=== PATIENT | female | born 1970 | race Hispanic/Latino ===

== ENCOUNTER 2016-07-25 16:35 | Inpatient (IN) | payer MEDICAID, OTHER ==
[~2016-07-25] VITALS: Ht 154.9 cm; Wt 41.8 kg
[~2016-07-25 16:35] MED LIST: ABIL5TAB5 PO; ALBU17IN INH; ALBU17IN2 INH; CETI10TA OR; CITA40TA4 PO; DEPA500T2 OR; DOXY100T OR; EFFE150C OR; EUCECRE3 TOP; HYDR4TAB PO; MAG400TA PO; MAGN1TAB25 PO; MAGN200T3 PO; MAXA10TA15 PO; MIRT15SOTA PO; MIRT1TAB3 PO; NAPR500T81 OR; NICO21DI5 TD; PROTPAK PO; REME15TA2 PO; TRAZ50TA4 PO; TYLE325T5 PO; VITA100L PO; VITA200028 PO; ZOLO50TA OR
[2016-07-25] MEDS ORDERED: CHARCOAL ACTIVATED LIQUID 25 GM/120 ML BTL As Ordered ONE (16:59)
[2016-07-25 17:22] LABS: MEAN CORPUSCULAR HGB CONC 34.2 g/dl (32.0-36.5); MEAN CORPUSCULAR VOLUME 93.4 fl (80.0-96.0); RED CELL DISTRIBUTION WIDTH 13.7 % (11.5-14.5); WHITE BLOOD COUNT 4.7 K/mm3 (4.0-10.0)
[2016-07-25 17:25] LABS: CONTROL LINE HCG INT CTR LINE PRESENT
[2016-07-25 17:37] LABS: ALBUMIN/GLOBULIN RATIO 1.29 (1.00-1.93); ALKALINE PHOSPHATASE 95 U/L (45-117); ALT/SGPT 12 U/L (12-78); ANION GAP 10 MEQ/L (8-16); AST/SGOT 11 U/L (15-37); BILIRUBIN,DIRECT 0.2 MG/DL (0.0-0.2); BILIRUBIN,TOTAL 0.6 MG/DL (0.2-1.0); BLOOD UREA NITROGEN 9 MG/DL (7-18); CALCIUM LEVEL 8.8 MG/DL (8.5-10.1); CARBON DIOXIDE LEVEL 27 MEQ/L (21-32); CHLORIDE LEVEL 102 MEQ/L (98-107); CREATININE FOR GFR 0.62 MG/DL (0.55-1.02); GLOMERULAR FILTRATION RATE > 60.0 (>58); GLUCOSE, FASTING 111 MG/DL (70-105); POTASSIUM SERUM 3.7 MEQ/L (3.5-5.1); SODIUM LEVEL 139 MEQ/L (136-145); TOTAL PROTEIN 7.1 GM/DL (6.4-8.2)
[2016-07-25 17:57] LABS: AMPHETAMINES LEVEL URINE NEGATIVE (NEGATIVE); BENZODIAZEPINES URINE NEGATIVE (NEGATIVE); COCAINE METABOLITE URINE NEGATIVE (NEGATIVE); CONTROL LINE INT CTR LINE PRESENT; METHADONE URINE NEGATIVE (NEGATIVE); OPIATES URINE NEGATIVE (NEGATIVE); TRICYCLIC ANTIDEPRESS URINE NEGATIVE (NEGATIVE)
[2016-07-25] MEDS ORDERED: MIRT1TAB3 PO (18:53)
[2016-07-25] MEDS ORDERED: [UNRECOGNIZED DRUG - CODE] PO (18:53)
[2016-07-25] MEDS ORDERED: PROT1TAB2 PO (18:53)
[2016-07-25] MEDS ORDERED: MAXA10TA15 PO (18:54)
[2016-07-25] MEDS ORDERED: ONDANSETRON 4MG/2ML VIAL (J2405) IV PRN (19:30)
--- NOTE | 2016-07-25 20:05 | ECGEPIP ---
Stationary ECG Study [facility] - ED Test Date: 2016-07-25 Pat Name: JUSTUS HALL Department: Room: - Gender: F Filenet Developer: smith : 1970 Requested By: TRE Jean Order Number: [id number] Reading MD: Valerie Avila Measurements Intervals [place] Rate: 140 P: 81 ME: 132 QRS: 25 QRSD: 72 T: 68 QT: 279 QTc: 427 Interpretive Statements SINUS TACHYCARDIA, POSSIBLE ATRIAL FLUTTER MINIMAL ST DEPRESSION ABNORMAL RHYTHM ECG KRYSTA NSTTW ABNORMALITY Electronically Signed On 07-25-2016 20:05:08 EST by Valerie Avila
[2016-07-25] MEDS: HEPARIN SOD (PORCINE) 5000 UNITS/ML VIAL SC SCH (22:00)
--- NOTE | 2016-07-25 22:01 | EDDOCDS ---
Physician Documentation [facility] Name: Gracy Trejo Age: 45 yrs Sex: Female : 1970 Arrival Date: 07/25/2016 Time: 16:35 Bed 4 Private MD: Michael Arreola MD Disposition: 07/25/16 18:53 Hospitalization ordered by Ana Gagnon for Inpatient Admission. Preliminary diagnosis are Poisoning by other antipsychotics and neuroleptics, intentional self-harm, Hypotension. - Bed requested for PCU. - Status is Inpatient Admission. sls1 - Condition is Stable. - Problem is new. - Symptoms are unchanged. Historical: - Allergies: Codeine Sulfate; eggs; PENICILLINS; - Home Meds: 1. Maxalt-STICK INSERTER 10 mg oral TbDL 1 tab as needed for as needed 2. Protonix 40 mg Oral TbEC 1 tab once daily (Last dose: 07/25/2016 08:00) 3. risperidone 0.5 mg oral tab once daily - PMHx: Depression; Migraine Headaches; - PSHx: ; anal fissure; - Social history: Smoking status: Patient uses tobacco products, heavy tobacco smoker. No barriers to communication noted, The patient speaks fluent [place]i, Speaks appropriately for age, Preferred Language: O[place]i. - Family history: Not pertinent. - : The pt / caregiver states he / she is not on anticoagulants. Home medication list is obtained from the patient. - Exposure Risk Screening:: None identified. COSMETOLOGIST: 07/25 18:27 LMP N/A - pt states menopausal hs1 Vital Signs: 16:46 BP 94 / 56; Pulse 146; Resp 18; Pulse Ox 98% ; Weight 40.37 kg / 89 lbs; Height 5 ft. 1 hs1 in. (154.94 cm); Pain 0/10; 16:46 BP 94 / 56 (auto/); af2 16:47 Pulse 152 MON; Resp 18 S; Pulse Ox 98% on R/A; af2 16:53 Pulse 148 MON; Pulse Ox 98% ; af2 16:57 Temp 96.9(O); jlf 17:01 BP 94 / 54 (auto/); hs1 17:01 Pulse 144 MON; Pulse Ox 100% ; hs1 17:16 BP 106 / 55 (auto/); hs1 17:16 Pulse 148 MON; Pulse Ox 98% ; hs1 17:31 BP 117 / 66 (auto/); hs1 17:31 Pulse 160 MON; Pulse Ox 99% ; hs1 17:46 BP 95 / 58 (auto/); hs1 17:46 Pulse 136 MON; Pulse Ox 99% ; hs1 20:03 BP 126 / 56 LA; Pulse 140; Resp 18 S; Pulse Ox 96% on R/A; af2 21:54 BP 95 / 56; Pulse 102; Resp 18; Temp 99.3(TE); Pulse Ox 94% on R/A; nn1 16:46 Body Mass Index 16.82 (40.37 kg, 154.94 cm) hs1 MDM: 16:38 Consult PFS/PSA/Supervisor Carbon Electrodes ordered. br1 16:38 Consult PFS/PSA/Supervisor Carbon Electrodes: Patient's case requires discussion with on-call br1 Psychiatrist ordered. 16:38 PSA/PFS to call Nursing Nutrition Partner, to enter patient data on [place] Safe Act if patient br1 involuntarily admitted or transferred for SI or HI ordered. 16:38 Call Poison Control ordered. br1 16:38 Confirm accurate psychiatric medication list and times of last dosage ordered. br1 16:38 Detain Pt Until Medically/PFS Cleared ordered. br1 16:38 IV Saline Lock ordered. br1 16:38 Project Management Specialist/Pulse Ox/q 30 min VS ordered. br1 16:39 ECG WITH READING ER PHYS+CARDIAG ordered. EDMS 16:40 Acetaminophen Level Ordered. EDMS 16:40 Basic Metabolic Profile Ordered. EDMS 16:40 Complete Blood Count Ordered. EDMS 16:40 Drug Eval Toxicology ED Only Ordered. EDMS 16:40 Ethyl Alcohol (ethanol) Ordered. EDMS 16:40 Liver Profile Ordered. EDMS 16:40 Salicylate Level Ordered. EDMS 16:40 Thyroid Stimulating Hormone Ordered. EDMS 16:53 NS 0.9% 500 ml IV at bolus once ordered. br1 16:53 NS 0.9% 1000 ml IV at 150 mL/hr continuous ordered. br1 16:53 Oral Temp ordered. br1 16:54 HCG,Serum Qualitative Ordered. EDMS 16:55 Activated Charcoal (1g/kg) Suspension 40 grams PO once ordered. br1 17:07 TROPONIN Ordered. EDMS 17:12 Activated Charcoal (1g/kg) Suspension 40 grams PO once ordered. hs1 17:43 Financial registration complete. gjb 17:47 [facility] [place] [place] Payment Agreement was scanned into [employer] and attached to record. gjb 17:49 NS 0.9% 500 ml IV at bolus once ordered. br1 17:50 Acetaminophen Level Reviewed. br1 17:50 Basic Metabolic Profile Reviewed. br1 17:50 Liver Profile Reviewed. br1 17:50 Salicylate Level Reviewed. br1 17:50 HCG,Serum Qualitative Reviewed. br1 17:50 Complete Blood Count Reviewed. br1 17:50 Ethyl Alcohol (ethanol) Reviewed. br1 17:50 TROPONIN Reviewed. br1 17:52 Hcg, Serum Quantitative Ordered. EDMS 18:38 Acetaminophen Level Reviewed. br1 18:38 Basic Metabolic Profile Reviewed. br1 18:38 Liver Profile Reviewed. br1 18:38 Salicylate Level Reviewed. br1 18:38 Drug Eval Toxicology ED Only Reviewed. br1 18:38 Ethyl Alcohol (ethanol) Reviewed. br1 18:38 Thyroid Stimulating Hormone Reviewed. br1 18:38 TROPONIN Reviewed. br1 18:38 Hcg, Serum Quantitative Reviewed. br1 18:43 BED REQUEST+ADM ordered. EDMS 19:49 NPO DIET ordered. EDMS 19:50 COMPLETE BLOOD COUNT Ordered. EDMS 19:50 BASIC METABOLIC PROFILE Ordered. EDMS 19:51 Admission / Observation Status ordered. EDMS Administered Medications: 17:13 Drug: NS 0.9% 500 ml [sodium chloride 0.9 % intravenous solution] Route: IV; Rate: hs1 bolus; Site: left antecubital; 17:13 Drug: Activated Charcoal (1g/kg) 40 grams [activated charcoal 25 gram/120 mL oral hs1 suspension (3840 drps)] Route: PO; 17:55 Drug: NS 0.9% 500 ml [sodium chloride 0.9 % intravenous solution] Route: IV; Rate: hs1 bolus; Site: left antecubital; 18:26 Drug: NS 0.9% 1000 ml [sodium chloride 0.9 % intravenous solution] Route: IV; Rate: 150 hs1 mL/hr; Site: left antecubital; Signatures: Dispatcher [employer] EDMS Jake Hong MD MD br1 No Lomeli RN RN hs1 Virgen Weiss RN RN sls1 Harini Saldana RN RN af2 Shawna Romero b The chart was reviewed and I authenticate all verbal orders and agree with the evaluation and treatment provided.Corrections: (The following items were deleted from the chart) 17:07 17:02 TROPONIN+LAB ordered. EDMS EDMS Attachments: 17:47 [facility] Payment Agreement sixto MTDD
--- NOTE | 2016-07-25 22:01 | EDDOCDS ---
Nurse's Notes [facility] Name: Gracy Trejo Age: 45 yrs Sex: Female : 1970 Arrival Date: 07/25/2016 Time: 16:35 Bed 4 Private MD: Michael Arreola MD Diagnosis: Poisoning by other antipsychotics and neuroleptics, intentional self-harm;Hypotension Presentation: 07/25 16:38 Presenting complaint: EMS states: took approx 20+ risperidone. Pt states has not been hs1 taking regularly and has history of anxiety and depression and decided today to take them. When asked if she wanted to end her life pt responds with "I guess". Pt appears unkempt. Pt openly admits to not wanting to live. Adult Sepsis Screening: The patient does not have new or worsening altered mentation. Patient's respiratory rate is less than 22. Systolic blood pressure is greater than 100. Patient has a qSOFA score of 0- Negative Sepsis Screen. Suicide/Homicide risk assessment- The patient admits to and/or has been reported to be having suicidal ideations. The patient reports that he/she has not been admitted to an inpatient mental health facility in the last 30 days. The patient reports that he/she has a recent or current history of substance abuse. The patient reports that he/she has no prior history of suicide attempt and/or organized plan. The patient reports that he/she has experienced a significant life altering event in the last 30 days. The patient reports that he/she has adequate social support. The patient reports he/she has no significant chronic medical condition(s). Status: Patient is not a business services clerk or dependent. Transition of care: patient was not received from another setting of care. 16:38 Acuity: NANCY Level 3 hs1 16:38 Method Of Arrival: Ambulance hs1 Triage Assessment: 16:45 General: Appears in no apparent distress, Behavior is appropriate for age. General: hs1 Appears unkempt. Pain: Denies pain. HIV screening NA for this visit Offered previously. Neurological: Level of Consciousness is awake, alert, obeys commands. Cardiovascular: Capillary refill < 3 seconds. Respiratory: Airway is patent Respiratory effort is even, unlabored, Respiratory pattern is regular, symmetrical, Breath sounds are diminished bilaterally. 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 Maxalt-GRADER GREEN MEAT 10 mg oral TbDL 1 tab as needed for as needed 2. Protonix 40 mg Oral TbEC 1 tab once daily (Last dose: 07/25/2016 08:00) 3. risperidone 0.5 mg oral tab once daily - PMHx: Depression; Migraine Headaches; - PSHx: ; anal fissure; - Social history: Smoking status: Patient uses tobacco products, heavy tobacco smoker. No barriers to communication noted, The patient speaks fluent [place] Citizen, Speaks appropriately for age, Preferred Language: [place] Citizen. - Family history: Not pertinent. - : The pt / caregiver states he / she is not on anticoagulants. Home medication list is obtained from the patient. - Exposure Risk Screening:: None identified. Screenin:53 Screening information is obtained from the patient. Fall risk: No risks identified. hs1 Assistance ADL's: requires no assistance with activities of daily living. Abuse/DV Screen: The patient / caregiver reports he/she is: not in a situation that causes fear, pain or injury. Nutritional screening: No deficits noted. Advance Directives: There is no active DNR order. home support is adequate. Assessment: 17:28 General: Appears in no apparent distress, unkempt, Behavior is cooperative. Pain: hs1 Denies pain. Neurological: Level of Consciousness is awake, alert, obeys commands. Cardiovascular: Rhythm is sinus tachycardia No ectopy. Reports palpitations. Respiratory: Airway is patent Respiratory effort is even, unlabored, Respiratory pattern is regular, symmetrical. Derm: Skin is pink, warm & dry. normal. 18:27 General: Appears in no apparent distress, comfortable, unkempt, Behavior is appropriate hs1 for age, cooperative. Pain: Denies pain. Neurological: Level of Consciousness is awake, alert, obeys commands, Pt asking about going home and patient is aware that she cannot go home at present due to overdosing on medications and telling staff that she had taken them to kill herself. . Cardiovascular: Rhythm is sinus tachycardia No ectopy. Derm: Skin is pink, warm & dry. normal. 19:04 General: Appears in no apparent distress, comfortable, Behavior is anxious, appropriate af2 for age, cooperative, assumed care of pt at this time, rr even and unlabored. pt requests to have cell phone upstairs, updated regarding psych rules. pt states that she's hungry.. Neurological: Level of Consciousness is awake, alert, obeys commands. Cardiovascular: Rhythm is sinus tachycardia No ectopy. Respiratory: Airway is patent Respiratory effort is even, unlabored. Derm: Skin is normal. 19:38 General: Appears unkempt, Behavior is uncooperative, pt removes her own cardiac leads, af2 piv, SpO2 probe, and blood pressure cuff. states to this freelance copywriter "I'm leaving, I don't have to stay here." pt attempts to leave room and leave ER. pt escorted back to room by this freelance copywriter, Dr. Boswell, and Yanick, [employer] SERVICE SPRAY SUPERVISOR. . 19:48 General: Hospitalist notified of pt's outburst and attempt to leave ER. No new orders af2 received. Sitter at bedside.. 20:11 General: per Dr. Hong, poison control was called by day shift nursing staff.. af2 20:25 General: Appears in no apparent distress, comfortable, Behavior is appropriate for age, af2 cooperative, pt sitting upright on stretcher. sitter at bedside. . Neurological: Level of Consciousness is awake, alert, obeys commands. Cardiovascular: Rhythm is sinus tachycardia No ectopy. Respiratory: Airway is patent Respiratory effort is even, unlabored. Derm: Skin is normal. 21:06 General: Appears in no apparent distress, comfortable, Behavior is appropriate for age, af2 cooperative, pt seated on stretcher. rr even and unlabored. . Neurological: Level of Consciousness is awake, alert, obeys commands. Cardiovascular: Rhythm is sinus tachycardia No ectopy. Respiratory: Airway is patent Respiratory effort is even, unlabored. Derm: Skin is normal. 21:55 General: Appears in no apparent distress, comfortable, Behavior is appropriate for age, af2 cooperative. Neurological: Level of Consciousness is awake, alert, obeys commands. Cardiovascular: Rhythm is sinus tachycardia No ectopy. Respiratory: Airway is patent Respiratory effort is even, unlabored. Derm: Skin is pink, warm & dry. normal. Vital Signs: 16:46 BP 94 / 56; Pulse 146; Resp 18; Pulse Ox 98% ; Weight 40.37 kg; Height 5 ft. 1 in. hs1 (154.94 cm); Pain 0/10; 16:46 BP 94 / 56 (auto/); af2 16:47 Pulse 152 MON; Resp 18 S; Pulse Ox 98% on R/A; af2 16:53 Pulse 148 MON; Pulse Ox 98% ; af2 16:57 Temp 96.9(O); jlf 17:01 BP 94 / 54 (auto/); hs1 17:01 Pulse 144 MON; Pulse Ox 100% ; hs1 17:16 BP 106 / 55 (auto/); hs1 17:16 Pulse 148 MON; Pulse Ox 98% ; hs1 17:31 BP 117 / 66 (auto/); hs1 17:31 Pulse 160 MON; Pulse Ox 99% ; hs1 17:46 BP 95 / 58 (auto/); hs1 17:46 Pulse 136 MON; Pulse Ox 99% ; hs1 20:03 BP 126 / 56 LA; Pulse 140; Resp 18 S; Pulse Ox 96% on R/A; af2 21:54 BP 95 / 56; Pulse 102; Resp 18; Temp 99.3(TE); Pulse Ox 94% on R/A; nn1 16:46 Body Mass Index 16.82 (40.37 kg, 154.94 cm) hs1 Vitals: 16:46 Log In Time N/A - ambulance arrival. hs1 ED Course: 16:36 Patient visited by Angelina Pavon, Churn Driller. lbd 16:36 Michael Arreola is Private Physician. lbd 16:36 Patient moved to Waiting lbd 16:36 Patient moved to 4 lbd 16:37 Jake Hong MD is Attending Physician. br1 16:38 Patient visited by No Lomeli RN. hs1 16:42 Triage Initiated hs1 16:55 Patient visited by Jake Hong MD. br1 16:57 Patient visited by Skip Mejia PCA. jlf 16:57 EKG done. (by ED staff). Reviewed by Jake Hong MD. jlf 16:58 Acetaminophen Level Sent. hs1 16:58 Basic Metabolic Profile Sent. hs1 16:58 Complete Blood Count Sent. hs1 16:58 Ethyl Alcohol (ethanol) Sent. hs1 16:58 Liver Profile Sent. hs1 16:58 Salicylate Level Sent. hs1 16:58 Thyroid Stimulating Hormone Sent. hs1 16:58 HCG,Serum Qualitative Sent. hs1 17:13 TROPONIN Sent. hs1 17:43 Patient visited by Skip Mejia PCA. jlf 17:47 [facility] Payment Agreement was scanned into [employer] and attached to record. gjb 17:50 Patient name changed from Gracy\\S\\\\S\\Neil\\S\\ to Gracy\\S\\ \\S\\Neil. EDMS 17:50 Maintain field IV. Site clean & dry. Gauge & site: 18 gauge in left AC. hs1 17:53 Patient visited by No Lomeli RN. hs1 18:03 Hcg, Serum Quantitative Sent. hs1 18:26 The patient / caregiver is instructed regarding the plan of care and ED course. hs1 18:26 No procedures done that require assistance. hs1 18:29 Patient visited by No Lomeli RN. hs1 18:53 GenakushAna is Hospitalizing Provider. br1 19:04 Harini Saldana RN is Primary Nurse. af2 19:07 Patient visited by Harini Saldana RN. af2 19:22 Patient visited by Harini Saldana RN. af2 19:40 Patient visited by Harini Saldana RN. af2 19:53 Patient visited by Harini Saldana RN. af2 20:06 EKG-ADULT Returned. EDMS 20:07 Patient visited by Harini Saldana RN. af2 20:14 Patient visited by Harini Saldana RN. af2 20:17 IV was D/C'd by patient. af2 20:18 Patient visited by Harini Saldana RN. af2 20:18 Inserted saline lock: 20 gauge in left antecubital area The patient tolerated the af2 procedure well. 20:26 Patient visited by Harini Saldana RN. af2 21:07 Patient visited by Harini Saldana RN. af2 21:56 Patient visited by Harini Saldana RN. af2 Administered Medications: 17:13 Drug: NS 0.9% 500 ml [sodium chloride 0.9 % intravenous solution] Route: IV; Rate: hs1 bolus; Site: left antecubital; 17:13 Drug: Activated Charcoal (1g/kg) 40 grams [activated charcoal 25 gram/120 mL oral hs1 suspension (3840 drps)] Route: PO; 17:55 Drug: NS 0.9% 500 ml [sodium chloride 0.9 % intravenous solution] Route: IV; Rate: hs1 bolus; Site: left antecubital; 18:26 Drug: NS 0.9% 1000 ml [sodium chloride 0.9 % intravenous solution] Route: IV; Rate: 150 hs1 mL/hr; Site: left antecubital; Order Results: Lab Order: Acetaminophen Level; SPEC'M 07/25/16 16:58 Test: ACETAMINOPHEN LEVEL; Value: < 2.0; Range: 10.0-30.0; Abnormal: Below low normal; Units: UG/ML; Status: F Lab Order: Basic Metabolic Profile; SPEC'M 07/25/16 16:58 Test: GLUCOSE, FASTING; Value: 111; Range: 70-105; Abnormal: Above high normal; Units: MG/DL; Status: F Test: BLOOD UREA NITROGEN; Value: 9; Range: 7-18; Units: MG/DL; Status: F Test: CREATININE FOR GFR; Value: 0.62; Range: 0.55-1.02; Units: MG/DL; Status: F Test: GLOMERULAR FILTRATION RATE; Value: > 60.0; Range: >58; Status: F Test: SODIUM LEVEL; Value: 139; Range: 136-145; Units: MEQ/L; Status: F Test: POTASSIUM SERUM; Value: 3.7; Range: 3.5-5.1; Units: MEQ/L; Status: F Test: CHLORIDE LEVEL; Value: 102; Range: 98-107; Units: MEQ/L; Status: F Test: CARBON DIOXIDE LEVEL; Value: 27; Range: 21-32; Units: MEQ/L; Status: F Test: ANION GAP; Value: 10; Range: 8-16; Units: MEQ/L; Status: F Test: CALCIUM LEVEL; Value: 8.8; Range: 8.5-10.1; Units: MG/DL; Status: F Test Note: ; Units are mL/min/1.73 m2 Chronic Kidney Disease Staging per NKF: Stage I & II GFR >=60 Normal to Mildly Decreased Stage III GFR 30-59 Moderately Decreased Stage IV GFR 15-29 Severely Decreased Stage V GFR <15 Very Little GFR Left ESRD GFR <15 on MANAGER [facility]IN[facility]Y Lab Order: Complete Blood Count; SPEC'M 07/25/16 16:58 Test: WHITE BLOOD COUNT; Value: 4.7; Range: 4.0-10.0; Units: K/mm3; Status: F Test: RED BLOOD COUNT; Value: 4.38; Range: 4.00-5.40; Units: M/mm3; Status: F Test: HEMOGLOBIN; Value: 14.0; Range: 12.0-16.0; Units: g/dl; Status: F Test: HEMATOCRIT; Value: 41.0; Range: 36.0-47.0; Units: %; Status: F Test: MEAN CORPUSCULAR VOLUME; Value: 93.4; Range: 80.0-96.0; Units: fl; Status: F Test: MEAN CORPUSCULAR HEMOGLOBIN; Value: 32.0; Range: 27.0-33.0; Units: pg; Status: F Test: MEAN CORPUSCULAR HGB CONC; Value: 34.2; Range: 32.0-36.5; Units: g/dl; Status: F Test: RED CELL DISTRIBUTION WIDTH; Value: 13.7; Range: 11.5-14.5; Units: %; Status: F Test: PLATELET COUNT, AUTOMATED; Value: 287; Range: 150-450; Units: k/mm3; Status: F Lab Order: Drug Eval Toxicology ED Only; SPEC'M 07/25/16 17:30 Test: AMPHETAMINES LEVEL URINE; Value: NEGATIVE; Range: NEGATIVE; Status: F Test: BARBITURATES URINE; Value: NEGATIVE; Range: NEGATIVE; Status: F Test: BENZODIAZEPINES URINE; Value: NEGATIVE; Range: NEGATIVE; Status: F Test: CANNABINOIDS URINE; Value: NEGATIVE; Range: NEGATIVE; Status: F Test: COCAINE METABOLITE URINE; Value: NEGATIVE; Range: NEGATIVE; Status: F Test: METHADONE URINE; Value: NEGATIVE; Range: NEGATIVE; Status: F Test: OPIATES URINE; Value: NEGATIVE; Range: NEGATIVE; Status: F Test: TRICYCLIC ANTIDEPRESS URINE; Value: NEGATIVE; Range: NEGATIVE; Status: F Test Note: ; ALL PRESUMPTIVE POSITIVE FINDINGS ARE UNCONFIRMED NORMAL VALUES THRESHOLD IN NG/ML AMPHETAMINES 1000 METHAMPHETAMINES 1000 BARBITURATES 300 BENZODIAZEPINES 300 CANNABINOIDS (THC) 50 COCAINE METABOLITE 300 METHADONE 300 OPIATES 300 PHENCYCLIDINE 25 TRICYCLIC ANTIDEPRESSANTS 1000 RESULTS ARE FOR MEDICAL PURPOSES ONLY. ALL URINE SPECIMENS WILL BE SAVED FOR 3 DAYS. IF CONFIRMATION OF A PRESUMPTIVE POSTIVE SCREEN RESULT IS DESIRED, CALL CHEMISTRY ([phone]) AND REQUEST URINE TO BE SENT TO REFERENCE LAB. FOR A LIST OF CLOSELY RELATED COMPOUNDS PLEASE CALL THE LAB. Lab Order: Ethyl Alcohol (ethanol); SPEC07/25/16 16:58 Test: ETHYL ALCOHOL (ETHANOL); Value: < 0.003; Range: 0.000-0.010; Units: %; Status: F Lab Order: Liver Profile; 07/25/16 16:58 Test: AST/SGOT; Value: 11; Range: 15-37; Abnormal: Below low normal; Units: U/L; Status: F Test: ALT/SGPT; Value: 12; Range: 12-78; Units: U/L; Status: F Test: ALKALINE PHOSPHATASE; Value: 95; Range: 45-117; Units: U/L; Status: F Test: BILIRUBIN,TOTAL; Value: 0.6; Range: 0.2-1.0; Units: MG/DL; Status: F Test: BILIRUBIN,DIRECT; Value: 0.2; Range: 0.0-0.2; Units: MG/DL; Status: F Test: TOTAL PROTEIN; Value: 7.1; Range: 6.4-8.2; Units: GM/DL; Status: F Test: ALBUMIN; Value: 4.0; Range: 3.2-5.2; Units: GM/DL; Status: F Test: ALBUMIN/GLOBULIN RATIO; Value: 1.29; Range: 1.00-1.93; Status: F Lab Order: Salicylate Level; 07/25/16 16:58 Test: SALICYLATE LEVEL; Value: 4.5; Range: 5.0-30.0; Abnormal: Below low normal; Units: MG/DL; Status: F Lab Order: Thyroid Stimulating Hormone; 07/25/16 16:58 Test: THYROID STIMULATING HORMONE; Value: 1.170; Range: 0.358-3.740; Units: uIU/ML; Status: F Lab Order: HCG,Serum Qualitative; 07/25/16 16:58 Test: HCG, SERUM QUALITATIVE; Value: POSITIVE; Range: NEGATIVE; Abnormal: Abnormal; Status: F Lab Order: TROPONIN; SPEC'M 07/25/16 16:58 Test: TROPONIN I; Value: < 0.02; Range: < 0.10; Units: NG/ML; Status: F Test Note: ; Troponin I Reference Interval for [facility] LOCI: 99th Percentile= 0.00-0.045 ng/ml Risk Stratification: <= 0.10 ng/ml Decreased Risk for Adverse Clinical Events. 0.10-1.50 ng/ml Increased Risk for Adverse Clinical Events. Evaluation of additional criterion and/or repeat testing in 2-6 hours is suggested to rule out myocardial damage. >= 1.50 ng/ml Indicative of Myocardial Injury. Lab Order: Hcg, Serum Quantitative; SPEC'M 07/25/16 16:57 Test: HCG, SERUM QUANTITATIVE; Value: 8; Units: MIU/ML; Status: F Test Note: ; GESTATIONAL AGE APPROXIMATE HCG RANGE (MIU/ML) 0.2-1 WEEK 5-50 1-2 WEEKS 50-500 2-3 WEEKS 100-5,000 3-4 WEEKS 500-10,000 4-5 WEEKS 1,000-50,000 5-6 WEEKS 10,000-100,000 6-8 WEEKS 15,000-200,000 2-3 MONTHS 10,000-100,000 NON FEMALES LESS THAN 3.0 Patient samples may contain human heterophilic antibodies that could react with immunoassays to give falsely elevated or depressed results. This assay has been designed to minimize interference from heterophilic antibodies. Elevated hCG levels have also been associated with trophoblastic disease and nontrophoblastic neoplasms. The possibility of having these diseases should be considered before a diagnosis of is made. This test is not intended for use as a surrogate marker for aiding in the diagnosis or monitoring the treatment of cancer patients. [facility] methodology. Outcome: 18:53 Decision to Hospitalize by Provider. br1 20:03 Discharge Assessment: Patient awake, alert and oriented x 3. No cognitive and/or af2 functional deficits noted. Patient verbalized understanding of disposition instructions. patient administered narcotics - no. The following High Risk Discharge criteria are identified: Yes, see pfs note. Condition: stable. No special radiology studies were completed. Property :Personal belongings accompany Pt. 21:55 Admission hand-off: Report Faxed Fax receipt verified by JOSE Rogers . nn1 22:00 Patient left the ED. sls1 Signatures: Dispatcher [employer] EDMS Angelina Pavon, Churn Driller Unit lbd Jake Hong MD MD br1 No Lomeli RN RN hs1 Virgen Weiss RN RN sls1 Skip Mejia, BREANA [employer] SERVICE SPRAY SUPERVISOR hugo Harini SaldanaRN RN af2 Yoel RichterRN RN nn1 Shawna Romero Corrections: (The following items were deleted from the chart) 17:12 17:12 Activated Charcoal (1g/kg) Suspension 40 grams PO hs1 hs1 MTDD
[2016-07-25 22:14] VITALS: BP 125/58
[2016-07-25] MEDS: NS 1,000 ML IV SCH (22:23)
[2016-07-25 23:59] VITALS: BP 88/51
[2016-07-26 01:00] VITALS: BP 92/56
[2016-07-26 04:00] VITALS: BP 91/50
[2016-07-26] MEDS: NS 1,000 ML IV SCH ×3 (04:52→15:22)
[2016-07-26] MEDS: HEPARIN SOD (PORCINE) 5000 UNITS/ML VIAL SC SCH ×3 (05:38→22:00)
[2016-07-26 05:39] LABS: MEAN CORPUSCULAR HGB CONC 33.8 g/dl (32.0-36.5); MEAN CORPUSCULAR VOLUME 94.6 fl (80.0-96.0); RED CELL DISTRIBUTION WIDTH 13.7 % (11.5-14.5); WHITE BLOOD COUNT 3.5 K/mm3 (4.0-10.0)
[2016-07-26 06:00] LABS: ANION GAP 8 MEQ/L (8-16); BLOOD UREA NITROGEN 4 MG/DL (7-18); CALCIUM LEVEL 7.8 MG/DL (8.5-10.1); CARBON DIOXIDE LEVEL 27 MEQ/L (21-32); CHLORIDE LEVEL 110 MEQ/L (98-107); CREATININE FOR GFR 0.62 MG/DL (0.55-1.02); GLOMERULAR FILTRATION RATE > 60.0 (>58); GLUCOSE, FASTING 86 MG/DL (70-105); POTASSIUM SERUM 3.5 MEQ/L (3.5-5.1); SODIUM LEVEL 145 MEQ/L (136-145)
[2016-07-26 07:30] VITALS: BP 90/51
--- NOTE | 2016-07-26 10:27 | HPE ---
DATE OF ADMISSION: 07/25/2016 PRIMARY CARE PROVIDER: Dr. Michael Arreola HISTORY OF PRESENT ILLNESS: The patient is a 45-year-old female with a past medical history significant for depression and migraine headache, brought into [facility] by ambulance on 07/25/2016 after suicidal attempt. Patient has a history of depression; however, she has not been compliant with her medications. Today she stated, "I don't want to live anymore;" therefore, she took approximately more than 20 risperidone for her suicidal attempt. Shortly after the medication ingestion, she called the shelter case manager, and shelter case manager called an ambulance to bring the patient to the hospital. Initially patient complained about significant heart palpitations without any chest pain. The patient denies any nausea, vomiting. Denies any shortness of breath. Patient stated she has been having suicidal thoughts for a long time. In the emergency room, patient received activated charcoal 40 grams by mouth, and patient received 1 liter fluid bolus, and fluids running at 150 mL per hour. The hospitalist team was called for admission. ALLERGIES: CODEINE, PENICILLIN. HOME MEDICATIONS: - Maxalt 10 mg as needed for headaches - risperidone 0.5 mg by mouth daily (patient has not been very compliant) PAST MEDICAL HISTORY: 1. Depression. 2. Migraine headaches. PAST SURGICAL HISTORY: 1. section. 2. Anal fissure repair. SOCIAL HISTORY: Patient continues to smoke half a pack daily for 29 years. Patient has a drinking history. Patient states she is in the process of going to Alcoholics Anonymous (AA). Last drink was a few weeks ago. Denies any recreational drug use. REVIEW OF SYSTEMS: GENERAL: No fever. No chills. HEENT: No vision change. No auditory changes. CARDIOVASCULAR: Positive for palpitations. No chest pain. RESPIRATORY: No shortness of breath. No cough. No sputum production. GASTROINTESTINAL: No nausea. No vomiting. No abdominal pain. No diarrhea. MUSCULOSKELETAL: No muscle pain or joint pain. NEUROLOGIC: No numbness or tingling. PSYCHIATRIC: History of depression. OBJECTIVE: VITAL SIGNS: Blood pressure is 95/58, pulse is 136, respirations 18, temperature 96.9, pulse oximetry is 98.9%. Body weight is 40.37 kg, body height is 154.9 cm. GENERAL: Fatigued, drowsy, alert and oriented times three. HEENT: Normocephalic, atraumatic. Extraocular motor grossly intact. CARDIOVASCULAR: Distant heart sounds. Positive S1, S2. Regular rate. LUNGS: Clear to auscultation bilaterally. No wheezes or rhonchi. ABDOMEN: Soft, nontender, nondistended. Bowel sounds present. No rebound. No guarding. MUSCULOSKELETAL: No lower extremity edema. No sign of cyanosis. NEUROLOGIC: Sensation to fine touch grossly intact. Muscle strength 5/5. LABORATORY DATA: WBC 4.7, hemoglobin 14, hematocrit is 41, platelet count is 287. Sodium is 139, potassium 3.7, chloride 102, carbon dioxide 27, BUN 9, creatinine 0.62, GFR greater than 60, fasting glucose 111, calcium 8.8. Total bilirubin is 0.6, direct bilirubin 0.2, AST is 11, ALT is 12, alkaline phosphatase is 95. Troponin I is less than 0.02. Total protein 7.1, albumin 4. TSH 1.17. HCG quantitaive is A. Urine toxicology is negative. Alcohol level is negative. ASSESSMENT AND PLAN: 1. Suicidal attempt. Patient will be admitted to progressive care unit (PCU) on inpatient status. Patient will have a sitter. Patient overdosed on Risperdal. Will contact poison control for recommendations. Patient had activated charcoal in the emergency department (ED). Will continue aggressive IV fluids. Patient will be nothing by mouth. We will consider consulting psychiatry tomorrow. 2. History of depression. Patient has not been compliant with the Risperdal. 3. History of migraine. 4. Deep vein thrombosis (DVT) prophylaxis. On heparin.
--- NOTE | 2016-07-26 11:46 | REP ---
PELVIC ULTRASOUND: Real-time sonographic evaluation of the pelvis performed utilizing transabdominal and endovaginal technique. Reportedly, beta HCG value is 8. The uterus measures 6. 8 x 3.0 x 5.2 cm. Endometrial thickness is 2 mm. No endometrial fluid collection or gestational sac is seen. The ovaries are normal in size and echotexture, right ovary measuring 1.9 x 1.9 x 3.5 cm and the left ovary 3.8 x 1.9 x 1.9 cm. There is no adnexal mass or free fluid. There is blood flow seen in each ovary with duplex Doppler evaluation, with no torsion, RI of the right ovary is 0.79 and left ovary 0.83. IMPRESSION: Normal appearing uterus and ovaries. No adnexal mass or torsion. Recommend continued correlation with quantitative beta HCG values. Signed by Reyes Montalvo MD 07/26/2016 03:20 P
[2016-07-26 12:00] VITALS: BP 103/54
--- NOTE | 2016-07-26 16:11 | CR ---
DATE OF CONSULTATION: 07/26/2016 This is a 45-year-old white female who reports that she lives by herself. Previous records show that she is and has lived with her . The patient is a poor historian. She has a history of major depression, recurrent with multiple suicide attempts over the years. The patient does report recent depression with suicidal thoughts. There are no precipitating stressors. Her appetite is poor. She has lost weight. She has trouble sleeping at night. Her concentration is poor. She complains of lack of energy. She denies any psychotic symptoms. No history of manic episodes. According to the hospital records, she is on Risperdal 0.5 mg at bedtime but she has poor medication compliance. Indication for the Risperdal is unclear. In any event, she did take an overdose of at least 20 of the 0.5 mg tablets apparently. In the past, she was on Remeron SolTab 30 mg at bedtime. Prior to that, she was on Effexor and Depakote. The patient was hospitalized here back in December 2015 after a similar overdose. The patient is in treatment with Dr. Gamble at the [facility]. Of note is that the patient does have a positive hCG which apparently is false positive. MENTAL STATUS EXAMINATION: The patient is seen in the progressive care unit with a sitter. The sitter reports that she has been resting and sleeping most of the day. She apparently is still sedated and tired from her overdose of Risperdal. Affect does appear sad. She does admit to moderate to severe depression with suicidal ideation. The patient volunteers little. She denies any psychotic symptoms. She is not hearing voices. No signs of paranoia or thought disorder. No signs of gwendolyn. Insight and judgment appear quite poor. DIAGNOSIS: Major depression, recurrent, severe with apparent anorexia. PLAN: The patient will be transferred to inpatient mental health as soon as a bed is available. Staff to consult with Dr. Gamble regarding her treatment plan.
[2016-07-26 17:35] VITALS: BP 122/65
[2016-07-26 18:49] LABS: CONTROL LINE UCG INT CTR LINE PRESENT
[2016-07-26 22:00] VITALS: BP 94/56
--- NOTE | 2016-07-26 23:24 | IPNPDOC ---
Assessment/Plan Date Seen The patient was seen on 07/26/16. Problems Problems: (1) Depression Status: Acute Problem Specific Plan: Consult Specialist Problem Text: Acute on chronic. We consulted psych, who will see the patient. She will be discharged to inpatient mental health. Patient states that she has been following with Dr. Gamble, though she has not been taking her medications. She didn't tell Dr. Gamble that she wasn't taking her medication. It does sound as though there was supposed to be a medication in addition to Risperidone that she was to be taking, but she states that it wasn' t at the pharmacy. (2) Suicidal overdose Status: Acute Problem Text: Per the recommendations of poison control, patient is being monitored. She denies a polypharmacy overdose. She will be ready for discharge to [facility] tomorrow for further mental health management. (3) Abnormal human chorionic gonadotropin (hCG) Status: Chronic Problem Text: This low level hCG has been present for at least 6 months, and appears to be a false positive. It appears that she was referred to biodiesel process control technician for further evaluation, but I don't see any notes suggesting that she went. At this level, it is low enough that the source could be pituitary. (Trying a course of OCPs and checking for suppression would confirm this.) Urine hCG and pelvic organ US ordered to confirm that this is not a . OK for outpatient workup after excluded. Plan / VTE VTE Prophylaxis Ordered?: Yes Disposition [facility] Subjective Review of Systems CC/HPI The patient is a 45-year-old female admitted with a reason for visit of Depression/Suicidal Overdose. Events since last encounter Patient admits to feeling tired today. She admits to depressed mood, but states she now regrets her suicide attempt. She states that she only took risperidone, and wants to be very clear that she only took pills that were prescribed to her. When I enter the room she is talking with her shoe caser. Constitutional: Denies: Fever Skin: Denies: Rash Pulmonary: Denies: Cough, Dyspnea Cardiovascular: Denies: Chest Pain, Palpitations Gastrointestinal: Denies: Constipation, Diarrhea, Nausea, Vomiting Psych: Reports: Depression, Thoughts of Self Harm Objective Physical Examination General Exam: Positive: Alert, Cooperative Chest Exam: Positive: Clear to auscultation, Normal air movement Heart Exam: Positive: Rate Normal Telemetry: Positive: Tachycardia (normal sinus rhythm to sinus tach on monitor) Abdomen Exam: Positive: Normal bowel sounds Psych Exam: Positive: Other (guarded), Negative: Mood NL Vital Signs/I&O Vital Signs Date Time Temp Pulse Resp B/P Pulse Ox O2 Delivery O2 Flow Rate FiO2 07/26/16 20:37 Room Air 07/26/16 17:35 98.5 109 18 122/65 98 I&O- Last 24 Hours up to 6 AM 07/26/16 05:59 Intake Total 975 ml Output Total 0 ml Balance 975 ml Laboratory Data Labs 24H Laboratory Tests 2 07/26/16 05:22: Anion Gap 8, Blood Urea Nitrogen 4#L, Creatinine 0.62, Sodium Level 145, Potassium Level 3.5, Chloride Level 110H, Carbon Dioxide Level 27, Calcium Level 7.8L, Glomerular Filtration Rate > 60.0 07/26/16 17:14: Urine Test NEGATIVE CBC/BMP Laboratory Tests 07/26/16 05:22 Calcium Level 7.8 L, Red Blood Count 3.70 L, Mean Corpuscular Volume 94.6, Mean Corpuscular Hemoglobin 32.0, Mean Corpuscular Hemoglobin Concent 33.8, Red Cell Distribution Width 13.7 AMARIS ENG DO Jul 26, 2016 23:24
[2016-07-27] MEDS: NS 1,000 ML IV SCH ×3 (01:18→11:22)
[2016-07-27] MEDS: HEPARIN SOD (PORCINE) 5000 UNITS/ML VIAL SC SCH ×2 (05:34→13:46)
[2016-07-27 06:00] VITALS: BP 96/57
[2016-07-27 06:37] LABS: MEAN CORPUSCULAR HEMOGLOBIN 32.1 pg (27.0-33.0); MEAN CORPUSCULAR VOLUME 94.5 fl (80.0-96.0); RED CELL DISTRIBUTION WIDTH 13.7 % (11.5-14.5); WHITE BLOOD COUNT 4.7 K/mm3 (4.0-10.0)
[2016-07-27 06:56] LABS: ANION GAP 9 MEQ/L (8-16); BLOOD UREA NITROGEN 3 MG/DL (7-18); CALCIUM LEVEL 7.7 MG/DL (8.5-10.1); CARBON DIOXIDE LEVEL 24 MEQ/L (21-32); CHLORIDE LEVEL 113 MEQ/L (98-107); CREATININE FOR GFR 0.44 MG/DL (0.55-1.02); GLOMERULAR FILTRATION RATE > 60.0 (>58); GLUCOSE, FASTING 86 MG/DL (70-105); POTASSIUM SERUM 3.5 MEQ/L (3.5-5.1); SODIUM LEVEL 146 MEQ/L (136-145)
--- NOTE | 2016-07-27 08:48 | DS.PDOC ---
Discharge Summary General Date of Admission Jul 25, 2016 at 19:22 Date of Discharge 07/27/16 Primary Care Physician: Thomas Arreola MD Attending Physician: AMARIS ENG DO Specialist/Consultants Involve: TAISHA EL MD Discharge Summary PROCEDURES PERFORMED DURING STAY: None. COMPLICATIONS/CHIEF COMPLAINT: Depression/Suicidal Overdose ADMISSION DIAGNOSES: 1. Suicide attempt via overdose 2. depression. DISCHARGE DIAGNOSES: 1. suicide attempt via overdose of seroquel 2. depression. 3. chronic mild elevation of beta-HCG without HISTORY OF PRESENT ILLNESS:The patient is a 45-year-old female with a past medical history significant for depression and migraine headache, brought into [facility] by ambulance on 07/25/2016 after suicidal attempt. Patient has a history of depression; however, she has not been compliant with her medications. Today she stated, "I don't want to live anymore;" therefore, she took approximately more than 20 risperidone for her suicidal attempt. Shortly after the medication ingestion, she called the wrapper caser, and wrapper caser called an ambulance to bring the patient to the hospital. Initially patient complained about significant heart palpitations without any chest pain. The patient denies any nausea, vomiting. Denies any shortness of breath. Patient stated she has been having suicidal thoughts for a long time. HOSPITAL COURSE: Patient was admitted for suicide attempt via overdose of seroquel. She was given 40g activated charcoal in ED. she was placed in PCU for monitoring with telemetry for the next 24 hours. As there were no events, she was moved to [facility] the following day. Psychiatry consulted on the patient and did recommend inpatient stay after she is medically cleared. Today the patient was seen and states she has no acute complaints. Denies chest pain, SOB , nausea, vomiting, diarrhea, constipation. Patient was deemed medically stable and ready for discharge to [facility]. DISCHARGE MEDICATIONS: Please see below. ALLERGIES: Please see below. PHYSICAL EXAMINATION ON DISCHARGE: VITAL SIGNS: Please see below. GENERAL: alert, oriented HEENT: atraumatic, normocephalic NECK: supple CARDIOVASCULAR EXAMINATION: RRR, no murmur rubs or gallops RESPIRATORY EXAMINATION: CTA bilat ABDOMINAL EXAMINATION: soft, nontender, positive bowel sounds EXTREMITIES: no edema SKIN: intact NEUROLOGICAL EXAMINATION: CN 2-12 grossly intact PSYCHIATRIC EXAMINATION: appropriate mood and affect LABORATORY DATA: Please see below. IMAGING: Pelvic US: Normal appearing uterus and ovaries. No adnexal mass or torsion. Recommend continued correlation with quantitative beta HCG values. VTE Prophylaxis ordered?: yes DISCHARGE CONDITION: stable DISPOSITION: dc to [facility] ACTIVITY: as tolerated DIET: regular ITEMS TO FOLLOWUP ON OUTPATIENT: 1. Mild chronically elevated HCG. US negative. Recommend outpatient workup through OB-PROGRAM AIDE. 2. Depression with suicide attempt via seroquel overdose. DISCHARGE PLAN AND INSTRUCTIONS: 1. Discharge to [facility] for inpatient stay following suicide attempt via overdose of seroquel. 2. F/U with OB-PROGRAM AIDE as previously referred for chronically elevated b-HCG. TIME SPENT ON DISCHARGE: Greater than 20 minutes. Vital Signs/I&Os Vital Signs Date Time Temp Pulse Resp B/P Pulse Ox O2 Delivery O2 Flow Rate FiO2 07/27/16 06:00 98.0 85 18 96/57 98 Room Air I&O- Last 24 Hours up to 6 AM 07/27/16 06:00 Intake Total 3532.5 ml Output Total 2400 ml Balance 1132.5 ml Laboratory Data Labs 24H Laboratory Tests 2 07/26/16 17:14: Urine Test NEGATIVE 07/27/16 05:50: Anion Gap 9, Blood Urea Nitrogen 3L, Creatinine 0.44L, Sodium Level 146H, Potassium Level 3.5, Chloride Level 113H, Carbon Dioxide Level 24, Calcium Level 7.7L, Glomerular Filtration Rate > 60.0 CBC/BMP Laboratory Tests 07/27/16 05:50 Calcium Level 7.7 L, Red Blood Count 3.45 L, Mean Corpuscular Volume 94.5, Mean Corpuscular Hemoglobin 32.1, Mean Corpuscular Hemoglobin Concent 34.0, Red Cell Distribution Width 13.7 Medications Scheduled Mirtazapine (Mirtazapine Odt) 15 Mg Tab 15 MG PO QHS Pantoprazole Sodium Sesquihydr (Protonix) 40 Mg Tab 40 MG PO DAILY Risperidone (Risperidone Odt) 0.5 Mg Tab 0.5 MG PO DAILY Scheduled PRN Rizatriptan Benzoate (Maxalt-Area Loss Prevention Manager) 10 Mg Tab 10 MG PO PRN PRN PRN MIGRAINE Allergies Coded Allergies: Codeine (Verified Allergy, Unknown, 10/20/12) Eggs or Egg-derived Products (Verified Allergy, Unknown, Hives, 10/29/14) Penicillins (Verified Allergy, Unknown, 10/20/12) Penicillins Cross Reactors (Verified Allergy, Unknown, 10/20/12) GME ATTESTATION GME ATTESTATION My preceptor for this patient encounter was physically present in the building during the encounter and was fully available. As needed, all aspects of the patient interview, examination, medical decision making process, and medical care plan development were reviewed and approved by the preceptor. Preceptor is aware and concurs with the plan as stated in the body of this note and will attest to such by his/her cosignature. THOMAS ESCALANTE, Jul 27, 2016 08:48
[2016-07-27 14:00] VITALS: BP 105/58
--- NOTE | 2016-07-27 16:56 | CR ---
DATE OF CONSULTATION: 07/27/2016 This is a 45-year-old white female with a history of major depression with recent overdose. Dr. Gamble is her psychiatrist. The patient took an overdose of 20 Risperdal in a suicide attempt. She has been feeling depressed for approximately 1 month now. She denies any precipitating stressors. However, she now reports that she just broke up with her just prior to the overdose. However, she is not wanting to explain the circumstances regarding this. The patient admits that her appetite has been poor recently. She claims her ideal weight is between 97 and 98. Nursing staff report that she is currently at 91 pounds. The patient is agreeable to restarting the Remeron, which she has been prescribed in the past, which hopefully will stimulate her appetite as well as help her mood. MENTAL STATUS EXAMINATION: Patient resting quietly. Affect is subdued. The patient appears moderately to severely depressed with recent suicidal ideation. She appears impulsive. She is not a good historian. Insight and judgment are poor. She denies any psychotic symptoms. No signs of gwendolyn. The patient is a potential danger to herself. DIAGNOSIS: Major depression, recurrent, severe. PLAN: Restart Remeron 30 mg nightly. PCS legal paperwork filled out. Admission transfer to inpatient mental health.
[2016-07-27] MEDS ORDERED: ACETAMINOPHEN TAB 650MG DOSE (2X325MG) PO PRN (18:30)
[2016-07-27] MEDS ORDERED: MOM 30ML SUSPENSION UDC PO PRN (18:30)
[2016-07-27] MEDS ORDERED: MAALOX 30 ML SUSP *UDC PO PRN (18:30)
[2016-07-27] MEDS ORDERED: traZODone 50 MG TAB PO PRN (18:30)
[2016-07-27] MEDS ORDERED: MIRTAZAPINE 15 MG TAB PO SCH (21:00)
--- NOTE | 2016-07-27 23:01 | EDDOCDS ---
Physician Documentation [facility] Name: Gracy Trejo Age: 45 yrs Sex: Female : 1970 Arrival Date: 07/25/2016 Time: 16:35 Bed 4 Private MD: Michael Arreola MD Disposition: 07/25/16 18:53 Hospitalization ordered by Ana Gagnon for Inpatient Admission. Preliminary diagnosis are Poisoning by other antipsychotics and neuroleptics, intentional self-harm, Hypotension. - Bed requested for PCU. - Status is Inpatient Admission. sls1 - Condition is Stable. - Problem is new. - Symptoms are unchanged. Historical: - Allergies: Codeine Sulfate; eggs; PENICILLINS; - Home Meds: 1. Maxalt-CAFETERIA CLERK 10 mg oral TbDL 1 tab as needed for as needed 2. Protonix 40 mg Oral TbEC 1 tab once daily (Last dose: 07/25/2016 08:00) 3. risperidone 0.5 mg oral tab once daily - PMHx: Depression; Migraine Headaches; - PSHx: ; anal fissure; - Social history: Smoking status: Patient uses tobacco products, heavy tobacco smoker. No barriers to communication noted, The patient speaks fluent Syrian, Speaks appropriately for age, Preferred Language: Syrian. - Family history: Not pertinent. - : The pt / caregiver states he / she is not on anticoagulants. Home medication list is obtained from the patient. - Exposure Risk Screening:: None identified. 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 1 hs1 in. (154.94 cm); Pain 0/10; 16:46 BP 94 / 56 (auto/); af2 16:47 Pulse 152 MON; Resp 18 S; Pulse Ox 98% on R/A; af2 16:53 Pulse 148 MON; Pulse Ox 98% ; af2 16:57 Temp 96.9(O); jlf 17:01 BP 94 / 54 (auto/); hs1 17:01 Pulse 144 MON; Pulse Ox 100% ; hs1 17:16 BP 106 / 55 (auto/); hs1 17:16 Pulse 148 MON; Pulse Ox 98% ; hs1 17:31 BP 117 / 66 (auto/); hs1 17:31 Pulse 160 MON; Pulse Ox 99% ; hs1 17:46 BP 95 / 58 (auto/); hs1 17:46 Pulse 136 MON; Pulse Ox 99% ; hs1 20:03 BP 126 / 56 LA; Pulse 140; Resp 18 S; Pulse Ox 96% on R/A; af2 21:54 BP 95 / 56; Pulse 102; Resp 18; Temp 99.3(TE); Pulse Ox 94% on R/A; nn1 16:46 Body Mass Index 16.82 (40.37 kg, 154.94 cm) hs1 MDM: 16:38 Consult PFS/PSA/Product Safety Head ordered. br1 16:38 Consult PFS/PSA/Product Safety Head: Patient's case requires discussion with on-call br1 Psychiatrist ordered. 16:38 PSA/PFS to call Nursing Counseling Center Director, to enter patient data on [place] Safe Act if patient br1 involuntarily admitted or transferred for SI or HI ordered. 16:38 Call Poison Control ordered. br1 16:38 Confirm accurate psychiatric medication list and times of last dosage ordered. br1 16:38 Detain Pt Until Medically/PFS Cleared ordered. br1 16:38 IV Saline Lock ordered. br1 16:38 Ship Painter Helper/Pulse Ox/q 30 min VS ordered. br1 16:39 ECG WITH READING ER PHYS+CARDIAG ordered. EDMS 16:40 Acetaminophen Level Ordered. EDMS 16:40 Basic Metabolic Profile Ordered. EDMS 16:40 Complete Blood Count Ordered. EDMS 16:40 Drug Eval Toxicology ED Only Ordered. EDMS 16:40 Ethyl Alcohol (ethanol) Ordered. EDMS 16:40 Liver Profile Ordered. EDMS 16:40 Salicylate Level Ordered. EDMS 16:40 Thyroid Stimulating Hormone Ordered. EDMS 16:53 NS 0.9% 500 ml IV at bolus once ordered. br1 16:53 NS 0.9% 1000 ml IV at 150 mL/hr continuous ordered. br1 16:53 Oral Temp ordered. br1 16:54 HCG,Serum Qualitative Ordered. EDMS 16:55 Activated Charcoal (1g/kg) Suspension 40 grams PO once ordered. br1 17:07 TROPONIN Ordered. EDMS 17:12 Activated Charcoal (1g/kg) Suspension 40 grams PO once ordered. hs1 17:43 Financial registration complete. gjb 17:47 [facility] Payment Agreement was scanned into [employer] and attached to record. gjb 17:49 NS 0.9% 500 ml IV at bolus once ordered. br1 17:50 Acetaminophen Level Reviewed. br1 17:50 Basic Metabolic Profile Reviewed. br1 17:50 Liver Profile Reviewed. br1 17:50 Salicylate Level Reviewed. br1 17:50 HCG,Serum Qualitative Reviewed. br1 17:50 Complete Blood Count Reviewed. br1 17:50 Ethyl Alcohol (ethanol) Reviewed. br1 17:50 TROPONIN Reviewed. br1 17:52 Hcg, Serum Quantitative Ordered. EDMS 18:38 Acetaminophen Level Reviewed. br1 18:38 Basic Metabolic Profile Reviewed. br1 18:38 Liver Profile Reviewed. br1 18:38 Salicylate Level Reviewed. br1 18:38 Drug Eval Toxicology ED Only Reviewed. br1 18:38 Ethyl Alcohol (ethanol) Reviewed. br1 18:38 Thyroid Stimulating Hormone Reviewed. br1 18:38 TROPONIN Reviewed. br1 18:38 Hcg, Serum Quantitative Reviewed. br1 18:43 BED REQUEST+ADM ordered. EDMS 19:49 NPO DIET ordered. EDMS 19:50 COMPLETE BLOOD COUNT Ordered. EDMS 19:50 BASIC METABOLIC PROFILE Ordered. EDMS 19:51 Admission / Observation Status ordered. EDMS 07/27 08:25 T-Sheet-- Draft Copy was scanned into [employer] and attached to record. gb Administered Medications: 07/25 17:13 Drug: NS 0.9% 500 ml [sodium chloride 0.9 % intravenous solution] Route: IV; Rate: hs1 bolus; Site: left antecubital; 17:13 Drug: Activated Charcoal (1g/kg) 40 grams [activated charcoal 25 gram/120 mL oral hs1 suspension (3840 drps)] Route: PO; 17:55 Drug: NS 0.9% 500 ml [sodium chloride 0.9 % intravenous solution] Route: IV; Rate: hs1 bolus; Site: left antecubital; 18:26 Drug: NS 0.9% 1000 ml [sodium chloride 0.9 % intravenous solution] Route: IV; Rate: 150 hs1 mL/hr; Site: left antecubital; Signatures: Dispatcher [employer] EDMS Linda Velasquez, Reg Reg Jake Rodriguez MD MD br1 No Lomeli RN RN hs1 Virgen Weiss RN RN sls1 Harini Saldana RN RN af2 Shawna Romero The chart was reviewed and I authenticate all verbal orders and agree with the evaluation and treatment provided.Corrections: (The following items were deleted from the chart) 17:07 17:02 TROPONIN+LAB ordered. EDMS EDMS Attachments: 17:47 [facility] Payment Agreement gjmarlene 07/27 08:25 T-Sheet-- Draft Copy gb Chart Complete MTDD
--- NOTE | 2016-07-27 23:02 | EDDOCDS ---
Nurse's Notes [facility] Name: Gracy Trejo Age: 45 yrs Sex: Female : 1970 Arrival Date: 07/25/2016 Time: 16:35 Bed 4 Private MD: Michael Arreola MD Diagnosis: Poisoning by other antipsychotics and neuroleptics, intentional self-harm;Hypotension Presentation: 07/25 16:38 Presenting complaint: EMS states: took approx 20+ risperidone. Pt states has not been hs1 taking regularly and has history of anxiety and depression and decided today to take them. When asked if she wanted to end her life pt responds with "I guess". Pt appears unkempt. Pt openly admits to not wanting to live. Adult Sepsis Screening: The patient does not have new or worsening altered mentation. Patient's respiratory rate is less than 22. Systolic blood pressure is greater than 100. Patient has a qSOFA score of 0- Negative Sepsis Screen. Suicide/Homicide risk assessment- The patient admits to and/or has been reported to be having suicidal ideations. The patient reports that he/she has not been admitted to an inpatient mental health facility in the last 30 days. The patient reports that he/she has a recent or current history of substance abuse. The patient reports that he/she has no prior history of suicide attempt and/or organized plan. The patient reports that he/she has experienced a significant life altering event in the last 30 days. The patient reports that he/she has adequate social support. The patient reports he/she has no significant chronic medical condition(s). Status: Patient is not a sales agent protective service or dependent. Transition of care: patient was not received from another setting of care. 16:38 Acuity: NANCY Level 3 hs1 16:38 Method Of Arrival: Ambulance hs1 Triage Assessment: 16:45 General: Appears in no apparent distress, Behavior is appropriate for age. General: hs1 Appears unkempt. Pain: Denies pain. HIV screening NA for this visit Offered previously. Neurological: Level of Consciousness is awake, alert, obeys commands. Cardiovascular: Capillary refill < 3 seconds. Respiratory: Airway is patent Respiratory effort is even, unlabored, Respiratory pattern is regular, symmetrical, Breath sounds are diminished bilaterally. 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 HOSPITAL TECHNICIAN: 18:27 LMP N/A - pt states menopausal hs1 Historical: - Allergies: Codeine Sulfate; eggs; PENICILLINS; - Home Meds: 1. Maxalt-[employer] ROBOTICIST 10 mg oral TbDL 1 tab as needed for as needed 2. Protonix 40 mg Oral TbEC 1 tab once daily (Last dose: 07/25/2016 08:00) 3. risperidone 0.5 mg oral tab once daily - PMHx: Depression; Migraine Headaches; - PSHx: ; anal fissure; - Social history: Smoking status: Patient uses tobacco products, heavy tobacco smoker. No barriers to communication noted, The patient speaks fluent Angolan, Speaks appropriately for age, Preferred Language: Angolan. - Family history: Not pertinent. - : The pt / caregiver states he / she is not on anticoagulants. Home medication list is obtained from the patient. - Exposure Risk Screening:: None identified. Screenin:53 Screening information is obtained from the patient. Fall risk: No risks identified. hs1 Assistance ADL's: requires no assistance with activities of daily living. Abuse/DV Screen: The patient / caregiver reports he/she is: not in a situation that causes fear, pain or injury. Nutritional screening: No deficits noted. Advance Directives: There is no active DNR order. home support is adequate. Assessment: 17:28 General: Appears in no apparent distress, unkempt, Behavior is cooperative. Pain: hs1 Denies pain. Neurological: Level of Consciousness is awake, alert, obeys commands. Cardiovascular: Rhythm is sinus tachycardia No ectopy. Reports palpitations. Respiratory: Airway is patent Respiratory effort is even, unlabored, Respiratory pattern is regular, symmetrical. Derm: Skin is pink, warm & dry. normal. 18:27 General: Appears in no apparent distress, comfortable, unkempt, Behavior is appropriate hs1 for age, cooperative. Pain: Denies pain. Neurological: Level of Consciousness is awake, alert, obeys commands, Pt asking about going home and patient is aware that she cannot go home at present due to overdosing on medications and telling staff that she had taken them to kill herself. . Cardiovascular: Rhythm is sinus tachycardia No ectopy. Derm: Skin is pink, warm & dry. normal. 19:04 General: Appears in no apparent distress, comfortable, Behavior is anxious, appropriate af2 for age, cooperative, assumed care of pt at this time, rr even and unlabored. pt requests to have cell phone upstairs, updated regarding psych rules. pt states that she's hungry.. Neurological: Level of Consciousness is awake, alert, obeys commands. Cardiovascular: Rhythm is sinus tachycardia No ectopy. Respiratory: Airway is patent Respiratory effort is even, unlabored. Derm: Skin is normal. 19:38 General: Appears unkempt, Behavior is uncooperative, pt removes her own cardiac leads, af2 piv, SpO2 probe, and blood pressure cuff. states to this copywriter "I'm leaving, I don't have to stay here." pt attempts to leave room and leave ER. pt escorted back to room by this copywriter, Dr. Boswell, and Yanick, BUILDING CUSTODIAN. . 19:48 General: Hospitalist notified of pt's outburst and attempt to leave ER. No new orders af2 received. Sitter at bedside.. 20:11 General: per Dr. Hong, poison control was called by day shift nursing staff.. af2 20:25 General: Appears in no apparent distress, comfortable, Behavior is appropriate for age, af2 cooperative, pt sitting upright on stretcher. sitter at bedside. . Neurological: Level of Consciousness is awake, alert, obeys commands. Cardiovascular: Rhythm is sinus tachycardia No ectopy. Respiratory: Airway is patent Respiratory effort is even, unlabored. Derm: Skin is normal. 21:06 General: Appears in no apparent distress, comfortable, Behavior is appropriate for age, af2 cooperative, pt seated on stretcher. rr even and unlabored. . Neurological: Level of Consciousness is awake, alert, obeys commands. Cardiovascular: Rhythm is sinus tachycardia No ectopy. Respiratory: Airway is patent Respiratory effort is even, unlabored. Derm: Skin is normal. 21:55 General: Appears in no apparent distress, comfortable, Behavior is appropriate for age, af2 cooperative. Neurological: Level of Consciousness is awake, alert, obeys commands. Cardiovascular: Rhythm is sinus tachycardia No ectopy. Respiratory: Airway is patent Respiratory effort is even, unlabored. Derm: Skin is pink, warm & dry. normal. Vital Signs: 16:46 BP 94 / 56; Pulse 146; Resp 18; Pulse Ox 98% ; Weight 40.37 kg; Height 5 ft. 1 in. hs1 (154.94 cm); Pain 0/10; 16:46 BP 94 / 56 (auto/); af2 16:47 Pulse 152 MON; Resp 18 S; Pulse Ox 98% on R/A; af2 16:53 Pulse 148 MON; Pulse Ox 98% ; af2 16:57 Temp 96.9(O); jlf 17:01 BP 94 / 54 (auto/); hs1 17:01 Pulse 144 MON; Pulse Ox 100% ; hs1 17:16 BP 106 / 55 (auto/); hs1 17:16 Pulse 148 MON; Pulse Ox 98% ; hs1 17:31 BP 117 / 66 (auto/); hs1 17:31 Pulse 160 MON; Pulse Ox 99% ; hs1 17:46 BP 95 / 58 (auto/); hs1 17:46 Pulse 136 MON; Pulse Ox 99% ; hs1 20:03 BP 126 / 56 LA; Pulse 140; Resp 18 S; Pulse Ox 96% on R/A; af2 21:54 BP 95 / 56; Pulse 102; Resp 18; Temp 99.3(TE); Pulse Ox 94% on R/A; nn1 16:46 Body Mass Index 16.82 (40.37 kg, 154.94 cm) hs1 Vitals: 16:46 Log In Time N/A - ambulance arrival. hs1 ED Course: 16:36 Patient visited by Angelina Pavon, Poiser Balance. lbd 16:36 Michael Arreola is Private Physician. lbd 16:36 Patient moved to Waiting lbd 16:36 Patient moved to 4 lbd 16:37 Jake Hong MD is Attending Physician. br1 16:38 Patient visited by No Lomeli RN. hs1 16:42 Triage Initiated hs1 16:55 Patient visited by Jake Hong MD. br1 16:57 Patient visited by Skip Mejia PCA. jlf 16:57 EKG done. (by ED staff). Reviewed by Jake Hong MD. jlf 16:58 Acetaminophen Level Sent. hs1 16:58 Basic Metabolic Profile Sent. hs1 16:58 Complete Blood Count Sent. hs1 16:58 Ethyl Alcohol (ethanol) Sent. hs1 16:58 Liver Profile Sent. hs1 16:58 Salicylate Level Sent. hs1 16:58 Thyroid Stimulating Hormone Sent. hs1 16:58 HCG,Serum Qualitative Sent. hs1 17:13 TROPONIN Sent. hs1 17:43 Patient visited by Skip Mejia PCA. jlf 17:47 [facility] Payment Agreement was scanned into [employer] and attached to record. gjb 17:50 Patient name changed from Gracy\\S\\\\S\\Neil\\S\\ to Gracy\\S\\ \\S\\Neil. EDMS 17:50 Maintain field IV. Site clean & dry. Gauge & site: 18 gauge in left AC. hs1 17:53 Patient visited by No Lomeli RN. hs1 18:03 Hcg, Serum Quantitative Sent. hs1 18:26 The patient / caregiver is instructed regarding the plan of care and ED course. hs1 18:26 No procedures done that require assistance. hs1 18:29 Patient visited by No Lomeli RN. hs1 18:53 Ana Gagnon is Hospitalizing Provider. br1 19:04 Harini Saldana RN is Primary Nurse. af2 19:07 Patient visited by Harini Saldana RN. af2 19:22 Patient visited by Harini Saldana RN. af2 19:40 Patient visited by Harini Saldana RN. af2 19:53 Patient visited by Harini Saldana RN. af2 20:06 EKG-ADULT Returned. EDMS 20:07 Patient visited by Harini Saldana RN. af2 20:14 Patient visited by Harini Saldana RN. af2 20:17 IV was D/C'd by patient. af2 20:18 Patient visited by Harini Saldana RN. af2 20:18 Inserted saline lock: 20 gauge in left antecubital area The patient tolerated the af2 procedure well. 20:26 Patient visited by Harini Saldana RN. af2 21:07 Patient visited by Harini Saldana RN. af2 21:56 Patient visited by Harini Saldana RN. af2 07/27 08:25 T-Sheet-- Draft Copy was scanned into [employer] and attached to record. gb Administered Medications: 07/25 17:13 Drug: NS 0.9% 500 ml [sodium chloride 0.9 % intravenous solution] Route: IV; Rate: hs1 bolus; Site: left antecubital; 17:13 Drug: Activated Charcoal (1g/kg) 40 grams [activated charcoal 25 gram/120 mL oral hs1 suspension (3840 drps)] Route: PO; 17:55 Drug: NS 0.9% 500 ml [sodium chloride 0.9 % intravenous solution] Route: IV; Rate: hs1 bolus; Site: left antecubital; 18:26 Drug: NS 0.9% 1000 ml [sodium chloride 0.9 % intravenous solution] Route: IV; Rate: 150 hs1 mL/hr; Site: left antecubital; Order Results: Lab Order: Acetaminophen Level; SPEC'M 07/25/16 16:58 Test: ACETAMINOPHEN LEVEL; Value: < 2.0; Range: 10.0-30.0; Abnormal: Below low normal; Units: UG/ML; Status: F Lab Order: Basic Metabolic Profile; SPEC'M 07/25/16 16:58 Test: GLUCOSE, FASTING; Value: 111; Range: 70-105; Abnormal: Above high normal; Units: MG/DL; Status: F Test: BLOOD UREA NITROGEN; Value: 9; Range: 7-18; Units: MG/DL; Status: F Test: CREATININE FOR GFR; Value: 0.62; Range: 0.55-1.02; Units: MG/DL; Status: F Test: GLOMERULAR FILTRATION RATE; Value: > 60.0; Range: >58; Status: F Test: SODIUM LEVEL; Value: 139; Range: 136-145; Units: MEQ/L; Status: F Test: POTASSIUM SERUM; Value: 3.7; Range: 3.5-5.1; Units: MEQ/L; Status: F Test: CHLORIDE LEVEL; Value: 102; Range: 98-107; Units: MEQ/L; Status: F Test: CARBON DIOXIDE LEVEL; Value: 27; Range: 21-32; Units: MEQ/L; Status: F Test: ANION GAP; Value: 10; Range: 8-16; Units: MEQ/L; Status: F Test: CALCIUM LEVEL; Value: 8.8; Range: 8.5-10.1; Units: MG/DL; Status: F Test Note: ; Units are mL/min/1.73 m2 Chronic Kidney Disease Staging per NKF: Stage I & II GFR >=60 Normal to Mildly Decreased Stage III GFR 30-59 Moderately Decreased Stage IV GFR 15-29 Severely Decreased Stage V GFR <15 Very Little GFR Left ESRD GFR <15 on DIGITAL TRAFFIC COORDINATOR Lab Order: Complete Blood Count; SPEC'M 07/25/16 16:58 Test: WHITE BLOOD COUNT; Value: 4.7; Range: 4.0-10.0; Units: K/mm3; Status: F Test: RED BLOOD COUNT; Value: 4.38; Range: 4.00-5.40; Units: M/mm3; Status: F Test: HEMOGLOBIN; Value: 14.0; Range: 12.0-16.0; Units: g/dl; Status: F Test: HEMATOCRIT; Value: 41.0; Range: 36.0-47.0; Units: %; Status: F Test: MEAN CORPUSCULAR VOLUME; Value: 93.4; Range: 80.0-96.0; Units: fl; Status: F Test: MEAN CORPUSCULAR HEMOGLOBIN; Value: 32.0; Range: 27.0-33.0; Units: pg; Status: F Test: MEAN CORPUSCULAR HGB CONC; Value: 34.2; Range: 32.0-36.5; Units: g/dl; Status: F Test: RED CELL DISTRIBUTION WIDTH; Value: 13.7; Range: 11.5-14.5; Units: %; Status: F Test: PLATELET COUNT, AUTOMATED; Value: 287; Range: 150-450; Units: k/mm3; Status: F Lab Order: Drug Eval Toxicology ED Only; SPEC'M 07/25/16 17:30 Test: AMPHETAMINES LEVEL URINE; Value: NEGATIVE; Range: NEGATIVE; Status: F Test: BARBITURATES URINE; Value: NEGATIVE; Range: NEGATIVE; Status: F Test: BENZODIAZEPINES URINE; Value: NEGATIVE; Range: NEGATIVE; Status: F Test: CANNABINOIDS URINE; Value: NEGATIVE; Range: NEGATIVE; Status: F Test: COCAINE METABOLITE URINE; Value: NEGATIVE; Range: NEGATIVE; Status: F Test: METHADONE URINE; Value: NEGATIVE; Range: NEGATIVE; Status: F Test: OPIATES URINE; Value: NEGATIVE; Range: NEGATIVE; Status: F Test: TRICYCLIC ANTIDEPRESS URINE; Value: NEGATIVE; Range: NEGATIVE; Status: F Test Note: ; ALL PRESUMPTIVE POSITIVE FINDINGS ARE UNCONFIRMED NORMAL VALUES THRESHOLD IN NG/ML AMPHETAMINES 1000 METHAMPHETAMINES 1000 BARBITURATES 300 BENZODIAZEPINES 300 CANNABINOIDS (THC) 50 COCAINE METABOLITE 300 METHADONE 300 OPIATES 300 PHENCYCLIDINE 25 TRICYCLIC ANTIDEPRESSANTS 1000 RESULTS ARE FOR MEDICAL PURPOSES ONLY. ALL URINE SPECIMENS WILL BE SAVED FOR 3 DAYS. IF CONFIRMATION OF A PRESUMPTIVE POSTIVE SCREEN RESULT IS DESIRED, CALL CHEMISTRY ([phone]) AND REQUEST URINE TO BE SENT TO REFERENCE LAB. FOR A LIST OF CLOSELY RELATED COMPOUNDS PLEASE CALL THE LAB. Lab Order: Ethyl Alcohol (ethanol); SPEC' 07/25/16 16:58 Test: ETHYL ALCOHOL (ETHANOL); Value: < 0.003; Range: 0.000-0.010; Units: %; Status: F Lab Order: Liver Profile; [facility] 07/25/16 16:58 Test: AST/SGOT; Value: 11; Range: 15-37; Abnormal: Below low normal; Units: U/L; Status: F Test: ALT/SGPT; Value: 12; Range: 12-78; Units: U/L; Status: F Test: ALKALINE PHOSPHATASE; Value: 95; Range: 45-117; Units: U/L; Status: F Test: BILIRUBIN,TOTAL; Value: 0.6; Range: 0.2-1.0; Units: MG/DL; Status: F Test: BILIRUBIN,DIRECT; Value: 0.2; Range: 0.0-0.2; Units: MG/DL; Status: F Test: TOTAL PROTEIN; Value: 7.1; Range: 6.4-8.2; Units: GM/DL; Status: F Test: ALBUMIN; Value: 4.0; Range: 3.2-5.2; Units: GM/DL; Status: F Test: ALBUMIN/GLOBULIN RATIO; Value: 1.29; Range: 1.00-1.93; Status: F Lab Order: Salicylate Level; SPEC' 07/25/16 16:58 Test: SALICYLATE LEVEL; Value: 4.5; Range: 5.0-30.0; Abnormal: Below low normal; Units: MG/DL; Status: F Lab Order: Thyroid Stimulating Hormone; SPEC' 07/25/16 16:58 Test: THYROID STIMULATING HORMONE; Value: 1.170; Range: 0.358-3.740; Units: uIU/ML; Status: F Lab Order: HCG,Serum Qualitative; SPEC'M 07/25/16 16:58 Test: HCG, SERUM QUALITATIVE; Value: POSITIVE; Range: NEGATIVE; Abnormal: Abnormal; Status: F Lab Order: TROPONIN; SPEC'M 07/25/16 16:58 Test: TROPONIN I; Value: < 0.02; Range: < 0.10; Units: NG/ML; Status: F Test Note: ; Troponin I Reference Interval for [employer] LOCI: 99th Percentile= 0.00-0.045 ng/ml Risk Stratification: <= 0.10 ng/ml Decreased Risk for Adverse Clinical Events. 0.10-1.50 ng/ml Increased Risk for Adverse Clinical Events. Evaluation of additional criterion and/or repeat testing in 2-6 hours is suggested to rule out myocardial damage. >= 1.50 ng/ml Indicative of Myocardial Injury. Lab Order: Hcg, Serum Quantitative; SPEC'M 07/25/16 16:57 Test: HCG, SERUM QUANTITATIVE; Value: 8; Units: MIU/ML; Status: F Test Note: ; GESTATIONAL AGE APPROXIMATE HCG RANGE (MIU/ML) 0.2-1 WEEK 5-50 1-2 WEEKS 50-500 2-3 WEEKS 100-5,000 3-4 WEEKS 500-10,000 4-5 WEEKS 1,000-50,000 5-6 WEEKS 10,000-100,000 6-8 WEEKS 15,000-200,000 2-3 MONTHS 10,000-100,000 NON FEMALES LESS THAN 3.0 Patient samples may contain human heterophilic antibodies that could react with immunoassays to give falsely elevated or depressed results. This assay has been designed to minimize interference from heterophilic antibodies. Elevated hCG levels have also been associated with trophoblastic disease and nontrophoblastic neoplasms. The possibility of having these diseases should be considered before a diagnosis of is made. This test is not intended for use as a surrogate marker for aiding in the diagnosis or monitoring the treatment of cancer patients. [employer] methodology. Outcome: 18:53 Decision to Hospitalize by Provider. br1 20:03 Discharge Assessment: Patient awake, alert and oriented x 3. No cognitive and/or af2 functional deficits noted. Patient verbalized understanding of disposition instructions. patient administered narcotics - no. The following High Risk Discharge criteria are identified: Yes, see pfs note. Condition: stable. No special radiology studies were completed. Property :Personal belongings accompany Pt. 21:55 Admission hand-off: Report Faxed Fax receipt verified by JSOE Rogers . nn1 22:00 Patient left the ED. sls1 Signatures: Dispatcher [employer] EDMS Angelina Pavon, Poiser Balance Unit lbd Linda Velasquez, Reg Reg gb Jake Hong MD MD br1 No Lomeli RN RN hs1 Virgen Weiss RN RN sls1 Skip Mejia, BREANA BUILDING CUSTODIAN Harini Moon RN RN af2 Yoel RichterRN RN nn1 Shawna Romero Corrections: (The following items were deleted from the chart) 17:12 17:12 Activated Charcoal (1g/kg) Suspension 40 grams PO hs1 hs1 Chart Complete MTDD
--- NOTE | 2016-07-27 23:02 | EDDOCDS ---
Physician Documentation [facility] Name: Gracy Trejo Age: 45 yrs Sex: Female : 1970 Arrival Date: 07/25/2016 Time: 16:35 Bed 4 Private MD: Michael Arreola MD Disposition: 07/25/16 18:53 Hospitalization ordered by Ana Gagnon for Inpatient Admission. Preliminary diagnosis are Poisoning by other antipsychotics and neuroleptics, intentional self-harm, Hypotension. - Bed requested for PCU. - Status is Inpatient Admission. sls1 - Condition is Stable. - Problem is new. - Symptoms are unchanged. Historical: - Allergies: Codeine Sulfate; eggs; PENICILLINS; - Home Meds: 1. 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 Protonix 40 mg Oral TbEC 1 tab once daily (Last dose: 07/25/2016 08:00) 3. risperidone 0.5 mg oral tab once daily - PMHx: Depression; Migraine Headaches; - PSHx: ; anal fissure; - Social history: Smoking status: Patient uses tobacco products, heavy tobacco smoker. No barriers to communication noted, The patient speaks fluent Kenyan, Speaks appropriately for age, Preferred Language: Kenyan. - Family history: Not pertinent. - : The pt / caregiver states he / she is not on anticoagulants. Home medication list is obtained from the patient. - Exposure Risk Screening:: None identified. SENIOR MATERIALS PLANNER: 07/25 18:27 LMP N/A - pt states menopausal hs1 Vital Signs: 16:46 BP 94 / 56; Pulse 146; Resp 18; Pulse Ox 98% ; Weight 40.37 kg / 89 lbs; Height 5 ft. 1 hs1 in. (154.94 cm); Pain 0/10; 16:46 BP 94 / 56 (auto/); af2 16:47 Pulse 152 MON; Resp 18 S; Pulse Ox 98% on R/A; af2 16:53 Pulse 148 MON; Pulse Ox 98% ; af2 16:57 Temp 96.9(O); jlf 17:01 BP 94 / 54 (auto/); hs1 17:01 Pulse 144 MON; Pulse Ox 100% ; hs1 17:16 BP 106 / 55 (auto/); hs1 17:16 Pulse 148 MON; Pulse Ox 98% ; hs1 17:31 BP 117 / 66 (auto/); hs1 17:31 Pulse 160 MON; Pulse Ox 99% ; hs1 17:46 BP 95 / 58 (auto/); hs1 17:46 Pulse 136 MON; Pulse Ox 99% ; hs1 20:03 BP 126 / 56 LA; Pulse 140; Resp 18 S; Pulse Ox 96% on R/A; af2 21:54 BP 95 / 56; Pulse 102; Resp 18; Temp 99.3(TE); Pulse Ox 94% on R/A; nn1 16:46 Body Mass Index 16.82 (40.37 kg, 154.94 cm) hs1 MDM: 16:38 Consult PFS/PSA/Mechanic Senior ordered. br1 16:38 Consult PFS/PSA/Mechanic Senior: Patient's case requires discussion with on-call br1 Psychiatrist ordered. 16:38 PSA/PFS to call Nursing Parking Enforcement Technician, to enter patient data on [place] Safe Act if patient br1 involuntarily admitted or transferred for SI or HI ordered. 16:38 Call Poison Control ordered. br1 16:38 Confirm accurate psychiatric medication list and times of last dosage ordered. br1 16:38 Detain Pt Until Medically/PFS Cleared ordered. br1 16:38 IV Saline Lock ordered. br1 16:38 Contract Officer/Pulse Ox/q 30 min VS ordered. br1 16:39 ECG WITH READING ER PHYS+CARDIAG ordered. EDMS 16:40 Acetaminophen Level Ordered. EDMS 16:40 Basic Metabolic Profile Ordered. EDMS 16:40 Complete Blood Count Ordered. EDMS 16:40 Drug Eval Toxicology ED Only Ordered. EDMS 16:40 Ethyl Alcohol (ethanol) Ordered. EDMS 16:40 Liver Profile Ordered. EDMS 16:40 Salicylate Level Ordered. EDMS 16:40 Thyroid Stimulating Hormone Ordered. EDMS 16:53 NS 0.9% 500 ml IV at bolus once ordered. br1 16:53 NS 0.9% 1000 ml IV at 150 mL/hr continuous ordered. br1 16:53 Oral Temp ordered. br1 16:54 HCG,Serum Qualitative Ordered. EDMS 16:55 Activated Charcoal (1g/kg) Suspension 40 grams PO once ordered. br1 17:07 TROPONIN Ordered. EDMS 17:12 Activated Charcoal (1g/kg) Suspension 40 grams PO once ordered. hs1 17:43 Financial registration complete. gjb 17:47 [facility] Payment Agreement was scanned into [employer] and attached to record. gjb 17:49 NS 0.9% 500 ml IV at bolus once ordered. br1 17:50 Acetaminophen Level Reviewed. br1 17:50 Basic Metabolic Profile Reviewed. br1 17:50 Liver Profile Reviewed. br1 17:50 Salicylate Level Reviewed. br1 17:50 HCG,Serum Qualitative Reviewed. br1 17:50 Complete Blood Count Reviewed. br1 17:50 Ethyl Alcohol (ethanol) Reviewed. br1 17:50 TROPONIN Reviewed. br1 17:52 Hcg, Serum Quantitative Ordered. EDMS 18:38 Acetaminophen Level Reviewed. br1 18:38 Basic Metabolic Profile Reviewed. br1 18:38 Liver Profile Reviewed. br1 18:38 Salicylate Level Reviewed. br1 18:38 Drug Eval Toxicology ED Only Reviewed. br1 18:38 Ethyl Alcohol (ethanol) Reviewed. br1 18:38 Thyroid Stimulating Hormone Reviewed. br1 18:38 TROPONIN Reviewed. br1 18:38 Hcg, Serum Quantitative Reviewed. br1 18:43 BED REQUEST+ADM ordered. EDMS 19:49 NPO DIET ordered. EDMS 19:50 COMPLETE BLOOD COUNT Ordered. EDMS 19:50 BASIC METABOLIC PROFILE Ordered. EDMS 19:51 Admission / Observation Status ordered. EDMS 07/27 08:25 T-Sheet-- Draft Copy was scanned into [employer] and attached to record. gb Administered Medications: 07/25 17:13 Drug: NS 0.9% 500 ml [sodium chloride 0.9 % intravenous solution] Route: IV; Rate: hs1 bolus; Site: left antecubital; 17:13 Drug: Activated Charcoal (1g/kg) 40 grams [activated charcoal 25 gram/120 mL oral hs1 suspension (3840 drps)] Route: PO; 17:55 Drug: NS 0.9% 500 ml [sodium chloride 0.9 % intravenous solution] Route: IV; Rate: hs1 bolus; Site: left antecubital; 18:26 Drug: NS 0.9% 1000 ml [sodium chloride 0.9 % intravenous solution] Route: IV; Rate: 150 hs1 mL/hr; Site: left antecubital; Signatures: Dispatcher [employer] EDMS Linda Velasquez, Reg Reg Jake Rodriguez MD MD br1 No Lomeli RN RN hs1 Virgen Weiss RN RN sls1 Harini Saldana RN RN af2 Shawna Romero The chart was reviewed and I authenticate all verbal orders and agree with the evaluation and treatment provided.Corrections: (The following items were deleted from the chart) 17:07 17:02 TROPONIN+LAB ordered. EDMS EDMS Attachments: 17:47 [facility] Payment Agreement gjmarlene 07/27 08:25 T-Sheet-- Draft Copy gb Chart Complete MTDD
--- NOTE | 2016-07-29 14:20 | EDDOCDS ---
Physician Documentation [facility] Name: Gracy Trejo Age: 45 yrs Sex: Female : 1970 Arrival Date: 07/25/2016 Time: 16:35 Bed 4 Private MD: Michael Arreola MD Disposition: 07/25/16 18:53 Hospitalization ordered by Ana Gagnon for Inpatient Admission. Preliminary diagnosis are Poisoning by other antipsychotics and neuroleptics, intentional self-harm, Hypotension. - Bed requested for PCU. - Status is Inpatient Admission. sls1 - Condition is Stable. - Problem is new. - Symptoms are unchanged. Historical: - Allergies: Codeine Sulfate; eggs; PENICILLINS; - Home Meds: 1. Maxalt-[employer] 10 mg oral TbDL 1 tab as needed for as needed 2. Protonix 40 mg Oral TbEC 1 tab once daily (Last dose: 07/25/2016 08:00) 3. risperidone 0.5 mg oral tab once daily - PMHx: Depression; Migraine Headaches; - PSHx: ; anal fissure; - Social history: Smoking status: Patient uses tobacco products, heavy tobacco smoker. No barriers to communication noted, The patient speaks fluent Egyptian, Speaks appropriately for age, Preferred Language: Egyptian. - Family history: Not pertinent. - : The pt / caregiver states he / she is not on anticoagulants. Home medication list is obtained from the patient. - Exposure Risk Screening:: None identified. 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 1 hs1 in. (154.94 cm); Pain 0/10; 16:46 BP 94 / 56 (auto/); af2 16:47 Pulse 152 MON; Resp 18 S; Pulse Ox 98% on R/A; af2 16:53 Pulse 148 MON; Pulse Ox 98% ; af2 16:57 Temp 96.9(O); jlf 17:01 BP 94 / 54 (auto/); hs1 17:01 Pulse 144 MON; Pulse Ox 100% ; hs1 17:16 BP 106 / 55 (auto/); hs1 17:16 Pulse 148 MON; Pulse Ox 98% ; hs1 17:31 BP 117 / 66 (auto/); hs1 17:31 Pulse 160 MON; Pulse Ox 99% ; hs1 17:46 BP 95 / 58 (auto/); hs1 17:46 Pulse 136 MON; Pulse Ox 99% ; hs1 20:03 BP 126 / 56 LA; Pulse 140; Resp 18 S; Pulse Ox 96% on R/A; af2 21:54 BP 95 / 56; Pulse 102; Resp 18; Temp 99.3(TE); Pulse Ox 94% on R/A; nn1 16:46 Body Mass Index 16.82 (40.37 kg, 154.94 cm) hs1 MDM: 16:38 Consult PFS/PSA/Technical Support Professional ordered. br1 16:38 Consult PFS/PSA/Technical Support Professional: Patient's case requires discussion with on-call br1 Psychiatrist ordered. 16:38 PSA/PFS to call Nursing [employer] Grade Reading Teacher, to enter patient data on [place] Safe Act if patient br1 involuntarily admitted or transferred for SI or HI ordered. 16:38 Call Poison Control ordered. br1 16:38 Confirm accurate psychiatric medication list and times of last dosage ordered. br1 16:38 Detain Pt Until Medically/PFS Cleared ordered. br1 16:38 IV Saline Lock ordered. br1 16:38 Health Science Specialist/Pulse Ox/q 30 min VS ordered. br1 16:39 ECG WITH READING ER PHYS+CARDIAG ordered. EDMS 16:40 Acetaminophen Level Ordered. EDMS 16:40 Basic Metabolic Profile Ordered. EDMS 16:40 Complete Blood Count Ordered. EDMS 16:40 Drug Eval Toxicology ED Only Ordered. EDMS 16:40 Ethyl Alcohol (ethanol) Ordered. EDMS 16:40 Liver Profile Ordered. EDMS 16:40 Salicylate Level Ordered. EDMS 16:40 Thyroid Stimulating Hormone Ordered. EDMS 16:53 NS 0.9% 500 ml IV at bolus once ordered. br1 16:53 NS 0.9% 1000 ml IV at 150 mL/hr continuous ordered. br1 16:53 Oral Temp ordered. br1 16:54 HCG,Serum Qualitative Ordered. EDMS 16:55 Activated Charcoal (1g/kg) Suspension 40 grams PO once ordered. br1 17:07 TROPONIN Ordered. EDMS 17:12 Activated Charcoal (1g/kg) Suspension 40 grams PO once ordered. hs1 17:43 Financial registration complete. gjb 17:47 [facility] [place] Agreement was scanned into [employer] and attached to record. gjb 17:49 NS 0.9% 500 ml IV at bolus once ordered. br1 17:50 Acetaminophen Level Reviewed. br1 17:50 Basic Metabolic Profile Reviewed. br1 17:50 Liver Profile Reviewed. br1 17:50 Salicylate Level Reviewed. br1 17:50 HCG,Serum Qualitative Reviewed. br1 17:50 Complete Blood Count Reviewed. br1 17:50 Ethyl Alcohol (ethanol) Reviewed. br1 17:50 TROPONIN Reviewed. br1 17:52 Hcg, Serum Quantitative Ordered. EDMS 18:38 Acetaminophen Level Reviewed. br1 18:38 Basic Metabolic Profile Reviewed. br1 18:38 Liver Profile Reviewed. br1 18:38 Salicylate Level Reviewed. br1 18:38 Drug Eval Toxicology ED Only Reviewed. br1 18:38 Ethyl Alcohol (ethanol) Reviewed. br1 18:38 Thyroid Stimulating Hormone Reviewed. br1 18:38 TROPONIN Reviewed. br1 18:38 Hcg, Serum Quantitative Reviewed. br1 18:43 BED REQUEST+ADM ordered. EDMS 19:49 NPO DIET ordered. EDMS 19:50 COMPLETE BLOOD COUNT Ordered. EDMS 19:50 BASIC METABOLIC PROFILE Ordered. EDMS 19:51 Admission / Observation Status ordered. EDMS 07/27 08:25 T-Sheet-- Draft Copy was scanned into [employer] and attached to record. gb Administered Medications: 07/25 17:13 Drug: NS 0.9% 500 ml [sodium chloride 0.9 % intravenous solution] Route: IV; Rate: hs1 bolus; Site: left antecubital; 17:13 Drug: Activated Charcoal (1g/kg) 40 grams [activated charcoal 25 gram/120 mL oral hs1 suspension (3840 drps)] Route: PO; 17:55 Drug: NS 0.9% 500 ml [sodium chloride 0.9 % intravenous solution] Route: IV; Rate: hs1 bolus; Site: left antecubital; 18:26 Drug: NS 0.9% 1000 ml [sodium chloride 0.9 % intravenous solution] Route: IV; Rate: 150 hs1 mL/hr; Site: left antecubital; Signatures: Dispatcher [employer] EDMS Linda Velasquez, Reg Reg Jake Rodriguez MD MD br1 No Lomeli RN RN hs1 Virgen Weiss RN RN sls1 Harini Saldana RN RN af2 Shawna Romero The chart was reviewed and I authenticate all verbal orders and agree with the evaluation and treatment provided.Corrections: (The following items were deleted from the chart) 17:07 17:02 TROPONIN+LAB ordered. EDMS EDMS Attachments: 17:47 [facility] [place] Agreement gjmarlene 07/27 08:25 T-Sheet-- Draft Copy gb Chart Complete MTDD
--- NOTE | 2016-07-29 14:20 | EDDOCDS ---
Nurse's Notes [facility] Name: Gracy Trejo Age: 45 yrs Sex: Female : 1970 Arrival Date: 07/25/2016 Time: 16:35 Bed 4 Private MD: Michael Arreola MD Diagnosis: Poisoning by other antipsychotics and neuroleptics, intentional self-harm;Hypotension Presentation: 07/25 16:38 Presenting complaint: EMS states: took approx 20+ risperidone. Pt states has not been hs1 taking regularly and has history of anxiety and depression and decided today to take them. When asked if she wanted to end her life pt responds with "I guess". Pt appears unkempt. Pt openly admits to not wanting to live. Adult Sepsis Screening: The patient does not have new or worsening altered mentation. Patient's respiratory rate is less than 22. Systolic blood pressure is greater than 100. Patient has a qSOFA score of 0- Negative Sepsis Screen. Suicide/Homicide risk assessment- The patient admits to and/or has been reported to be having suicidal ideations. The patient reports that he/she has not been admitted to an inpatient mental health facility in the last 30 days. The patient reports that he/she has a recent or current history of substance abuse. The patient reports that he/she has no prior history of suicide attempt and/or organized plan. The patient reports that he/she has experienced a significant life altering event in the last 30 days. The patient reports that he/she has adequate social support. The patient reports he/she has no significant chronic medical condition(s). Status: Patient is not a marketing services manager or dependent. Transition of care: patient was not received from another setting of care. 16:38 Acuity: NANCY Level 3 hs1 16:38 Method Of Arrival: Ambulance hs1 Triage Assessment: 16:45 General: Appears in no apparent distress, Behavior is appropriate for age. General: hs1 Appears unkempt. Pain: Denies pain. HIV screening NA for this visit Offered previously. Neurological: Level of Consciousness is awake, alert, obeys commands. Cardiovascular: Capillary refill < 3 seconds. Respiratory: Airway is patent Respiratory effort is even, unlabored, Respiratory pattern is regular, symmetrical, Breath sounds are diminished bilaterally. 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 Maxalt-ELECTRICAL LINE MECHANIC 10 mg oral TbDL 1 tab as needed for as needed 2. Protonix 40 mg Oral TbEC 1 tab once daily (Last dose: 07/25/2016 08:00) 3. risperidone 0.5 mg oral tab once daily - PMHx: Depression; Migraine Headaches; - PSHx: ; anal fissure; - Social history: Smoking status: Patient uses tobacco products, heavy tobacco smoker. No barriers to communication noted, The patient speaks fluent Macanese, Speaks appropriately for age, Preferred Language: Macanese. - Family history: Not pertinent. - : The pt / caregiver states he / she is not on anticoagulants. Home medication list is obtained from the patient. - Exposure Risk Screening:: None identified. Screenin:53 Screening information is obtained from the patient. Fall risk: No risks identified. hs1 Assistance ADL's: requires no assistance with activities of daily living. Abuse/DV Screen: The patient / caregiver reports he/she is: not in a situation that causes fear, pain or injury. Nutritional screening: No deficits noted. Advance Directives: There is no active DNR order. home support is adequate. Assessment: 17:28 General: Appears in no apparent distress, unkempt, Behavior is cooperative. Pain: hs1 Denies pain. Neurological: Level of Consciousness is awake, alert, obeys commands. Cardiovascular: Rhythm is sinus tachycardia No ectopy. Reports palpitations. Respiratory: Airway is patent Respiratory effort is even, unlabored, Respiratory pattern is regular, symmetrical. Derm: Skin is pink, warm & dry. normal. 18:27 General: Appears in no apparent distress, comfortable, unkempt, Behavior is appropriate hs1 for age, cooperative. Pain: Denies pain. Neurological: Level of Consciousness is awake, alert, obeys commands, Pt asking about going home and patient is aware that she cannot go home at present due to overdosing on medications and telling staff that she had taken them to kill herself. . Cardiovascular: Rhythm is sinus tachycardia No ectopy. Derm: Skin is pink, warm & dry. normal. 19:04 General: Appears in no apparent distress, comfortable, Behavior is anxious, appropriate af2 for age, cooperative, assumed care of pt at this time, rr even and unlabored. pt requests to have cell phone upstairs, updated regarding psych rules. pt states that she's hungry.. Neurological: Level of Consciousness is awake, alert, obeys commands. Cardiovascular: Rhythm is sinus tachycardia No ectopy. Respiratory: Airway is patent Respiratory effort is even, unlabored. Derm: Skin is normal. 19:38 General: Appears unkempt, Behavior is uncooperative, pt removes her own cardiac leads, af2 piv, SpO2 probe, and blood pressure cuff. states to this life insurance underwriter "I'm leaving, I don't have to stay here." pt attempts to leave room and leave ER. pt escorted back to room by this life insurance underwriter, Dr. Boswell, and Yanick, REHABILITATION CONSTRUCTION SPECIALIST. . 19:48 General: Hospitalist notified of pt's outburst and attempt to leave ER. No new orders af2 received. Sitter at bedside.. 20:11 General: per Dr. Hong, poison control was called by day shift nursing staff.. af2 20:25 General: Appears in no apparent distress, comfortable, Behavior is appropriate for age, af2 cooperative, pt sitting upright on stretcher. sitter at bedside. . Neurological: Level of Consciousness is awake, alert, obeys commands. Cardiovascular: Rhythm is sinus tachycardia No ectopy. Respiratory: Airway is patent Respiratory effort is even, unlabored. Derm: Skin is normal. 21:06 General: Appears in no apparent distress, comfortable, Behavior is appropriate for age, af2 cooperative, pt seated on stretcher. rr even and unlabored. . Neurological: Level of Consciousness is awake, alert, obeys commands. Cardiovascular: Rhythm is sinus tachycardia No ectopy. Respiratory: Airway is patent Respiratory effort is even, unlabored. Derm: Skin is normal. 21:55 General: Appears in no apparent distress, comfortable, Behavior is appropriate for age, af2 cooperative. Neurological: Level of Consciousness is awake, alert, obeys commands. Cardiovascular: Rhythm is sinus tachycardia No ectopy. Respiratory: Airway is patent Respiratory effort is even, unlabored. Derm: Skin is pink, warm & dry. normal. Vital Signs: 16:46 BP 94 / 56; Pulse 146; Resp 18; Pulse Ox 98% ; Weight 40.37 kg; Height 5 ft. 1 in. hs1 (154.94 cm); Pain 0/10; 16:46 BP 94 / 56 (auto/); af2 16:47 Pulse 152 MON; Resp 18 S; Pulse Ox 98% on R/A; af2 16:53 Pulse 148 MON; Pulse Ox 98% ; af2 16:57 Temp 96.9(O); jlf 17:01 BP 94 / 54 (auto/); hs1 17:01 Pulse 144 MON; Pulse Ox 100% ; hs1 17:16 BP 106 / 55 (auto/); hs1 17:16 Pulse 148 MON; Pulse Ox 98% ; hs1 17:31 BP 117 / 66 (auto/); hs1 17:31 Pulse 160 MON; Pulse Ox 99% ; hs1 17:46 BP 95 / 58 (auto/); hs1 17:46 Pulse 136 MON; Pulse Ox 99% ; hs1 20:03 BP 126 / 56 LA; Pulse 140; Resp 18 S; Pulse Ox 96% on R/A; af2 21:54 BP 95 / 56; Pulse 102; Resp 18; Temp 99.3(TE); Pulse Ox 94% on R/A; nn1 16:46 Body Mass Index 16.82 (40.37 kg, 154.94 cm) hs1 Vitals: 16:46 Log In Time N/A - ambulance arrival. hs1 ED Course: 16:36 Patient visited by Angelina Pavon, Pest Control Worker Helper. lbd 16:36 Michael Arreola is Private Physician. lbd 16:36 Patient moved to Waiting lbd 16:36 Patient moved to 4 lbd 16:37 Jake Hong MD is Attending Physician. br1 16:38 Patient visited by No Lomeli RN. hs1 16:42 Triage Initiated hs1 16:55 Patient visited by Jake Hong MD. br1 16:57 Patient visited by Skip Mejia PCA. jlf 16:57 EKG done. (by ED staff). Reviewed by Jake Hong MD. jlf 16:58 Acetaminophen Level Sent. hs1 16:58 Basic Metabolic Profile Sent. hs1 16:58 Complete Blood Count Sent. hs1 16:58 Ethyl Alcohol (ethanol) Sent. hs1 16:58 Liver Profile Sent. hs1 16:58 Salicylate Level Sent. hs1 16:58 Thyroid Stimulating Hormone Sent. hs1 16:58 HCG,Serum Qualitative Sent. hs1 17:13 TROPONIN Sent. hs1 17:43 Patient visited by Skip Mejia PCA. jlf 17:47 [facility] Payment Agreement was scanned into [employer] and attached to record. gjb 17:50 Patient name changed from Gracy\\S\\\\S\\Neil\\S\\ to Gracy\\S\\ \\S\\Neil. EDMS 17:50 Maintain field IV. Site clean & dry. Gauge & site: 18 gauge in left AC. hs1 17:53 Patient visited by No Lomeli RN. hs1 18:03 Hcg, Serum Quantitative Sent. hs1 18:26 The patient / caregiver is instructed regarding the plan of care and ED course. hs1 18:26 No procedures done that require assistance. hs1 18:29 Patient visited by No Lomeli RN. hs1 18:53 Ana Gagnon is Hospitalizing Provider. br1 19:04 Harini Saldana RN is Primary Nurse. af2 19:07 Patient visited by Harini Saldana RN. af2 19:22 Patient visited by Harini Saldana RN. af2 19:40 Patient visited by Harini Saldana RN. af2 19:53 Patient visited by Harini Saldana RN. af2 20:06 EKG-ADULT Returned. EDMS 20:07 Patient visited by Harini Saldana RN. af2 20:14 Patient visited by Harini Saldana RN. af2 20:17 IV was D/C'd by patient. af2 20:18 Patient visited by Harini Saldana RN. af2 20:18 Inserted saline lock: 20 gauge in left antecubital area The patient tolerated the af2 procedure well. 20:26 Patient visited by Harini Saldana RN. af2 21:07 Patient visited by Harini Saldana RN. af2 21:56 Patient visited by Harini Saldana RN. af2 07/27 08:25 T-Sheet-- Draft Copy was scanned into [employer] and attached to record. gb Administered Medications: 07/25 17:13 Drug: NS 0.9% 500 ml [sodium chloride 0.9 % intravenous solution] Route: IV; Rate: hs1 bolus; Site: left antecubital; 17:13 Drug: Activated Charcoal (1g/kg) 40 grams [activated charcoal 25 gram/120 mL oral hs1 suspension (3840 drps)] Route: PO; 17:55 Drug: NS 0.9% 500 ml [sodium chloride 0.9 % intravenous solution] Route: IV; Rate: hs1 bolus; Site: left antecubital; 18:26 Drug: NS 0.9% 1000 ml [sodium chloride 0.9 % intravenous solution] Route: IV; Rate: 150 hs1 mL/hr; Site: left antecubital; Order Results: Lab Order: Acetaminophen Level; SPEC'M 07/25/16 16:58 Test: ACETAMINOPHEN LEVEL; Value: < 2.0; Range: 10.0-30.0; Abnormal: Below low normal; Units: UG/ML; Status: F Lab Order: Basic Metabolic Profile; SPEC'M 07/25/16 16:58 Test: GLUCOSE, FASTING; Value: 111; Range: 70-105; Abnormal: Above high normal; Units: MG/DL; Status: F Test: BLOOD UREA NITROGEN; Value: 9; Range: 7-18; Units: MG/DL; Status: F Test: CREATININE FOR GFR; Value: 0.62; Range: 0.55-1.02; Units: MG/DL; Status: F Test: GLOMERULAR FILTRATION RATE; Value: > 60.0; Range: >58; Status: F Test: SODIUM LEVEL; Value: 139; Range: 136-145; Units: MEQ/L; Status: F Test: POTASSIUM SERUM; Value: 3.7; Range: 3.5-5.1; Units: MEQ/L; Status: F Test: CHLORIDE LEVEL; Value: 102; Range: 98-107; Units: MEQ/L; Status: F Test: CARBON DIOXIDE LEVEL; Value: 27; Range: 21-32; Units: MEQ/L; Status: F Test: ANION GAP; Value: 10; Range: 8-16; Units: MEQ/L; Status: F Test: CALCIUM LEVEL; Value: 8.8; Range: 8.5-10.1; Units: MG/DL; Status: F Test Note: ; Units are mL/min/1.73 m2 Chronic Kidney Disease Staging per NKF: Stage I & II GFR >=60 Normal to Mildly Decreased Stage III GFR 30-59 Moderately Decreased Stage IV GFR 15-29 Severely Decreased Stage V GFR <15 Very Little GFR Left ESRD GFR <15 on CUPOLA OPERATOR Lab Order: Complete Blood Count; SPEC'M 07/25/16 16:58 Test: WHITE BLOOD COUNT; Value: 4.7; Range: 4.0-10.0; Units: K/mm3; Status: F Test: RED BLOOD COUNT; Value: 4.38; Range: 4.00-5.40; Units: M/mm3; Status: F Test: HEMOGLOBIN; Value: 14.0; Range: 12.0-16.0; Units: g/dl; Status: F Test: HEMATOCRIT; Value: 41.0; Range: 36.0-47.0; Units: %; Status: F Test: MEAN CORPUSCULAR VOLUME; Value: 93.4; Range: 80.0-96.0; Units: fl; Status: F Test: MEAN CORPUSCULAR HEMOGLOBIN; Value: 32.0; Range: 27.0-33.0; Units: pg; Status: F Test: MEAN CORPUSCULAR HGB CONC; Value: 34.2; Range: 32.0-36.5; Units: g/dl; Status: F Test: RED CELL DISTRIBUTION WIDTH; Value: 13.7; Range: 11.5-14.5; Units: %; Status: F Test: PLATELET COUNT, AUTOMATED; Value: 287; Range: 150-450; Units: k/mm3; Status: F Lab Order: Drug Eval Toxicology ED Only; SPEC'M 07/25/16 17:30 Test: AMPHETAMINES LEVEL URINE; Value: NEGATIVE; Range: NEGATIVE; Status: F Test: BARBITURATES URINE; Value: NEGATIVE; Range: NEGATIVE; Status: F Test: BENZODIAZEPINES URINE; Value: NEGATIVE; Range: NEGATIVE; Status: F Test: CANNABINOIDS URINE; Value: NEGATIVE; Range: NEGATIVE; Status: F Test: COCAINE METABOLITE URINE; Value: NEGATIVE; Range: NEGATIVE; Status: F Test: METHADONE URINE; Value: NEGATIVE; Range: NEGATIVE; Status: F Test: OPIATES URINE; Value: NEGATIVE; Range: NEGATIVE; Status: F Test: TRICYCLIC ANTIDEPRESS URINE; Value: NEGATIVE; Range: NEGATIVE; Status: F Test Note: ; ALL PRESUMPTIVE POSITIVE FINDINGS ARE UNCONFIRMED NORMAL VALUES THRESHOLD IN NG/ML AMPHETAMINES 1000 METHAMPHETAMINES 1000 BARBITURATES 300 BENZODIAZEPINES 300 CANNABINOIDS (THC) 50 COCAINE METABOLITE 300 METHADONE 300 OPIATES 300 PHENCYCLIDINE 25 TRICYCLIC ANTIDEPRESSANTS 1000 RESULTS ARE FOR MEDICAL PURPOSES ONLY. ALL URINE SPECIMENS WILL BE SAVED FOR 3 DAYS. IF CONFIRMATION OF A PRESUMPTIVE POSTIVE SCREEN RESULT IS DESIRED, CALL CHEMISTRY ([phone]) AND REQUEST URINE TO BE SENT TO REFERENCE LAB. FOR A LIST OF CLOSELY RELATED COMPOUNDS PLEASE CALL THE LAB. Lab Order: Ethyl Alcohol (ethanol); SPEC' 07/25/16 16:58 Test: ETHYL ALCOHOL (ETHANOL); Value: < 0.003; Range: 0.000-0.010; Units: %; Status: F Lab Order: Liver Profile; [facility] 07/25/16 16:58 Test: AST/SGOT; Value: 11; Range: 15-37; Abnormal: Below low normal; Units: U/L; Status: F Test: ALT/SGPT; Value: 12; Range: 12-78; Units: U/L; Status: F Test: ALKALINE PHOSPHATASE; Value: 95; Range: 45-117; Units: U/L; Status: F Test: BILIRUBIN,TOTAL; Value: 0.6; Range: 0.2-1.0; Units: MG/DL; Status: F Test: BILIRUBIN,DIRECT; Value: 0.2; Range: 0.0-0.2; Units: MG/DL; Status: F Test: TOTAL PROTEIN; Value: 7.1; Range: 6.4-8.2; Units: GM/DL; Status: F Test: ALBUMIN; Value: 4.0; Range: 3.2-5.2; Units: GM/DL; Status: F Test: ALBUMIN/GLOBULIN RATIO; Value: 1.29; Range: 1.00-1.93; Status: F Lab Order: Salicylate Level; SPEC' 07/25/16 16:58 Test: SALICYLATE LEVEL; Value: 4.5; Range: 5.0-30.0; Abnormal: Below low normal; Units: MG/DL; Status: F Lab Order: Thyroid Stimulating Hormone; SPEC' 07/25/16 16:58 Test: THYROID STIMULATING HORMONE; Value: 1.170; Range: 0.358-3.740; Units: uIU/ML; Status: F Lab Order: HCG,Serum Qualitative; SPEC'M 07/25/16 16:58 Test: HCG, SERUM QUALITATIVE; Value: POSITIVE; Range: NEGATIVE; Abnormal: Abnormal; Status: F Lab Order: TROPONIN; SPEC'M 07/25/16 16:58 Test: TROPONIN I; Value: < 0.02; Range: < 0.10; Units: NG/ML; Status: F Test Note: ; Troponin I Reference Interval for [employer] LOCI: 99th Percentile= 0.00-0.045 ng/ml Risk Stratification: <= 0.10 ng/ml Decreased Risk for Adverse Clinical Events. 0.10-1.50 ng/ml Increased Risk for Adverse Clinical Events. Evaluation of additional criterion and/or repeat testing in 2-6 hours is suggested to rule out myocardial damage. >= 1.50 ng/ml Indicative of Myocardial Injury. Lab Order: Hcg, Serum Quantitative; SPEC'M 07/25/16 16:57 Test: HCG, SERUM QUANTITATIVE; Value: 8; Units: MIU/ML; Status: F Test Note: ; GESTATIONAL AGE APPROXIMATE HCG RANGE (MIU/ML) 0.2-1 WEEK 5-50 1-2 WEEKS 50-500 2-3 WEEKS 100-5,000 3-4 WEEKS 500-10,000 4-5 WEEKS 1,000-50,000 5-6 WEEKS 10,000-100,000 6-8 WEEKS 15,000-200,000 2-3 MONTHS 10,000-100,000 NON FEMALES LESS THAN 3.0 Patient samples may contain human heterophilic antibodies that could react with immunoassays to give falsely elevated or depressed results. This assay has been designed to minimize interference from heterophilic antibodies. Elevated hCG levels have also been associated with trophoblastic disease and nontrophoblastic neoplasms. The possibility of having these diseases should be considered before a diagnosis of is made. This test is not intended for use as a surrogate marker for aiding in the diagnosis or monitoring the treatment of cancer patients. [employer] methodology. Outcome: 18:53 Decision to Hospitalize by Provider. br1 20:03 Discharge Assessment: Patient awake, alert and oriented x 3. No cognitive and/or af2 functional deficits noted. Patient verbalized understanding of disposition instructions. patient administered narcotics - no. The following High Risk Discharge criteria are identified: Yes, see pfs note. Condition: stable. No special radiology studies were completed. Property :Personal belongings accompany Pt. 21:55 Admission hand-off: Report Faxed Fax receipt verified by JOSE Rogers . nn1 22:00 Patient left the ED. sls1 Signatures: Dispatcher [employer] EDMS Angelina Pavon, Pest Control Worker Helper Unit lbd Linda Velasquez, Reg Reg gb Jake Hong MD MD br1 No Lomeli RN RN hs1 Virgen Weiss RN RN sls1 Skip Mejia, BREANA REHABILITATION CONSTRUCTION SPECIALIST Harini Moon RN RN af2 Yoel RichterRN RN nn1 Shawna Romero Corrections: (The following items were deleted from the chart) 17:12 17:12 Activated Charcoal (1g/kg) Suspension 40 grams PO hs1 hs1 Chart Complete MTDD
--- NOTE | 2016-07-29 14:20 | EDDOCDS ---
Physician Documentation [facility] Name: Gracy Trejo Age: 45 yrs Sex: Female : 1970 Arrival Date: 07/25/2016 Time: 16:35 Bed 4 Private MD: Michael Arreola MD Disposition: 07/25/16 18:53 Hospitalization ordered by Ana Gagnon for Inpatient Admission. Preliminary diagnosis are Poisoning by other antipsychotics and neuroleptics, intentional self-harm, Hypotension. - Bed requested for PCU. - Status is Inpatient Admission. sls1 - Condition is Stable. - Problem is new. - Symptoms are unchanged. Historical: - Allergies: Codeine Sulfate; eggs; PENICILLINS; - Home Meds: 1. Maxalt-ELEVATOR REPAIRER 10 mg oral TbDL 1 tab as needed for as needed 2. Protonix 40 mg Oral TbEC 1 tab once daily (Last dose: 07/25/2016 08:00) 3. risperidone 0.5 mg oral tab once daily - PMHx: Depression; Migraine Headaches; - PSHx: ; anal fissure; - Social history: Smoking status: Patient uses tobacco products, heavy tobacco smoker. No barriers to communication noted, The patient speaks fluent Gambian, Speaks appropriately for age, Preferred Language: Gambian. - Family history: Not pertinent. - : The pt / caregiver states he / she is not on anticoagulants. Home medication list is obtained from the patient. - Exposure Risk Screening:: None identified. MARKETING DATA SPECIALIST: 07/25 18:27 LMP N/A - pt states menopausal hs1 Vital Signs: 16:46 BP 94 / 56; Pulse 146; Resp 18; Pulse Ox 98% ; Weight 40.37 kg / 89 lbs; Height 5 ft. 1 hs1 in. (154.94 cm); Pain 0/10; 16:46 BP 94 / 56 (auto/); af2 16:47 Pulse 152 MON; Resp 18 S; Pulse Ox 98% on R/A; af2 16:53 Pulse 148 MON; Pulse Ox 98% ; af2 16:57 Temp 96.9(O); jlf 17:01 BP 94 / 54 (auto/); hs1 17:01 Pulse 144 MON; Pulse Ox 100% ; hs1 17:16 BP 106 / 55 (auto/); hs1 17:16 Pulse 148 MON; Pulse Ox 98% ; hs1 17:31 BP 117 / 66 (auto/); hs1 17:31 Pulse 160 MON; Pulse Ox 99% ; hs1 17:46 BP 95 / 58 (auto/); hs1 17:46 Pulse 136 MON; Pulse Ox 99% ; hs1 20:03 BP 126 / 56 LA; Pulse 140; Resp 18 S; Pulse Ox 96% on R/A; af2 21:54 BP 95 / 56; Pulse 102; Resp 18; Temp 99.3(TE); Pulse Ox 94% on R/A; nn1 16:46 Body Mass Index 16.82 (40.37 kg, 154.94 cm) hs1 MDM: 16:38 Consult PFS/PSA/Psychiatric Rn ordered. br1 16:38 Consult PFS/PSA/Psychiatric Rn: Patient's case requires discussion with on-call br1 Psychiatrist ordered. 16:38 PSA/PFS to call Nursing Noxious Weeds And Pest Inspector, to enter patient data on [place] Safe Act if patient br1 involuntarily admitted or transferred for SI or HI ordered. 16:38 Call Poison Control ordered. br1 16:38 Confirm accurate psychiatric medication list and times of last dosage ordered. br1 16:38 Detain Pt Until Medically/PFS Cleared ordered. br1 16:38 IV Saline Lock ordered. br1 16:38 [place]/Pulse Ox/q 30 min VS ordered. br1 16:39 ECG WITH READING ER PHYS+CARDIAG ordered. EDMS 16:40 Acetaminophen Level Ordered. EDMS 16:40 Basic Metabolic Profile Ordered. EDMS 16:40 Complete Blood Count Ordered. EDMS 16:40 Drug Eval Toxicology ED Only Ordered. EDMS 16:40 Ethyl Alcohol (ethanol) Ordered. EDMS 16:40 Liver Profile Ordered. EDMS 16:40 Salicylate Level Ordered. EDMS 16:40 Thyroid Stimulating Hormone Ordered. EDMS 16:53 NS 0.9% 500 ml IV at bolus once ordered. br1 16:53 NS 0.9% 1000 ml IV at 150 mL/hr continuous ordered. br1 16:53 Oral Temp ordered. br1 16:54 HCG,Serum Qualitative Ordered. EDMS 16:55 Activated Charcoal (1g/kg) Suspension 40 grams PO once ordered. br1 17:07 TROPONIN Ordered. EDMS 17:12 Activated Charcoal (1g/kg) Suspension 40 grams PO once ordered. hs1 17:43 Financial registration complete. gjb 17:47 [facility] Payment Agreement was scanned into [employer] and attached to record. gjb 17:49 NS 0.9% 500 ml IV at bolus once ordered. br1 17:50 Acetaminophen Level Reviewed. br1 17:50 Basic Metabolic Profile Reviewed. br1 17:50 Liver Profile Reviewed. br1 17:50 Salicylate Level Reviewed. br1 17:50 HCG,Serum Qualitative Reviewed. br1 17:50 Complete Blood Count Reviewed. br1 17:50 Ethyl Alcohol (ethanol) Reviewed. br1 17:50 TROPONIN Reviewed. br1 17:52 Hcg, Serum Quantitative Ordered. EDMS 18:38 Acetaminophen Level Reviewed. br1 18:38 Basic Metabolic Profile Reviewed. br1 18:38 Liver Profile Reviewed. br1 18:38 Salicylate Level Reviewed. br1 18:38 Drug Eval Toxicology ED Only Reviewed. br1 18:38 Ethyl Alcohol (ethanol) Reviewed. br1 18:38 Thyroid Stimulating Hormone Reviewed. br1 18:38 TROPONIN Reviewed. br1 18:38 Hcg, Serum Quantitative Reviewed. br1 18:43 BED REQUEST+ADM ordered. EDMS 19:49 NPO DIET ordered. EDMS 19:50 COMPLETE BLOOD COUNT Ordered. EDMS 19:50 BASIC METABOLIC PROFILE Ordered. EDMS 19:51 Admission / Observation Status ordered. EDMS 07/27 08:25 T-Sheet-- Draft Copy was scanned into [employer] and attached to record. gb Administered Medications: 07/25 17:13 Drug: NS 0.9% 500 ml [sodium chloride 0.9 % intravenous solution] Route: IV; Rate: hs1 bolus; Site: left antecubital; 17:13 Drug: Activated Charcoal (1g/kg) 40 grams [activated charcoal 25 gram/120 mL oral hs1 suspension (3840 drps)] Route: PO; 17:55 Drug: NS 0.9% 500 ml [sodium chloride 0.9 % intravenous solution] Route: IV; Rate: hs1 bolus; Site: left antecubital; 18:26 Drug: NS 0.9% 1000 ml [sodium chloride 0.9 % intravenous solution] Route: IV; Rate: 150 hs1 mL/hr; Site: left antecubital; Signatures: Dispatcher [employer] EDMS Linda Velasquez, Reg Reg Jake Rodriguez MD MD br1 No Lomeli RN RN hs1 Virgen Weiss RN RN sls1 Harini Saldana RN RN af2 Shawna Romero The chart was reviewed and I authenticate all verbal orders and agree with the evaluation and treatment provided.Corrections: (The following items were deleted from the chart) 17:07 17:02 TROPONIN+LAB ordered. EDMS EDMS Attachments: 17:47 [facility] [place] Payment Agreement gjmarlene 07/27 08:25 T-Sheet-- Draft Copy gb Chart Complete MTDD
== END 2016-07-27 18:50 | DRG 812 ==
LOC: M ED 16:35 → M ED INP 19:22 → M PCU 22:03 → M MSPAV 07-26 17:34
PROVIDERS: ADMIT Internal Medicine; ATTEND Family Medicine
DX: T43.592A Poisoning by other antipsychotics and neuroleptics, intentional self-harm, initial encounter (principal); F32.2 Major depressive disorder, single episode, severe without psychotic features; R63.0 Anorexia; G43.909 Migraine, unspecified, not intractable, without status migrainosus; F17.210 Nicotine dependence, cigarettes, uncomplicated; Z79.899 Other long term (current) drug therapy; Z91.14 Patient's other noncompliance with medication regimen; Y92.019 Unspecified place in single-family (private) house as the place of occurrence of the external cause

== ENCOUNTER 2016-07-27 18:55 | Inpatient (IN) | payer OTHER ==
[~2016-07-27] VITALS: Ht 154.9 cm; Wt 43.2 kg
[2016-07-27 18:55] VITALS: BP 128/73
[~2016-07-27 18:55] MED LIST changes: +PROT1TAB2 PO; +[UNRECOGNIZED DRUG - CODE] PO
[2016-07-27] MEDS ORDERED: MOM 30ML SUSPENSION UDC PO PRN (20:00)
[2016-07-27] MEDS: MIRTAZAPINE 15 MG TAB PO SCH (20:18)
[2016-07-27] MEDS: traZODone 50 MG TAB PO PRN (21:58)
[2016-07-28 06:54] VITALS: BP 98/56
[2016-07-28] MEDS: ACETAMINOPHEN TAB 650MG DOSE (2X325MG) PO PRN (17:07)
[2016-07-28 18:39] VITALS: BP 101/59
[2016-07-28] MEDS: MIRTAZAPINE 15 MG TAB PO SCH (21:46)
[2016-07-28] MEDS: traZODone 50 MG TAB PO PRN (21:46)
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
[2016-07-29 06:35] VITALS: BP 88/52
[2016-07-29 18:47] VITALS: BP 106/60
[2016-07-29] MEDS: NICOTINE 14 MG/24 HR TRANSDERMAL TD SCH (18:49)
[2016-07-29] MEDS: MIRTAZAPINE 15 MG TAB PO SCH (21:30)
[2016-07-29] MEDS: traZODone 50 MG TAB PO PRN (23:01)
--- NOTE | 2016-07-29 23:54 | IPN ---
DATE: 07/29/2016 TREATMENT: Mirtazapine 30 mg orally at bedtime for depression and management of insomnia. Psychotherapeutic intervention including group, individual, and activity therapies. Patient is seen today, her third day of inpatient admission and her treatment reviewed. She is diagnosed with major depressive disorder, recurrent, and was admitted due to ingesting 20 pills of her medication in an intentional overdose attempt. Patient reports that, "I am doing better. My attitude is better. I don' t feel as down. I am sleeping good." There are no new problems reported. She indicates overall satisfaction with treatment and adjusted well to current setting. OBJECTIVE: VITAL SIGNS: Blood pressure 88/52, pulse 73, respirations 18, and temperature 96.8. She is notably less depressed, has been observed to socialize with her peers. Her mood is less depressed. Overall, no evidence of psychotic features. She denies active suicidal thoughts, plan, or intent. ASSESSMENT: Patient is responding to treatment and does not appear to be imminent risk to self or others; however, given that the reason for her admission involved a serious attempt at her life, she will be further assessed to ensure she has maintained treatment stability and unlikely to immediately relapse.. PLAN: Current treatment will be continued and patient reassessed ongoing. LUIS ALBERTO
[2016-07-30 06:23] VITALS: BP 119/75
--- NOTE | 2016-07-30 08:49 | HPE ---
DATE OF ADMISSION: 07/27/2016 HISTORY OF THE PRESENT ILLNESS: Please refer to psychiatric history and evaluation for further details on this admission. This examination and history is intended for medical issues history, which may need treatment, follow-up or consultation of this 45-year-old female who was transferred from the progressive care unit (PCU) after having been stabilized having taken an overdose of risperidone. Primary care provider is Dr. Michael Arreola. ALLERGIES: 1. PENICILLIN. 2. CODEINE. 3. Eggs. HOME MEDICATIONS: - Maxalt 10 mg by mouth as needed for headaches - risperidone 0.5 mg by mouth daily PAST MEDICAL HISTORY: Depression. Migraines headaches. PAST SURGICAL HISTORY: section. Anal fistula repair. SOCIAL HISTORY: The patient smokes one half pack of cigarettes per day. She has a history of alcoholism. She has not drank she states for two weeks. Denies any recreational drug use. REVIEW OF SYSTEMS: 10-systems review was done. The patient had no complaints. PHYSICAL EXAMINATION: 45-year-old cooperative female in no acute distress. Height 61 inches. Weight 42.6 kg. BMI 17.7. Temperature 99. Pulse 79. Respirations 16. Blood pressure 101/59. The patient is alert and oriented times three. Pupils equal and react to light. EOM's are intact. Cornea and sclerae are clear. Conjunctivae are normal. No facial asymmetry. Pharynx, tongue and gums are pink and moist. Tongue is midline. Neck is supple without lymphadenopathy. No thyromegaly. No goiter. Chest clear to auscultation without wheeze or retraction. Heart is regular. Abdomen benign. Bowel sounds are positive. /rectal not done. Extremities show equal strength. Full [id number]. No cyanosis, clubbing or edema. Peripheral pulses are equal and palpable bilaterally. Skin warm and dry. IMPRESSION/PLAN: 1. Psychiatric plan per psychiatry. 2. History of migraines. None clinically. 3. No acute medical issues. Continue followup as an outpatient with primary care provider as needed.
[2016-07-30] MEDS: NICOTINE 14 MG/24 HR TRANSDERMAL TD SCH (09:19)
[2016-07-30 18:39] VITALS: BP 102/60
--- NOTE | 2016-07-30 20:50 | IPNPDOC ---
[facility] Progress Note Progress Note DATE: 07/30/16 HISTORY: This is a 45-year-old woman with past psychiatric history and multiple inpatient hospitalizations, who presented initially to the emergency department and was admitted first to the medical unit due to reportedly ingesting an overdose of tablets. Reportedly, she stated that she was very depressed and felt like she did not want to live any more. She has predominantly been diagnosed with major depressive disorder and has had multiple past suicidal attempts over the years. She says that she has been followed at [facility], that she has not been very compliant with her medications. She previously had been prescribed medications that include Risperdal, Effexor, and Depakote. She is in treatment with Dr. Gamble at the [facility]. She was on 07/26/2016, seen by Dr. Mckay in response to a psychiatric consultation and recommendation by Dr. Mckay was for inpatient mental health observation. Hence, her recent transfer to the inpatient psychiatric unit.. VITAL SIGNS: See below. NEW TEST RESULTS: Significant labs- hCG is positive, will repeat; low values were BUN, creatinine, calcium, AST, B12, vitamin D, RBC, hemoglobin and hematocrit. Highly values to evaluate our sodium chloride LDL T4, and neutrophils. UDS negative CURRENT MEDICATIONS: See below. MENTAL STATUS EXAMINATION: The patient is a 45 yo female who appears much older than correct age, is of small build; notably emaciated. She presents with inadequate grooming, dressed in hospital pajames, unkempt appearance. She is calm, pleasant and cooperative and has a steady gait. She maintains good eye contact. Speech: Her speech is of normal volume, rate, and rhythm. Pt. articulates well , appears to be coherent and spontaneous. Thought processes: Clear and goal-directed about "finding a place to live". Thought content: Rational, logical, no paranoia evident. Abstract reasoning: Adequate Computation: Adequate Associations: Intact, No evidence of patient responding to internal stimuli. Abnormal or psychotic thoughts: Pt. denies Hallucinations, delusions, paranoia, preoccupations, HI/SI. Pt. states she is only obsessed with computer games. Judgement: Fair Insight: Fair Oriented to: Person, place, and surroundings. Recent and remote memory: Patient denies any problems with her memory. Attention span and concentration: Good. Language: Normal. Fund of knowledge: Adequate. Mood: "Good ". Affect: Appropriate, somewhat reactive. DIAGNOSES: Major depressive disorder, recurrent. ASSESSMENT: Patient approached provider and asked if she was to be seen today. Patient reassured. Met with patient to review status. Patient was calm, pleasurable and agreeable, dressed in hospital shirt and scrub pants. Patient states she was feeling "good ". Patient does not feel any changes were needed with her meds. However, when patient asked about her meds, patient states she couldn't give me names as she did not remember them. Patient encouraged to learn about her meds, so that she can discuss them as needed. Patient's main concern "is where I'm going to live ". Patient describes having family in [place] , where she originates from, but also states she does not get along with them. Patient does not want to go back to the [place] area as she fears she would restart using drugs. Patient states she does not drink alcohol and has been clean off drugs for 11 years. Patient states she from on July 24 of this year. Patient feels this is the main reason for her depression and subsequent overdose. He shouldn't feel she is doing better every day. Patient feels that the trazodone is helping her with her sleep. Patient states she wasn't tired today, she had slept 6-8 hours and felt rested this morning. Patient has been noted to be around unit engaging with peers and staff. Patient denies hallucinations, delusions, paranoia, homicidal or suicidal ideation. MANAGEMENT PLAN: She will be admitted and provided with therapeutic setting. She will be continued on her home medications, currently on mirtazapine 30 mg, which she says has been working well for her. She will be provided with individual, group, and activity therapies. Consider repeat HCG, qual and quant to R/O . Vital Signs Vital Sign - Last 24 Hours 07/30/16 07/30/16 06:23 18:39 Temp 97.8 98.6 Pulse 84 87 Resp 20 16 B/P 119/75 102/60 Current Medications Current Medications Acetaminophen (Tylenol) 650 mg Q6HP PRN PO HEADACHE or DISCOMFORT Last administered on 07/28/16t 17:07; Start 07/27/16 at 20:00; Stop 08/26/16 at 19:59 Al Hydrox/Mg Hydrox/Simethicone (Mylanta) 30 ml Q4HP PRN PO HEARTBURN/ INDIGESTION; Start 07/27/16 at 20:00; Stop 08/26/16 at 19:59 Magnesium Hydroxide (Milk Of Magnesia) 30 ml DAILYPRN PRN PO CONSTIPATION; Start 07/27/16 at 20:00; Stop 08/26/16 at 19:59 Mirtazapine (Remeron) 30 mg QHS PO Last administered on 07/29/16 21:30; Start 07/27/16 at 21:00; Stop 08/26/16 at 20:59 Nicotine (Nicoderm Cq 14mg) 1 patch DAILY TD Last administered on 07/30/16 09: 19; Start 07/29/16 at 09:00; Stop 08/28/16 at 08:59 Trazodone HCl (Desyrel) 50 mg QHSP PRN PO INSOMNIA Last administered on 23:01; Start 07/27/16 at 20:00; Stop 08/26/16 at 19:59 Allergies Coded Allergies: Codeine (Verified Allergy, Unknown, 10/20/12) Eggs or Egg-derived Products (Verified Allergy, Unknown, Hives, 05/19/14) Penicillins (Verified Allergy, Unknown, 10/20/12) Penicillins Cross Reactors (Verified Allergy, Unknown, 10/20/12) SUMIT LEACH NP Jul 30, 2016 20:50 NGUYEN ANNA MD Jul 31, 2016 14:24 07/30/16 07/30/16 06:23 18:39 Temp 97.8 98.6 Pulse 84 87 Resp 20 16 B/P 119/75 102/60 Current Medications Current Medications Acetaminophen (Tylenol) 650 mg Q6HP PRN PO HEADACHE or DISCOMFORT Last administered on 07/28/16 17:07; Start 07/27/16 at 20:00; Stop 08/26/16 at 19:59 Al Hydrox/Mg Hydrox/Simethicone (Mylanta) 30 ml Q4HP PRN PO HEARTBURN/ INDIGESTION; Start 07/27/16 at 20:00; Stop 08/26/16 at 19:59 Magnesium Hydroxide (Milk Of Magnesia) 30 ml DAILYPRN PRN PO CONSTIPATION; Start 07/27/16 at 20:00; Stop 08/26/16 at 19:59 Mirtazapine (Remeron) 30 mg QHS PO Last administered on 07/29/16 21:30; Start 07/27/16 at 21:00; Stop 08/26/16 at 20:59 Nicotine (Nicoderm Cq 14mg) 1 patch DAILY TD Last administered on 07/30/16 09: 19; Start 07/29/16 at 09:00; Stop 08/28/16 at 08:59 Trazodone HCl (Desyrel) 50 mg QHSP PRN PO INSOMNIA Last administered on 23:01; Start 07/27/16 at 20:00; Stop 08/26/16 at 19:59 Allergies Coded Allergies: Codeine (Verified Allergy, Unknown, 10/20/12) Eggs or Egg-derived Products (Verified Allergy, Unknown, Hives, 05/19/14) Penicillins (Verified Allergy, Unknown, 10/20/12) Penicillins Cross Reactors (Verified Allergy, Unknown, 10/20/12) SUMIT LEACH NP Jul 30, 2016 20:50 Codeine (Verified Allergy, Unknown, 10/20/12) Eggs or Egg-derived Products (Verified Allergy, Unknown, Hives, 05/19/14) Penicillins (Verified Allergy, Unknown, 10/20/12) Penicillins Cross Reactors (Verified Allergy, Unknown, 10/20/12) SUMIT LEACH NP Jul 30, 2016 20:50
[2016-07-30] MEDS: MIRTAZAPINE 15 MG TAB PO SCH (21:13)
[2016-07-30] MEDS: traZODone 50 MG TAB PO PRN (22:09)
[2016-07-30] MEDS: MAALOX 30 ML SUSP *UDC PO PRN (22:29)
[2016-07-31 06:04] VITALS: BP 82/43
[2016-07-31] MEDS: NICOTINE 14 MG/24 HR TRANSDERMAL TD SCH ×2 (09:00→12:45)
--- NOTE | 2016-07-31 14:10 | IPNPDOC ---
[facility] Progress Note Progress Note DATE: 07/31/16 HISTORY: Patient has history of multiple previous psychiatric hospitalizations, presented initially to the emergency department and was admitted first to the medical unit due to OD on + 20 Risperdal tablets, states she intended to end her life. Per record, patient has history of multiple suicide attempts. Patient is active with [facility] outpatient services and was transferred to inpatient unit post treatment on [facility] floor post OD. Patient states she has been participating in groups and has been visible on unit. Patient indicates she had been living in a hotel noting she was alone in the hotel room and impulsively decided to OD on her medication. Patient notes she had been feeling very depressed due to recently leaving her , having thoughts of wanting to harm him, and was experiencing guilt related to losing her children. Patient indicates she is no longer experiencing anxiety, but notes she experiences intermittent symptoms of depression related to the aforementioned stressors, denies current suicidal or homicidal ideation, denies audiovisual hallucinations , denies urge to engage in self-injurious behavior. Patient expresses uncertainty regarding her ability to safely return to hotel environment, speaks with fiction and nonfiction writer prose today about ensuring that adequate supportive services are in place prior to discharge. Patient reports improved sleep with trazodone and denies nightmares symptoms, indicates she has "poor" appetite, reports reduced energy level and expresses concentration challenges. Patient attributes concentration challenges to a history of being learning disabled and difficulty with processing information. Patient states she recently began taking Remeron, notes she feels medication is helping to improve mood, and currently denies medication side effects. VITAL SIGNS: See below. Patient has history of low blood pressure, is being monitored by PA, is asymptomatic. NEW TEST RESULTS: Significant labs- hCG is positive, PA monitoring. Low values were BUN, creatinine, calcium, RBC, Hgb, Hct, elevated values are sodium and chloride. HCG positive, patient indicates history of positive HCG labs, denies being sexually active for over past year, LMP 4 years ago. Patient informs fiction and nonfiction writer prose she is not . Discharge note from [facility] unit indicates Normal appearing uterus and ovaries. No adnexal mass or torsion. Recommend continued correlation with quantitative beta HCG values. CURRENT MEDICATIONS: See below. MENTAL STATUS EXAMINATION: The patient is a 45 yo female who appears much older than correct age, is of small build; notably emaciated. She presents with inadequate grooming, dressed in hospital clothing, is disheveled with unkempt appearance, is odiferous. Patient is calm, pleasant and cooperative and has a steady gait. She maintains good eye contact. Speech: Her speech is of normal volume, rate, and rhythm. Pt. articulates well , appears to be coherent and spontaneous. Thought processes: Linear, logical, goal-directed Thought content: Rational, logical, no paranoia, obsessions or compulsions noted Abstract reasoning: Adequate, no evidence of patient responding to internal stimuli. Abnormal or psychotic thoughts: Patient denies Hallucinations, delusions, paranoia,preoccupations, HI/SI. Pt. states she is only obsessed with computer games. Judgement: Fair Insight: Fair Oriented to: Person, place, time Recent and remote memory: Limited Attention span and concentration: Fair Language: Normal. Fund of knowledge: Adequate. Mood: "Ok" Affect: Constricted, somewhat reactive. DIAGNOSES: Major depressive disorder, recurrent. ASSESSMENT: Patient appears to be adjusting to inpatient unit, has been visible and attending groups, socializing with select peers. Patient indicates Remeron is working well to improve mood and notes her sleep has been better with trazodone. Patient expresses concerns regarding her discharge plan, states she left her on , notes she intends to return to [facility], notes she has concerns given her recent impulsive decision to overdose on prescribed medication while alone in hotel room. Patient attributes her current symptoms of depression and intermittent anxiety to her recent breakup with her and feelings of guilt and remorse pertaining to past life events. 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 Patient indicates today she is interested in a discharged to [facility] with return to [facility] outpatient supportive services. Patient's hCG is positive, is being monitored by PA, she states she has a history of false positive hCG is , last menstrual period was reportedly 4 years ago, and patient indicates she has not been sexually active for the past year. She informs fiction and nonfiction writer prose she is not , has been made aware of potential risks of psychotropic medication to unborn child, patient verbalizes understanding and states she does not want to stop discontinue psychotropic medications. Patient has notable history of psychiatric admissions and suicide attempts, has experienced recent major life change, and impulsively made serious suicide attempt. Patient, therefore, requires ongoing observation and evaluation at this time to ensure safety, favorable response to medication, and discharge readiness. Patient denies suicidal and homicidal ideation and is currently able to verbalize awareness of how to access supportive services on the unit if needed. Patient has been utilizing trazodone for sleep with good effect and was recently started on Remeron, will continue to monitor patient's response to medication, need for dosing adjustment, and for medication side effects. MANAGEMENT PLAN: Continue Remeron 30 mg by mouth daily at bedtime, trazodone 50 mg at bedtime as needed for sleep Maintain safety precautions Continue to evaluate hCG for or other health conditions which may need to be addressed Patient to attend groups and participate in unit programming to develop coping strategies Engage patient in discharge planning process and arrange meeting with support system to ensure safe discharge planning when appropriate Patient to follow up with PCM upon discharge Vital Signs Vital Signs Date Time Temp Pulse Resp B/P Pulse Ox O2 Delivery O2 Flow Rate FiO2 07/31/16 06:04 98.3 80 20 82/43 07/29/16 11:20 Room Air Current Medications Current Medications Acetaminophen (Tylenol) 650 mg Q6HP PRN PO HEADACHE or DISCOMFORT Last administered on 07/28/16 17:07; Start 07/27/16 at 20:00; Stop 08/26/16 at 19:59 Al Hydrox/Mg Hydrox/Simethicone (Mylanta) 30 ml Q4HP PRN PO HEARTBURN/ INDIGESTION Last administered on 07/30/16 22:29; Start 07/27/16 at 20:00; Stop at 19:59 Magnesium Hydroxide (Milk Of Magnesia) 30 ml DAILYPRN PRN PO CONSTIPATION; Start 07/27/16 at 20:00; Stop 08/26/16 at 19:59 Mirtazapine (Remeron) 30 mg QHS PO Last administered on 07/30/16 21:13; Start 07/27/16 at 21:00; Stop 08/26/16 at 20:59 Nicotine (Nicoderm Cq 14mg) 1 patch DAILY TD Last administered on 07/31/16 12: 45; Start 07/29/16 at 09:00; Stop 08/28/16 at 08:59 Trazodone HCl (Desyrel) 50 mg QHSP PRN PO INSOMNIA Last administered on t 22:09; Start 07/27/16 at 20:00; Stop 08/26/16 at 19:59 Allergies Coded Allergies: Codeine (Verified Allergy, Unknown, 10/20/12) Eggs or Egg-derived Products (Verified Allergy, Unknown, Hives, 05/19/14) Penicillins (Verified Allergy, Unknown, 10/20/12) Penicillins Cross Reactors (Verified Allergy, Unknown, 10/20/12) Valerie Monsalve Jul 31, 2016 14:09
[2016-07-31] MEDS: MAALOX 30 ML SUSP *UDC PO PRN (14:20)
[2016-07-31 18:00] VITALS: BP 100/56
[2016-07-31] MEDS: ACETAMINOPHEN TAB 650MG DOSE (2X325MG) PO PRN (18:03)
[2016-07-31] MEDS: MIRTAZAPINE 15 MG TAB PO SCH (21:29)
[2016-07-31] MEDS: traZODone 50 MG TAB PO PRN (22:27)
[2016-08-01 06:41] VITALS: BP 86/50
[2016-08-01] MEDS: NICOTINE 14 MG/24 HR TRANSDERMAL TD SCH ×2 (09:00→14:21)
[2016-08-01 18:00] VITALS: BP 104/61
[2016-08-01] MEDS: MIRTAZAPINE 15 MG TAB PO SCH (21:28)
--- NOTE | 2016-08-01 22:51 | IPNPDOC ---
[facility] Progress Note Progress Note DATE: 08/01/16 HISTORY: Patient has been visible on unit, attending groups, and engaging selectively with peers. Patient denies suicidal and homicidal ideation, reports improvement to symptoms of anxiety and depression, denies audiovisual hallucinations, and denies urge to engage in self-injurious behavior. Patient states today when ready for discharge she plans to return to hot. Patient unable to verbalize what would be different and returns to [facility] which was location where she recently overdosed on prescribed medication. Patient states she was not using alcohol at the time of her attempted overdose. Patient continues to express uncertainty regarding her ability to safely return to hotel environment, speaks with filing writer again today about ensuring that adequate supportive services are in place prior to discharge. Patient reports improved sleep with trazodone and denies nightmares symptoms, indicates she her appetite remains "not good but normal," reports reduced energy level and expresses concentration challenges. Patient states Remeron continues to be effective in controlling symptoms of anxiety and depression, denies medication side effects. VITAL SIGNS: See below. Patient has history of low blood pressure, is being monitored by PA, is asymptomatic. NEW TEST RESULTS: Significant labs- Low values were BUN, creatinine, calcium, RBC, Hgb, Hct, elevated values are sodium and chloride. patient indicates history of abnormal HCG labs, PA monitoring. Patient denies being sexually active for over past year, LMP 4 years ago, informs filing writer she is not . Discharge note from [facility] unit indicates Normal appearing uterus and ovaries. No adnexal mass or torsion. Recommend continued correlation with quantitative beta HCG values. Patient's hCG is positive, is being monitored by PA, she states she has a history of false positive hCG is, last menstrual period was reportedly 4 years ago, and patient indicates she has not been sexually active for the past year. She informs filing writer she is not , has been made aware of potential risks of psychotropic medication to unborn child, patient verbalizes understanding and states she does not want to stop discontinue psychotropic medications. CURRENT MEDICATIONS: See below. MENTAL STATUS EXAMINATION: The patient is a 45 yo female who appears much older than correct age, is of small build; notably emaciated. She presents with inadequate grooming, dressed in hospital clothing, is disheveled with unkempt appearance, remains malodorous. Patient is calm, pleasant and cooperative and has a steady gait. She maintains good eye contact. Speech: Her speech is of normal volume, rate, and rhythm. Pt. articulates well , appears to be coherent and spontaneous. Thought processes: Linear, logical, goal-directed Thought content: Rational, logical, no paranoia, obsessions or compulsions noted Abstract reasoning: Adequate, no evidence of patient responding to internal stimuli. Abnormal or psychotic thoughts: Patient denies Hallucinations, delusions, paranoia,preoccupations, HI/SI. Pt. states she is only obsessed with computer games. Judgement: Fair Insight: Fair Oriented to: Person, place, time Recent and remote memory: Limited Attention span and concentration: Fair Language: Normal. Fund of knowledge: Adequate. Mood: "Ok" Affect: Constricted, brightens at times DIAGNOSES: Major depressive disorder, recurrent. ASSESSMENT: Patient continues to adjust to unit, is attending groups and is socializing. Patient presents as disheveled, unkempt, and unclean. Patient was encouraged to shower today and informs filing writer "I was on my way to take shower when he came to get me to meet." Rent And Miscellaneous Remittance Clerk spoke today at length with patient regarding her outpatient providers recommendation for inpatient substance abuse treatment. Patient vehemently declines inpatient treatment, indicates she intends to discharge back to [facility] being funded by [facility]. Patient agrees to return to outpatient psychotherapy and medication management. Patient states she remains interested in being discharged to [facility]. Patient has notable history of psychiatric admissions and suicide attempts, has experienced recent major life change, and impulsively made serious suicide attempt. Patient, therefore, requires ongoing observation and evaluation at this time to ensure safety, favorable response to medication, and discharge readiness. Patient denies suicidal and homicidal ideation and is currently able to verbalize awareness of how to access supportive services on the unit if needed. Patient has been utilizing trazodone for sleep with good effect and was recently started on Remeron, will continue to monitor patient's response to medication, need for dosing adjustment, and for medication side effects. MANAGEMENT PLAN: Continue Remeron 30 mg by mouth daily at bedtime, trazodone 50 mg at bedtime as needed for sleep Maintain safety precautions Continue to evaluate hCG for or other health conditions which may need to be addressed Patient to attend groups and participate in unit programming to develop coping strategies Engage patient in discharge planning process and arrange meeting with support system to ensure safe discharge planning when appropriate Patient to follow up with PCM and day haul youth supervisor upon discharge Vital Signs/I&O Vital Signs Date Time Temp Pulse Resp B/P Pulse Ox O2 Delivery O2 Flow Rate FiO2 08/01/16 18:00 98.0 88 18 104/61 07/29/16 11:20 Room Air Current Medications Current Medications Acetaminophen (Tylenol) 650 mg Q6HP PRN PO HEADACHE or DISCOMFORT Last administered on 07/31/16 18:03; Start 07/27/16 at 20:00; Stop 08/26/16 at 19:59 Al Hydrox/Mg Hydrox/Simethicone (Mylanta) 30 ml Q4HP PRN PO HEARTBURN/ INDIGESTION Last administered on 07/31/16 14:20; Start 07/27/16 at 20:00; Stop 08/26/16 at 19:59 Magnesium Hydroxide (Milk Of Magnesia) 30 ml DAILYPRN PRN PO CONSTIPATION; Start 07/27/16 at 20:00; Stop 08/26/16 at 19:59 Mirtazapine (Remeron) 30 mg QHS PO Last administered on 08/01/16 21:28; Start 07/27/16 at 21:00; Stop 08/26/16 at 20:59 Nicotine (Nicoderm Cq 14mg) 1 patch DAILY TD Last administered on 08/01/16 14: 21; Start 07/29/16 at 09:00; Stop 08/28/16 at 08:59 Trazodone HCl (Desyrel) 50 mg QHSP PRN PO INSOMNIA Last administered on 22:27; Start 07/27/16 at 20:00; Stop 08/26/16 at 19:59 Allergies Coded Allergies: Codeine (Verified Allergy, Unknown, 10/20/12) Eggs or Egg-derived Products (Verified Allergy, Unknown, Hives, 05/19/14) Penicillins (Verified Allergy, Unknown, 10/20/12) Penicillins Cross Reactors (Verified Allergy, Unknown, 10/20/12) Valerie Monsalve Aug 01, 2016 22:51
[2016-08-01] MEDS: traZODone 50 MG TAB PO PRN (23:00)
[2016-08-02 06:09] VITALS: BP 107/64
[2016-08-02] MEDS: NICOTINE 14 MG/24 HR TRANSDERMAL TD SCH (08:38)
[2016-08-02] MEDS ORDERED: hydrOXYzine 25 MG TAB PO PRN (12:00)
[2016-08-02] MEDS: MAALOX 30 ML SUSP *UDC PO PRN (13:29)
[2016-08-02 18:00] VITALS: BP 105/55
--- NOTE | 2016-08-02 18:34 | IPNPDOC ---
[facility] Progress Note Progress Note DATE OF SERVICE: 08/02/16 HISTORY: Patient remains visible on unit, has been attending groups and interacting appropriately with staff and peers. Patient reports reduced symptoms of anxiety and depression, denies suicidal and homicidal ideation, visual hallucinations, and denies urge to engage in self-injurious behavior. Patient continues to plan to discharge back to [facility] hotel room, is willing to pursue TLS, and has tentative appointment at [facility] on . Patient is agreeable to participating in IOP program at [facility]. Patient remains unable to verbalize what would be different when returns to [facility] which was location where she recently overdosed on prescribed medication. Patient reiterates she was not using alcohol at the time of her attempted overdose, today is able to verbalize that suicide attempt was impulsive. Patient indicates sleep remains good with trazodone and denies nightmares symptoms, notes her appetite is improving, reports ongoing challenges with energy level and concentration. Patient states Remeron continues to be effective in controlling symptoms of anxiety and depression, denies medication side effects. Patient today makes request for "something for when I get angry or anxious," denies experiencing symptoms on unit and was encouraged to work on improving coping skills in unit programming. VITAL SIGNS: See below. Patient has history of low blood pressure, is being monitored by PA, is asymptomatic. NEW TEST RESULTS: Significant labs- Low values were BUN, creatinine, calcium, RBC, Hgb, Hct, elevated values are sodium and chloride. patient indicates history of abnormal HCG labs, PA monitoring. Patient denies being sexually active for over past year, LMP 4 years ago, informs assembly instructions writer she is not . Discharge note from [facility] unit indicates Normal appearing uterus and ovaries. No adnexal mass or torsion. Recommend continued correlation with quantitative beta HCG values. Patient's hCG is positive, is being monitored by PA, she states she has a history of false positive hCG is, last menstrual period was reportedly 4 years ago, and patient indicates she has not been sexually active for the past year. She informs assembly instructions writer she is not , has been made aware of potential risks of psychotropic medication to unborn child, patient verbalizes understanding and states she does not want to stop discontinue psychotropic medications. CURRENT MEDICATIONS: See below. MENTAL STATUS EXAMINATION: The patient is a 45 yo female who appears much older than correct age, is of small build; appears less emaciated today. She presents with inadequate grooming, dressed in hospital clothing, is disheveled with unkempt appearance, is less malodorous and indicates she showered. Patient is calm, pleasant and cooperative and has a steady gait. She maintains good eye contact. Speech: Her speech is of normal volume, rate, and rhythm. Pt. articulates well , appears to be coherent and spontaneous. Thought processes: Linear, logical, goal-directed Thought content: Rational, logical, no paranoia, obsessions or compulsions noted Abstract reasoning: Adequate, no evidence of patient responding to internal stimuli. Abnormal or psychotic thoughts: Patient denies Hallucinations, delusions, paranoia,preoccupations, HI/SI. Pt. states she is only obsessed with computer games. Judgement: Fair Insight: Fair Oriented to: Person, place, time Recent and remote memory: Limited Attention span and concentration: Fair Language: Normal. Fund of knowledge: Adequate. Mood: "Ok" Affect: Constricted, brightens at times DIAGNOSES: Major depressive disorder, recurrent. ASSESSMENT: Patient continues to adjust to unit, is attending groups and is socializing. Patient remains disheveled and unkempt but has showered Manager Wound and patient spoke again today at length regarding her outpatient providers recommendation for inpatient substance abuse treatment. Patient again declines inpatient treatment, is agreeable to returning to [facility] addictions [facility]. Patient reiterates she intends to discharge back to [facility] being funded by [facility]. Patient agrees to return to outpatient psychotherapy and medication management. Patient states she remains interested in being discharged to [facility]. Patient has notable history of psychiatric admissions and suicide attempts, has experienced recent major life change, and impulsively made serious suicide attempt. Patient, therefore, requires ongoing observation and evaluation at this time to ensure safety, favorable response to medication, and discharge readiness. Patient is currently able to verbalize awareness of how to access supportive services on the unit if needed. Patient has been utilizing trazodone for sleep with good effect and was recently started on Remeron, will continue to monitor patient's response to medication, need for dosing adjustment, and for medication side effects. Patient makes request today for PRN medication in the event that she experiences anxiety or agitation, Rx for hydroxyzine 50 mg po q 6 hours was ordered, will monitor patient's use and medication effectiveness. MANAGEMENT PLAN: Continue Remeron 30 mg by mouth daily at bedtime, trazodone 50 mg at bedtime as needed for sleep. Initiate med trial hydroxyzine 50 mgpo q 6 hours PRN anxiety/agitation. Maintain safety precautions Continue to evaluate hCG for or other health conditions which may need to be addressed Patient to attend groups and participate in unit programming to develop coping strategies Engage patient in discharge planning process and arrange meeting with support system to ensure safe discharge planning when appropriate Patient to follow up with PCM and char filter operator upon discharge Vital Signs/I&O Vital Signs Date Time Temp Pulse Resp B/P Pulse Ox O2 Delivery O2 Flow Rate FiO2 08/02/16 06:09 97.6 95 18 107/64 07/29/16 11:20 Room Air Current Medications Current Medications Acetaminophen (Tylenol) 650 mg Q6HP PRN PO HEADACHE or DISCOMFORT Last administered on 07/31/16 18:03; Start 07/27/16 at 20:00; Stop 08/26/16 at 19:59 Al Hydrox/Mg Hydrox/Simethicone (Mylanta) 30 ml Q4HP PRN PO HEARTBURN/ INDIGESTION Last administered on 08/02/16 13:29; Start 07/27/16 at 20:00; Stop 08/26/16 at 19:59 Hydroxyzine HCl (Vistaril) 50 mg Q6HP PRN PO ANXIETY/AGITATION; Start 08/02/16 at 12:00; Stop 09/01/16 at 11:59 Magnesium Hydroxide (Milk Of Magnesia) 30 ml DAILYPRN PRN PO CONSTIPATION; Start 07/27/16 at 20:00; Stop 08/26/16 at 19:59 Mirtazapine (Remeron) 30 mg QHS PO Last administered on 08/01/16 21:28; Start 07/27/16 at 21:00; Stop 08/26/16 at 20:59 Nicotine (Nicoderm Cq 14mg) 1 patch DAILY TD Last administered on 08/02/16 08: 38; Start 07/29/16 at 09:00; Stop 08/28/16 at 08:59 Trazodone HCl (Desyrel) 50 mg QHSP PRN PO INSOMNIA Last administered on 23:00; Start 07/27/16 at 20:00; Stop 08/26/16 at 19:59 Allergies Coded Allergies: Codeine (Verified Allergy, Unknown, 10/20/12) Eggs or Egg-derived Products (Verified Allergy, Unknown, Hives, 05/19/14) Penicillins (Verified Allergy, Unknown, 10/20/12) Penicillins Cross Reactors (Verified Allergy, Unknown, 10/20/12) Valerie Monsalve Aug 02, 2016 18:34
[2016-08-02] MEDS: MIRTAZAPINE 15 MG TAB PO SCH (21:49)
[2016-08-02] MEDS: traZODone 50 MG TAB PO PRN (22:55)
[2016-08-03 06:14] VITALS: BP 107/61
[2016-08-03] MEDS: NICOTINE 14 MG/24 HR TRANSDERMAL TD SCH (08:31)
[2016-08-03] MEDS ORDERED: hydrOXYzine 50 MG TAB PO PRN (15:08)
[2016-08-03 18:00] VITALS: BP 100/56
--- NOTE | 2016-08-03 18:25 | IPNPDOC ---
[facility] Progress Note Progress Note DATE OF SERVICE: 08/03/16 HISTORY: Patient approached policy writer sales first thing this morning as policy writer sales was entering the unit and requested to meet for check-in purposes. Patient states she has been attending groups, has been visible on unit, has been observed interacting with select peers. Patient reports reduced symptoms of anxiety and depression, denies suicidal and homicidal ideation, denies audiovisual hallucinations, and denies urge to engage in self-injurious behavior. Patient informs policy writer sales she has a meeting scheduled with TLS Saturday and is in agreement with referral to transitional housing. Patient has been informed she has tentative appointment at [facility] on 08/08/16, is agreeable to participating in IOP program at [facility]. Patient is today able to engage in the safety planning process and is able to verbalize what she would do differently to ensure her safety were she to discharge back to the hotel paid for by [facility]. Patient speaks openly today regarding recent Risperdal overdose , indicates she has no medication/other drugs in her home, and denies need or interest in takig med similar to Risperdal or Risperdal. Patient indicates she is aware that in order to remain in the hotel she may not use alcohol or other substances, indicates she has no intention of engaging in substance use or abuse. Patient indicates sleep remains good with trazodone and denies nightmares symptoms, notes her appetite is "much better," reports ongoing challenges with energy level and concentration, but notes some improvement. Patient states Remeron continues to be effective in controlling symptoms of anxiety and depression, denies medication side effects, further denies need for dosing adjustment. Patient states she has had no need for use of PRN medication to address symptoms of anxiety/agitation but notes she is aware medication is available to her should symptoms arise. VITAL SIGNS: See below. Patient has history of low blood pressure, is being monitored by PA, is asymptomatic. NEW TEST RESULTS: Significant labs- Low values were BUN, creatinine, calcium, RBC, Hgb, Hct, elevated values are sodium and chloride. patient indicates history of abnormal HCG labs, PA monitoring. Patient denies being sexually active for over past year, LMP 4 years ago, informs policy writer sales she is not . Discharge note from [facility] unit indicates Normal appearing uterus and ovaries. No adnexal mass or torsion. Recommend continued correlation with quantitative beta HCG values. Patient's hCG is positive, is being monitored by PA, she states she has a history of false positive hCG is, last menstrual period was reportedly 4 years ago, and patient indicates she has not been sexually active for the past year. She informs policy writer sales she is not , has been made aware of potential risks of psychotropic medication to unborn child, patient verbalizes understanding and states she does not want to stop discontinue psychotropic medications. CURRENT MEDICATIONS: See below. MENTAL STATUS EXAMINATION: The patient is a 45 yo female who appears older than stated age, appears less emaciated today. She presents with poor grooming dressed in hospital clothing, is disheveled with unkempt appearance, is less malodorous and indicates she has showered. Patient is calm, pleasant and cooperative and has a steady gait. She maintains good eye contact. Speech: is normal volume, rate, and rhythm, appears to be coherent and spontaneous. Thought processes: Linear, logical, goal-directed Thought content: Rational, logical, no paranoia, obsessions or compulsions noted Abstract reasoning: Adequate, no evidence of patient responding to internal stimuli. Abnormal or psychotic thoughts: Patient denies Hallucinations, delusions, paranoia,preoccupations, HI/SI. Pt. states she is only obsessed with computer games. Judgement: Fair Insight: Fair, some improvement Oriented to: Person, place, time Recent and remote memory: Limited Attention span and concentration: Fair Language: Normal. Fund of knowledge: Adequate. Mood: "Better" Affect: Less constricted, brightens at times DIAGNOSES: Major depressive disorder, recurrent. ASSESSMENT: Patient continues to adjust to unit, is attending groups and is socializing. Patient remains disheveled and unkempt but has showered and, per treatment team, patient is at baseline with personal hygiene. Research Nurse and patient spoke again today about outpatient providers recommendation for inpatient substance abuse treatment, patient again declines. Patient indicates she remains agreeable to returning to [facility] outpatient therapy and addictions IOP and is pursuing TLS case management and housing services. Patient reiterates she intends to discharge back to [facility] being funded by [facility]. Due to patient's history of multiple hospitalizations and suicide attempts patient requires ongoing observation and evaluation at this time to ensure safety, favorable response to medication, and discharge readiness. Patient is currently able to verbalize awareness of how to access supportive services on the unit if needed. Will continue to monitor patient's response to mirtazapine and use of hydroxyzine. Patient currently denies need for mirtazapine dosing adjustment or need for addition of adjunctive medication. Will continue to monitor patient's response to medication, need for dosing adjustment, and for medication side effects. MANAGEMENT PLAN: Continue Remeron 30 mg by mouth daily at bedtime, trazodone 50 mg at bedtime as needed for sleep. Continue hydroxyzine 50 mg po q 6 hours PRN anxiety/agitation. Continue to evaluate need for adjunctive medication. Maintain safety precautions Continue to evaluate hCG for or other health conditions which may need to be addressed Patient to attend groups and participate in unit programming to develop coping strategies Engage patient in discharge planning process and arrange meeting with support system/TLS to ensure safe discharge planning Patient to follow up with PCM and card assembler upon discharge Vital Signs/I&O Vital Signs/I&O Vital Signs Date Time Temp Pulse Resp B/P Pulse Ox O2 Delivery O2 Flow Rate FiO2 08/03/16 06:14 97.0 72 19 107/61 07/29/16 11:20 Room Air Current Medications Current Medications Acetaminophen (Tylenol) 650 mg Q6HP PRN PO HEADACHE or DISCOMFORT Last administered on 07/31/16 18:03; Start 07/27/16 at 20:00; Stop 08/26/16 at 19:59 Al Hydrox/Mg Hydrox/Simethicone (Mylanta) 30 ml Q4HP PRN PO HEARTBURN/ INDIGESTION Last administered on 08/02/16 13:29; Start 07/27/16 at 20:00; Stop 08/26/16 at 19:59 Hydroxyzine HCl (Atarax) 50 mg Q6HP PRN PO ANXIETY/AGITATION; Start 08/03/16 at 15:08; Stop 09/01/16 at 11:59 Hydroxyzine HCl (Vistaril) 50 mg Q6HP PRN PO ANXIETY/AGITATION Last administered on 08/03/16 15:07; Start 08/02/16 at 12:00; Stop 08/03/16 at 15:08 ; Status DC Magnesium Hydroxide (Milk Of Magnesia) 30 ml DAILYPRN PRN PO CONSTIPATION; Start 07/27/16 at 20:00; Stop 08/26/16 at 19:59 Mirtazapine (Remeron) 30 mg QHS PO Last administered on 08/02/16 21:49; Start 07/27/16 at 21:00; Stop 08/26/16 at 20:59 Nicotine (Nicoderm Cq 14mg) 1 patch DAILY TD Last administered on 08/03/16 08: 31; Start 07/29/16 at 09:00; Stop 08/28/16 at 08:59 Trazodone HCl (Desyrel) 50 mg QHSP PRN PO INSOMNIA Last administered on 22:55; Start 07/27/16 at 20:00; Stop 08/26/16 at 19:59 Allergies Coded Allergies: Codeine (Verified Allergy, Unknown, 10/20/12) Eggs or Egg-derived Products (Verified Allergy, Unknown, Hives, 05/19/14) Penicillins (Verified Allergy, Unknown, 10/20/12) Penicillins Cross Reactors (Verified Allergy, Unknown, 10/20/12) Valerie Monsalve Aug 03, 2016 18:25
[2016-08-03] MEDS: MAALOX 30 ML SUSP *UDC PO PRN (21:26)
[2016-08-03] MEDS: MIRTAZAPINE 15 MG TAB PO SCH (21:26)
[2016-08-03] MEDS: traZODone 50 MG TAB PO PRN (23:38)
[2016-08-04 06:17] VITALS: BP 90/52
[2016-08-04] MEDS: NICOTINE 14 MG/24 HR TRANSDERMAL TD SCH (08:27)
[2016-08-04 18:00] VITALS: BP 100/63
[2016-08-04] MEDS: MIRTAZAPINE 15 MG TAB PO SCH (22:41)
[2016-08-04] MEDS: traZODone 50 MG TAB PO PRN (23:25)
[2016-08-05 06:26] VITALS: BP 106/59
[2016-08-05] MEDS: NICOTINE 14 MG/24 HR TRANSDERMAL TD SCH (08:25)
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
[2016-08-05 18:00] VITALS: BP 113/61
[2016-08-05] MEDS: MIRTAZAPINE 15 MG TAB PO SCH (21:38)
[2016-08-05] MEDS: ACETAMINOPHEN TAB 650MG DOSE (2X325MG) PO PRN (21:38)
[2016-08-05] MEDS: traZODone 50 MG TAB PO PRN (22:09)
[2016-08-06 06:00] VITALS: BP 112/70
[2016-08-06] MEDS: NICOTINE 14 MG/24 HR TRANSDERMAL TD SCH (08:37)
[2016-08-06 18:00] VITALS: BP 107/67
--- NOTE | 2016-08-06 19:08 | IPNPDOC ---
[facility] Progress Note Progress Note DATE OF SERVICE: 08/06/16 HISTORY: Pockets And Pieces Necktie Operator met with patient to assess treatment progress on inpatient unit. Patient states she has been attending groups, has been visible on unit, has been observed interacting with select peers. Patient denies symptoms of anxiety and depression, denies suicidal and homicidal ideation, denies audiovisual hallucinations, and denies urge to engage in self-injurious behavior. Patient informs technical writer she has a meeting scheduled with TLS later today and remains in agreement with referral to transitional housing. Patient has been informed she has appointment at [facility] on 08/08/16, is agreeable to participating in IOP program at [facility]. Patient is able to effectively engage in the safety planning process and is able to verbalize what she would do differently to ensure her safety were she to discharge back to the hotel paid for by [facility], reiterates today that all medication has been removed from her room. Patient again denies need or interest in taking medication similar to Risperdal or Risperdal. Patient indicates she is aware that in order to remain in the hotel she may not use alcohol or other substances, indicates she has no intention of engaging in substance use or abuse. Patient indicates sleep remains restorative with trazodone and denies nightmares symptoms. Patient states her appetite remains improved, denies challenges with energy level or concentration. Patient states Remeron continues to be effective in controlling symptoms of anxiety and depression, denies medication side effects or need for dosing adjustment. Patient utilized hydroxyzine 50 mg 1 on 08/05/15 to address symptoms of increasing anxiety/agitation with good effect reported, notes she feels hydroxyzine will be adequate medication to be used as needed after discharge should symptoms of anxiety/agitation arise. VITAL SIGNS: See below. Patient has history of low blood pressure, is being monitored by PA, is asymptomatic. NEW TEST RESULTS: Significant labs- Low values were BUN, creatinine, calcium, RBC, Hgb, Hct, elevated values are sodium and chloride. patient indicates history of abnormal HCG labs, PA monitoring. Patient denies being sexually active for over past year, LMP 4 years ago, informs technical writer she is not . Discharge note from [facility] unit indicates Normal appearing uterus and ovaries. No adnexal mass or torsion. Recommend continued correlation with quantitative beta HCG values. Patient's hCG is positive, is being monitored by PA, she states she has a history of false positive hCG is, last menstrual period was reportedly 4 years ago, and patient indicates she has not been sexually active for the past year. She informs technical writer she is not , has been made aware of potential risks of psychotropic medication to unborn child, patient verbalizes understanding and states she does not want to stop discontinue psychotropic medications. CURRENT MEDICATIONS: See below. MENTAL STATUS EXAMINATION: The patient is a 45 yo female who appears older than stated age, appears less emaciated today. She presents with poor grooming dressed in hospital clothing, is disheveled with unkempt appearance, is not odiferous and states she has showered. Patient is calm, pleasant and cooperative and has a steady gait. She maintains good eye contact. Speech: is normal volume, rate, and rhythm, appears to be coherent and spontaneous. Thought processes: Linear, logical, goal-directed Thought content: Rational, logical, no paranoia, obsessions or compulsions noted Abstract reasoning: Adequate, no evidence of patient responding to internal stimuli. Abnormal or psychotic thoughts: Patient denies Hallucinations, delusions, paranoia,preoccupations, HI/SI. Pt. states she is only obsessed with computer games. Judgement: Fair, some improvement Insight: Fair, some improvement Oriented to: Person, place, time Recent and remote memory: Limited Attention span and concentration: Fair Language: Normal. Fund of knowledge: Adequate. Mood: "Much better; I feel good." Affect: Full range, brightens frequently and appropriately DIAGNOSES: Major depressive disorder, recurrent, severe without psychotic symptoms, Alcohol use disorder, severe ASSESSMENT: Patient has adjusted well to unit, has been attending groups, sociable, visible in milieu. Patient remains disheveled and unkempt but has showered and, per treatment team, patient is at baseline with personal hygiene. P[employer] Pie[employer] Necktie Operator and patient spoke again today about outpatient provider's and this provider's recommendation for inpatient substance abuse treatment, patient again declines. Patient reiterates today she intends to discharge back to [facility] being funded by [facility]. Patient indicates she remains agreeable to returning to [facility] IOP and is pursuing TLS case management and housing services. Patient will also be working with a manager case , will continue to see her psychiatrist and psychotherapist through [facility]. Patient denies suicidal and homicidal ideation and is able to effectively engage in safety planning process and verbalizes awareness of how to access support on unit if needed. Will continue to monitor patient's response to mirtazapine and use of PRN hydroxyzine. Patient currently denies need for mirtazapine dosing adjustment or need for addition of adjunctive medication. MANAGEMENT PLAN: Continue Remeron 30 mg by mouth daily at bedtime, trazodone 50 mg at bedtime as needed for sleep. Continue hydroxyzine 50 mg po q 6 hours PRN anxiety/agitation. Continue to evaluate need for adjunctive medication. Maintain safety precautions Continue to evaluate hCG for or other health conditions which may need to be addressed Patient to attend groups and participate in unit programming to develop coping strategies Engage patient in discharge planning process and arrange meeting with support system/TLS to ensure safe discharge planning Patient to follow up with PCM and airport operations duty manager upon discharge Vital Signs/I&O Vital Signs Date Time Temp Pulse Resp B/P Pulse Ox O2 Delivery O2 Flow Rate FiO2 08/06/16 18:00 98.4 101 16 107/67 Current Medications Current Medications Acetaminophen (Tylenol) 650 mg Q6HP PRN PO HEADACHE or DISCOMFORT Last administered on 08/05/16 21:38; Start 07/27/16 at 20:00; Stop 08/26/16 at 19:59 Al Hydrox/Mg Hydrox/Simethicone (Mylanta) 30 ml Q4HP PRN PO HEARTBURN/ INDIGESTION Last administered on 08/03/16 21:26; Start 07/27/16 at 20:00; Stop 08/26/16 at 19:59 Hydroxyzine HCl (Atarax) 50 mg Q6HP PRN PO ANXIETY/AGITATION Last administered on 08/05/16 11:44; Start 08/03/16 at 15:08; Stop 09/01/16 at 11:59 Hydroxyzine HCl (Vistaril) 50 mg Q6HP PRN PO ANXIETY/AGITATION Last administered on 08/03/16 15:07; Start 08/02/16 at 12:00; Stop 08/03/16 at 15:08 ; Status DC Magnesium Hydroxide (Milk Of Magnesia) 30 ml DAILYPRN PRN PO CONSTIPATION Last administered on 08/06/16 15:14; Start 1/6/17 at 20:00; Stop 08/26/16 at 19:59 Mirtazapine (Remeron) 30 mg QHS PO Last administered on 08/05/16 21:38; Start 07/27/16 at 21:00; Stop 08/26/16 at 20:59 Nicotine (Nicoderm Cq 14mg) 1 patch DAILY TD Last administered on 08/06/16 08: 37; Start 07/29/16 at 09:00; Stop 08/28/16 at 08:59 Trazodone HCl (Desyrel) 50 mg QHSP PRN PO INSOMNIA Last administered on 22:09; Start 07/27/16 at 20:00; Stop 08/26/16 at 19:59 Allergies Coded Allergies: Codeine (Verified Allergy, Unknown, 10/20/12) Eggs or Egg-derived Products (Verified Allergy, Unknown, Hives, 05/19/14) Penicillins (Verified Allergy, Unknown, 10/20/12) Penicillins Cross Reactors (Verified Allergy, Unknown, 10/20/12) Valerie Monsalve Aug 06, 2016 19:08
[2016-08-06] MEDS: MIRTAZAPINE 15 MG TAB PO SCH (21:32)
[2016-08-06] MEDS: traZODone 50 MG TAB PO PRN (22:40)
[2016-08-07 06:38] VITALS: BP 92/57
[2016-08-07] MEDS: NICOTINE 14 MG/24 HR TRANSDERMAL TD SCH (08:07)
[2016-08-07] MEDS ORDERED: NICO14PA TD (08:10)
[2016-08-07] MEDS ORDERED: MIRT15TA3 PO (09:04)
[2016-08-07] MEDS ORDERED: TRAZO50TA PO (09:04)
[2016-08-07] MEDS ORDERED: HYDRO50TAB PO (09:04)
[2016-08-07 09:43] VITALS: BP 104/56
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
== END 2016-08-07 10:10 | disposition home or self-care (01) | DRG 751 ==
LOC: M PSY 18:55
PROVIDERS: ADMIT Psychiatry & Neurology Psychiatry; ATTEND Psychiatry & Neurology Psychiatry
DX: F33.2 Major depressive disorder, recurrent severe without psychotic features (principal); E41 Nutritional marasmus; F14.20 Cocaine dependence, uncomplicated; F17.210 Nicotine dependence, cigarettes, uncomplicated; Z62.810 Personal history of physical and sexual abuse in childhood; Z63.32 Other absence of family member; F10.20 Alcohol dependence, uncomplicated; Z91.5 Personal history of self-harm; G43.909 Migraine, unspecified, not intractable, without status migrainosus; Z68.1 Body mass index [BMI] 19.9 or less, adult; Z79.899 Other long term (current) drug therapy; Z88.0 Allergy status to penicillin; Z88.6 Allergy status to analgesic agent; Z91.012 Allergy to eggs

== ENCOUNTER → 2016-08-21 | Outpatient (RCR) | payer MEDICAID ==
[~2016-08-21] MED LIST changes: +HYDRO50TAB PO; +MIRT15TA3 PO; +NICO14PA TD; +TRAZO50TA PO
== END | disposition home or self-care (01) ==
LOC: M OUTALCOH 08-08 15:42
PROVIDERS: ATTEND Psychiatry & Neurology Psychiatry
DX: F10.20 Alcohol dependence, uncomplicated (principal); F17.200 Nicotine dependence, unspecified, uncomplicated

== ENCOUNTER 2016-09-10 00:01 | Emergency (ER) | payer MEDICAID, OTHER ==
[2016-09-10] MEDS ORDERED: KETOROLAC 30 MG/ML VIAL (J1885) As Ordered ONE (03:48)
--- NOTE | 2016-09-10 04:10 | EDDOCDS ---
Nurse's Notes [facility] Name: Gracy Trejo Age: 46 yrs Sex: Female : 1970 Arrival Date: 09/10/2016 Time: 00:01 Bed I1 / M1 Private MD: Diagnosis: Migraine without aura, not intractable Presentation: 09/10 00:16 Presenting complaint: Patient states: migraine, has history migraines but is out of sls1 medication, unknown what medication but dissolves under tongue, reports headache started this morning but went away and came back. This patient has no additional risk factors. Adult Sepsis Screening: The patient does not have new or worsening altered mentation. Patient's respiratory rate is less than 22. Systolic blood pressure is greater than 100. Patient has a qSOFA score of 0- Negative Sepsis Screen. Suicide/Homicide risk assessment- the patient denies having any suicidal and/or homicidal ideations and does not present with any other emotional, behavioral or mental health complaints. Status: Patient is not a service parts driver or dependent. Transition of care: patient was not received from another setting of care. 00:16 Acuity: NANCY Level 4 sls1 00:16 Method Of Arrival: Walkin/Carried/Asstd sls1 Triage Assessment: 00:18 Headache History: This patient has a history of headaches and the character of this sls1 headache is like all previous headaches. General: Appears in no apparent distress. Pain: Location: headache Pain currently is 10 out of 10 on a pain scale. Pain began 1 day ago Also complains of no other associated symptoms. Pt Declines HIV testing. Neurological: Level of Consciousness is awake, alert. Respiratory: No deficits noted. Historical: - Allergies: Codeine Sulfate; eggs; PENICILLINS; - Home Meds: 1. Maxalt-FEED INSPECTION SUPERVISOR 10 mg oral TbDL 1 tab as needed for as needed 2. Protonix 40 mg Oral TbEC 1 tab once daily 3. risperidone 0.5 mg oral tab once daily - PMHx: Depression; Migraine Headaches; - PSHx: anal fissure; ; - Social history: Smoking status: Patient uses tobacco products, current every day smoker. No barriers to communication noted, The patient speaks fluent Jordanian, Speaks appropriately for age. - Family history: Not pertinent. - : The pt / caregiver states he / she is not on anticoagulants. Home medication list is obtained from the patient. - Exposure Risk Screening:: None identified. Screenin:39 Screening information is obtained from the patient. Fall risk: No risks identified. [facility] Assistance ADL's: requires no assistance with activities of daily living. Abuse/DV Screen: The patient / caregiver reports he/she is: not in a situation that causes fear, pain or injury. Nutritional screening: No deficits noted. Advance Directives: Further advance directive information is declined. home support is adequate. Assessment: 02:19 General: Appears in no apparent distress, Behavior is appropriate for age, cooperative, [facility] Pt notified RN that she was going outside to smoke, no apparent distress. 03:39 General: Appears in no apparent distress. Neurological: Level of Consciousness is [facility] awake, alert, Oriented to person, place, time, Moves all extremities. Gait is steady, Speech is normal. Respiratory: No deficits noted. Derm: No deficits noted. 04:06 Pain: Location: head Pain currently is 7 out of 10 on a pain scale. Neurological: Level af2 of Consciousness is awake, alert, Oriented to person, place, time. Respiratory: Airway is patent Respiratory effort is even, unlabored. Derm: Skin is normal. Vital Signs: 00:18 BP 102 / 61; Pulse 84; Resp 18; Temp 98.3(T); Pulse Ox 99% on R/A; Weight 49.9 kg; [facility] Height 5 ft. 1 in. (154.94 cm); Pain 10/10; 04:08 BP 102 / 56; Pulse 80; Resp 18 S; Temp 97.1(O); Pulse Ox 99% on R/A; af2 00:18 Body Mass Index 20.78 (49.90 kg, 154.94 cm) [facility] Vitals: 00:18 Log In Time: September 10, 2016 at 00:03. [facility] ED Course: 00:03 Patient visited by Gregg Oconnor. jp5 00:03 Patient moved to Waiting jp5 00:17 Triage Initiated [facility] 00:34 Patient moved to MTA Wait [facility] 00:55 Patient moved to Waiting jul 01:24 [facility] Payment Agreement was scanned into [employer] and attached to record. gjb 01:31 Patient name changed from Gracy\S\\S\Neil\S\ to Gracy\S\ \S\Neil. EDMS 03:18 Patient moved to I1 / M1 ml3 03:39 Patient visited by Virgen Weiss RN. sls1 03:39 The patient / caregiver is instructed regarding the plan of care and ED course. Patient sls1 has correct armband on for positive identification. Bed in low position. 03:49 Francis Mulligan DO is Attending Physician. mm11 03:49 Patient visited by Francis Mulligan DO. mm11 03:54 Patient visited by Harini Saldana RN. af2 03:59 Patient visited by Francis Mulligan DO. mm11 03:59 Michael Arreola MD is Referral Physician. mm11 04:06 No IV's were initiated during this patient's visit. No procedures done that require af2 assistance. Administered Medications: 03:53 Drug: ketorolac 60 mg [ketorolac 30 mg/mL (1 mL) injection solution (2 mL)] Route: IM; af2 Site: right gluteus; Order Results: There are currently no results for this order. Outcome: 03:59 Discharge ordered by Provider. mm11 04:09 Patient left the ED. af2 Signatures: Dispatcher [employer] EDMS Jayda Joyce RN RN jan Lopresti, Mary-Elizabeth, Behavioral Health Tech Unit [facility] Francis Mulligan DO DO mm11 Virgen Weiss, JOSE RN sls1 Harini Saldana RN RN af2 Gregg Oconnor Gabriela gjb MTDD
--- NOTE | 2016-09-10 04:10 | EDDOCDS ---
Physician Documentation [facility] Name: Gracy Trejo Age: 46 yrs Sex: Female : 1970 Arrival Date: 09/10/2016 Time: 00:01 Bed I1 / M1 Private MD: Disposition: 09/10/16 03:59 Discharged to Home/Self Care. Impression: Migraine without aura, not intractable. - Condition is Stable. - Discharge Instructions: Migraine Headache. - Medication Reconciliation, Local Pharmacy Hours form. - Follow up: Michael Arreola MD; When: As needed; Reason: Continuance of care. - Problem is an acute exacerbation. - Symptoms have improved. Historical: - Allergies: Codeine Sulfate; eggs; PENICILLINS; - Home Meds: 1. Maxalt-NET DEVELOPER CONSULTANT 10 mg oral TbDL 1 tab as needed for as needed 2. Protonix 40 mg Oral TbEC 1 tab once daily 3. risperidone 0.5 mg oral tab once daily - PMHx: Depression; Migraine Headaches; - PSHx: anal fissure; ; - Social history: Smoking status: Patient uses tobacco products, current every day smoker. No barriers to communication noted, The patient speaks fluent Lao, Speaks appropriately for age. - Family history: Not pertinent. - : The pt / caregiver states he / she is not on anticoagulants. Home medication list is obtained from the patient. - Exposure Risk Screening:: None identified. Vital Signs: 09/10 00:18 BP 102 / 61; Pulse 84; Resp 18; Temp 98.3(T); Pulse Ox 99% on R/A; Weight 49.9 kg / sls1 110.01 lbs; Height 5 ft. 1 in. (154.94 cm); Pain 10/10; 04:08 BP 102 / 56; Pulse 80; Resp 18 S; Temp 97.1(O); Pulse Ox 99% on R/A; af2 00:18 Body Mass Index 20.78 (49.90 kg, 154.94 cm) sls1 MDM: 01:24 [facility] Payment Agreement was scanned into [email or web address] and attached to record. sixto 03:46 ketorolac 60 mg IM once ordered. jul 04:04 Financial registration complete. gjb Administered Medications: 03:53 Drug: ketorolac 60 mg [ketorolac 30 mg/mL (1 mL) injection solution (2 mL)] Route: IM; af2 Site: right gluteus; Signatures: Jayda Joyce RN RN Francis Hernandez DO DO mm11 Virgen Weiss RN RN sls1 Harini Saldana RN RN af2 Shawna Romero The chart was reviewed and I authenticate all verbal orders and agree with the evaluation and treatment provided.Attachments: 01:24 [facility] Payment Agreement sixto MTDD
--- NOTE | 2016-09-12 05:10 | EDDOCDS ---
Nurse's Notes [facility] Name: Gracy Trejo Age: 46 yrs Sex: Female : 1970 Arrival Date: 09/10/2016 Time: 00:01 Bed I1 / M1 Private MD: Diagnosis: Migraine without aura, not intractable Presentation: 09/10 00:16 Presenting complaint: Patient states: migraine, has history migraines but is out of sls1 medication, unknown what medication but dissolves under tongue, reports headache started this morning but went away and came back. This patient has no additional risk factors. Adult Sepsis Screening: The patient does not have new or worsening altered mentation. Patient's respiratory rate is less than 22. Systolic blood pressure is greater than 100. Patient has a qSOFA score of 0- Negative Sepsis Screen. Suicide/Homicide risk assessment- the patient denies having any suicidal and/or homicidal ideations and does not present with any other emotional, behavioral or mental health complaints. Status: Patient is not a rehabilitation services aide or dependent. Transition of care: patient was not received from another setting of care. 00:16 Acuity: NANCY Level 4 sls1 00:16 Method Of Arrival: Walkin/Carried/Asstd sls1 Triage Assessment: 00:18 Headache History: This patient has a history of headaches and the character of this sls1 headache is like all previous headaches. General: Appears in no apparent distress. Pain: Location: headache Pain currently is 10 out of 10 on a pain scale. Pain began 1 day ago Also complains of no other associated symptoms. Pt Declines HIV testing. Neurological: Level of Consciousness is awake, alert. Respiratory: No deficits noted. Historical: - Allergies: Codeine Sulfate; eggs; PENICILLINS; - Home Meds: 1. Maxalt-BUSINESS APPLICATIONS DEVELOPER 10 mg oral TbDL 1 tab as needed for as needed 2. Protonix 40 mg Oral TbEC 1 tab once daily 3. risperidone 0.5 mg oral tab once daily - PMHx: Depression; Migraine Headaches; - PSHx: anal fissure; ; - Social history: Smoking status: Patient uses tobacco products, current every day smoker. No barriers to communication noted, The patient speaks fluent Kittitian, Speaks appropriately for age. - Family history: Not pertinent. - : The pt / caregiver states he / she is not on anticoagulants. Home medication list is obtained from the patient. - Exposure Risk Screening:: None identified. Screenin:39 Screening information is obtained from the patient. Fall risk: No risks identified. [facility] Assistance ADL's: requires no assistance with activities of daily living. Abuse/DV Screen: The patient / caregiver reports he/she is: not in a situation that causes fear, pain or injury. Nutritional screening: No deficits noted. Advance Directives: Further advance directive information is declined. home support is adequate. Assessment: 02:19 General: Appears in no apparent distress, Behavior is appropriate for age, cooperative, [facility] Pt notified RN that she was going outside to smoke, no apparent distress. 03:39 General: Appears in no apparent distress. Neurological: Level of Consciousness is [facility] awake, alert, Oriented to person, place, time, Moves all extremities. Gait is steady, Speech is normal. Respiratory: No deficits noted. Derm: No deficits noted. 04:06 Pain: Location: head Pain currently is 7 out of 10 on a pain scale. Neurological: Level af2 of Consciousness is awake, alert, Oriented to person, place, time. Respiratory: Airway is patent Respiratory effort is even, unlabored. Derm: Skin is normal. Vital Signs: 00:18 BP 102 / 61; Pulse 84; Resp 18; Temp 98.3(T); Pulse Ox 99% on R/A; Weight 49.9 kg; [facility] Height 5 ft. 1 in. (154.94 cm); Pain 10/10; 04:08 BP 102 / 56; Pulse 80; Resp 18 S; Temp 97.1(O); Pulse Ox 99% on R/A; af2 00:18 Body Mass Index 20.78 (49.90 kg, 154.94 cm) [facility] Vitals: 00:18 Log In Time: September 10, 2016 at 00:03. [facility] ED Course: 00:03 Patient visited by Gregg Oconnor. jp5 00:03 Patient moved to Waiting jp5 00:17 Triage Initiated [facility] 00:34 Patient moved to MTA Wait [facility] 00:55 Patient moved to Waiting jul 01:24 [facility] Payment Agreement was scanned into [employer] and attached to record. gjb 01:31 Patient name changed from Gracy\S\\S\Neil\S\ to Gracy\S\ \S\Neil. EDMS 03:18 Patient moved to I1 / M1 ml3 03:39 Patient visited by Virgen Weiss RN. sls1 03:39 The patient / caregiver is instructed regarding the plan of care and ED course. Patient sls1 has correct armband on for positive identification. Bed in low position. 03:49 Francis Mulligan DO is Attending Physician. mm11 03:49 Patient visited by Francis Mulligan DO. mm11 03:54 Patient visited by Harini Saldana RN. af2 03:59 Patient visited by Francis Mulligan DO. mm11 03:59 Michael Arreola MD is Referral Physician. mm11 04:06 No IV's were initiated during this patient's visit. No procedures done that require af2 assistance. 14:45 T-Sheet-- Draft Copy was scanned into [employer] and attached to record. gb Administered Medications: 03:53 Drug: ketorolac 60 mg [ketorolac 30 mg/mL (1 mL) injection solution (2 mL)] Route: IM; af2 Site: right gluteus; Order Results: There are currently no results for this order. Outcome: 03:59 Discharge ordered by Provider. mm11 04:09 Patient left the ED. af2 Signatures: Dispatcher [employer] EDMS Jayda Joyce RN RN jan Barnhardt, Gloria, Sophy [place], [employer] Vault Clerk Unit ml3 Francis Mulligan DO DO mm11 Virgen Weiss RN RN sls1 Harini Saldana,JOSE RN 2 Gregg Oconnor Gabriela gjb Chart Complete MTDD
--- NOTE | 2016-09-12 05:10 | EDDOCDS ---
Physician Documentation [facility] Name: Gracy Trejo Age: 46 yrs Sex: Female : 1970 Arrival Date: 09/10/2016 Time: 00:01 Bed I1 / M1 Private MD: Disposition: 09/10/16 03:59 Discharged to Home/Self Care. Impression: Migraine without aura, not intractable. - Condition is Stable. - Discharge Instructions: Migraine Headache. - Medication Reconciliation, Local Pharmacy Hours form. - Follow up: Michael Arreola MD; When: As needed; Reason: Continuance of care. - Problem is an acute exacerbation. - Symptoms have improved. Historical: - Allergies: Codeine Sulfate; eggs; PENICILLINS; - Home Meds: 1. Maxalt-RN COMPLEX CARE 10 mg oral TbDL 1 tab as needed for as needed 2. Protonix 40 mg Oral TbEC 1 tab once daily 3. risperidone 0.5 mg oral tab once daily - PMHx: Depression; Migraine Headaches; - PSHx: anal fissure; ; - Social history: Smoking status: Patient uses tobacco products, current every day smoker. No barriers to communication noted, The patient speaks fluent Yakut, Speaks appropriately for age. - Family history: Not pertinent. - : The pt / caregiver states he / she is not on anticoagulants. Home medication list is obtained from the patient. - Exposure Risk Screening:: None identified. Vital Signs: 09/10 00:18 BP 102 / 61; Pulse 84; Resp 18; Temp 98.3(T); Pulse Ox 99% on R/A; Weight 49.9 kg / sls1 110.01 lbs; Height 5 ft. 1 in. (154.94 cm); Pain 10/10; 04:08 BP 102 / 56; Pulse 80; Resp 18 S; Temp 97.1(O); Pulse Ox 99% on R/A; af2 00:18 Body Mass Index 20.78 (49.90 kg, 154.94 cm) sls1 MDM: 01:24 [facility] Payment Agreement was scanned into [employer] and attached to record. gjb 03:46 ketorolac 60 mg IM once ordered. jul 04:04 Financial registration complete. gjb 14:45 T-Sheet-- Draft Copy was scanned into [employer] and attached to record. gb Administered Medications: 03:53 Drug: ketorolac 60 mg [ketorolac 30 mg/mL (1 mL) injection solution (2 mL)] Route: IM; af2 Site: right gluteus; Signatures: Jayda Joyce RN RN Linda Magana, Reg Reg gb Francis Mulligan, DO mm11 Virgen Weiss RN RN sls1 Harini Saldana RN RN af2 Shawna Romero The chart was reviewed and I authenticate all verbal orders and agree with the evaluation and treatment provided.Attachments: 01:24 [facility] Payment Agreement sixto 14:45 T-Sheet-- Draft Copy Chart Complete MTDD
--- NOTE | 2016-09-12 05:10 | EDDOCDS ---
Physician Documentation [facility] Name: Gracy Trejo Age: 46 yrs Sex: Female : 1970 Arrival Date: 09/10/2016 Time: 00:01 Bed I1 / M1 Private MD: Disposition: 09/10/16 03:59 Discharged to Home/Self Care. Impression: Migraine without aura, not intractable. - Condition is Stable. - Discharge Instructions: Migraine Headache. - Medication Reconciliation, Local Pharmacy Hours form. - Follow up: Michael Arreola MD; When: As needed; Reason: Continuance of care. - Problem is an acute exacerbation. - Symptoms have improved. Historical: - Allergies: Codeine Sulfate; eggs; PENICILLINS; - Home Meds: 1. Maxalt-HEALTH SERVICES INFORMATION SPECIALIST 10 mg oral TbDL 1 tab as needed for as needed 2. Protonix 40 mg Oral TbEC 1 tab once daily 3. risperidone 0.5 mg oral tab once daily - PMHx: Depression; Migraine Headaches; - PSHx: anal fissure; ; - Social history: Smoking status: Patient uses tobacco products, current every day smoker. No barriers to communication noted, The patient speaks fluent Hungarian, Speaks appropriately for age. - Family history: Not pertinent. - : The pt / caregiver states he / she is not on anticoagulants. Home medication list is obtained from the patient. - Exposure Risk Screening:: None identified. Vital Signs: 09/10 00:18 BP 102 / 61; Pulse 84; Resp 18; Temp 98.3(T); Pulse Ox 99% on R/A; Weight 49.9 kg / sls1 110.01 lbs; Height 5 ft. 1 in. (154.94 cm); Pain 10/10; 04:08 BP 102 / 56; Pulse 80; Resp 18 S; Temp 97.1(O); Pulse Ox 99% on R/A; af2 00:18 Body Mass Index 20.78 (49.90 kg, 154.94 cm) sls1 MDM: 01:24 [facility] Payment Agreement was scanned into [employer] and attached to record. gjb 03:46 ketorolac 60 mg IM once ordered. jul 04:04 Financial registration complete. gjb 14:45 T-Sheet-- Draft Copy was scanned into [employer] and attached to record. gb Administered Medications: 03:53 Drug: ketorolac 60 mg [ketorolac 30 mg/mL (1 mL) injection solution (2 mL)] Route: IM; af2 Site: right gluteus; Signatures: Jayda Joyce RN RN Linda Magana, Reg Reg gb Francis Mulligan, DO mm11 Virgen Weiss RN RN sls1 Harini Saldana RN RN af2 Shawna Romero The chart was reviewed and I authenticate all verbal orders and agree with the evaluation and treatment provided.Attachments: 01:24 [facility] Payment Agreement sixto 14:45 T-Sheet-- Draft Copy Chart Complete MTDD
== END 2016-09-10 04:09 | disposition home or self-care (01) ==
LOC: M ED 00:01
DX: G43.909 Migraine, unspecified, not intractable, without status migrainosus (principal); F32.9 Major depressive disorder, single episode, unspecified; Z72.0 Tobacco use; Z79.899 Other long term (current) drug therapy; Z88.2 Allergy status to sulfonamides; Z88.0 Allergy status to penicillin; Z91.012 Allergy to eggs
CPT/HCPCS: 96372; 99283; J1885

== ENCOUNTER → 2016-09-18 | Outpatient (RCR) | payer MEDICAID | LOC: M OUTALCOH 08-23 09:54 | PROVIDERS: ATTEND Psychiatry & Neurology Psychiatry | DX: F10.20 Alcohol dependence, uncomplicated (principal); F17.200 Nicotine dependence, unspecified, uncomplicated ==

== ENCOUNTER 2016-09-28 06:40 | Emergency (ER) | payer MEDICAID, OTHER ==
[~2016-09-28] VITALS: Ht 154.9 cm; Wt 43.1 kg
[2016-09-28] MEDS ORDERED: KETOROLAC 30 MG/ML VIAL (J1885) IM ONE (07:30)
[2016-09-28] MEDS ORDERED: IBUP600T26 PO (08:26)
[2016-09-28 08:30] VITALS: BP 103/53
== END 2016-09-28 08:31 | disposition home or self-care (01) ==
LOC: M ED 07:43
DX: G44.209 Tension-type headache, unspecified, not intractable (principal); F17.200 Nicotine dependence, unspecified, uncomplicated; F32.9 Major depressive disorder, single episode, unspecified; Z79.899 Other long term (current) drug therapy; Z88.5 Allergy status to narcotic agent; Z88.0 Allergy status to penicillin; Z91.012 Allergy to eggs
CPT/HCPCS: 96372; 99282; J1885

== ENCOUNTER 2016-10-13 22:52 | Emergency (ER) | payer MEDICAID, OTHER ==
[~2016-10-13] VITALS: Ht 154.9 cm; Wt 41.3 kg
[~2016-10-13 22:52] MED LIST changes: +IBUP600T26 PO
[2016-10-14] MEDS ORDERED: KETOROLAC 30 MG/ML VIAL (J1885) As Ordered ONE (06:22)
[2016-10-14] MEDS ORDERED: KETOROLAC 60 MG/2 ML VIAL (J1885) IM ONE (06:30)
[2016-10-14 06:44] VITALS: BP 103/71
[2016-10-21] MEDS ORDERED: TRAZ50TA4 PO (00:48)
== END 2016-10-14 06:45 | disposition home or self-care (01) ==
LOC: M ED 10-14 00:08
DX: G43.909 Migraine, unspecified, not intractable, without status migrainosus (principal); Z88.0 Allergy status to penicillin; Z88.5 Allergy status to narcotic agent; Z91.012 Allergy to eggs; Z79.899 Other long term (current) drug therapy
CPT/HCPCS: 96372; 99282; J1885

== ENCOUNTER 2016-10-18 08:00 | Outpatient (RCR) | payer MEDICAID ==
[2016-10-21] MEDS ORDERED: TRAZ50TA4 PO (00:48)
== END 2016-10-19 ==
LOC: M OUTALCOH 08:00
PROVIDERS: ATTEND Psychiatry & Neurology Psychiatry
DX: F10.20 Alcohol dependence, uncomplicated (principal); F17.200 Nicotine dependence, unspecified, uncomplicated

== ENCOUNTER → 2016-10-19 | Outpatient (REF) | payer OTHER ==
[~2016-10-19] MED LIST changes: +MIRT30TA3; +RISP0.5T16; +TRAZ50TA4; +ZOFR4TAB3 PO
[2016-10-19 18:18] LABS: ALBUMIN 4.1 GM/DL (3.2-5.2); ALBUMIN/GLOBULIN RATIO 1.41 (1.00-1.93); ALKALINE PHOSPHATASE 92 U/L (45-117); ALT/SGPT 15 U/L (12-78); ANION GAP 7 MEQ/L (8-16); AST/SGOT 8 U/L (15-37); BILIRUBIN,TOTAL 0.3 MG/DL (0.2-1.0); BLOOD UREA NITROGEN 9 MG/DL (7-18); CALCIUM LEVEL 8.7 MG/DL (8.5-10.1); CARBON DIOXIDE LEVEL 30 MEQ/L (21-32); CHLORIDE LEVEL 104 MEQ/L (98-107); CREATININE FOR GFR 0.66 MG/DL (0.55-1.02); GLOMERULAR FILTRATION RATE > 60.0 (>58); GLUCOSE, FASTING 132 MG/DL (70-105); POTASSIUM SERUM 3.9 MEQ/L (3.5-5.1); SODIUM LEVEL 141 MEQ/L (136-145)
== END ==
LOC: M SFHCPLAZ 16:01
PROVIDERS: ATTEND Nurse Practitioner Family
DX: F50.2 Bulimia nervosa (principal)

== ENCOUNTER 2016-10-24 09:56 | Emergency (ER) | payer OTHER, SELFPAY ==
[~2016-10-24] VITALS: Ht 154.9 cm; Wt 39.9 kg
[~2016-10-24 09:56] MED LIST changes: -MIRT30TA3; -RISP0.5T16; -TRAZ50TA4; -ZOFR4TAB3 PO
[2016-10-24] MEDS ORDERED: RISP0.5T16 (10:07)
[2016-10-24] MEDS ORDERED: TRAZ50TA4 (10:07)
[2016-10-24] MEDS ORDERED: MIRT30TA3 (10:07)
[2016-10-24] MEDS ORDERED: ACETAMINOPHEN TAB 650MG DOSE (2X325MG) PO ONE (10:30)
[2016-10-24] MEDS ORDERED: KETOROLAC 30 MG/ML VIAL (J1885) IV ONE (10:30)
[2016-10-24] MEDS ORDERED: METOCLOPRAMIDE INJ 10MG/2ML VIAL (J2765) IV ONE (10:45)
[2016-10-24] MEDS ORDERED: ZOFR4TAB3 PO (11:21)
[2016-10-24 11:49] VITALS: BP 101/59
== END 2016-10-24 11:50 | disposition home or self-care (01) ==
LOC: M ED 10:42
DX: G43.909 Migraine, unspecified, not intractable, without status migrainosus (principal); F17.200 Nicotine dependence, unspecified, uncomplicated; Z88.0 Allergy status to penicillin; Z88.5 Allergy status to narcotic agent; Z91.012 Allergy to eggs; Z79.899 Other long term (current) drug therapy
CPT/HCPCS: 96374; 96375; 99282; J1885; J2765

== ENCOUNTER 2016-11-01 22:20 | Emergency (ER) | payer MEDICAID ==
[~2016-11-01] VITALS: Ht 154.9 cm; Wt 40.4 kg
[~2016-11-01 22:20] MED LIST changes: +MIRT30TA3; +RISP0.5T16; +TRAZ50TA4; +ZOFR4TAB3 PO
[2016-11-02] MEDS ORDERED: diphenhydrAMINE INJ 50MG/ML VIAL (J1200) IV STA (04:44)
[2016-11-02] MEDS ORDERED: METOCLOPRAMIDE INJ 10MG/2ML VIAL (J2765) IV ONE (04:45)
[2016-11-02] MEDS ORDERED: KETOROLAC 30 MG/ML VIAL (J1885) IV ONE (04:45)
[2016-11-02 05:55] VITALS: BP 112/58
== END 2016-11-02 05:58 | disposition home or self-care (01) ==
LOC: M ED 23:45
DX: G43.009 Migraine without aura, not intractable, without status migrainosus (principal); F32.9 Major depressive disorder, single episode, unspecified; F17.200 Nicotine dependence, unspecified, uncomplicated; Z88.0 Allergy status to penicillin; Z88.5 Allergy status to narcotic agent; Z91.012 Allergy to eggs; Z79.899 Other long term (current) drug therapy
CPT/HCPCS: 96374; 96375; 99283; J1200; J1885; J2765

== ENCOUNTER 2016-11-15 09:00 | Outpatient (RCR) | payer MEDICAID | END 2016-11-18 | LOC: M OUTALCOH 09:00 | PROVIDERS: ATTEND Psychiatry & Neurology Psychiatry | DX: F10.20 Alcohol dependence, uncomplicated (principal); F17.200 Nicotine dependence, unspecified, uncomplicated ==

== ENCOUNTER 2016-12-09 22:47 | Emergency (ER) | payer MEDICAID, OTHER ==
[~2016-12-09] VITALS: Ht 154.9 cm; Wt 38.7 kg
[2016-12-09 22:48] VITALS: BP 106/71
[2016-12-09] MEDS ORDERED: traMADol 50 MG TAB PO ONE (23:30)
== END 2016-12-09 23:44 | disposition home or self-care (01) ==
LOC: M ED 23:35
DX: G43.909 Migraine, unspecified, not intractable, without status migrainosus (principal); E07.9 Disorder of thyroid, unspecified; F29 Unspecified psychosis not due to a substance or known physiological condition; F17.200 Nicotine dependence, unspecified, uncomplicated; Z79.899 Other long term (current) drug therapy; Z88.0 Allergy status to penicillin; Z88.5 Allergy status to narcotic agent; Z91.012 Allergy to eggs

== ENCOUNTER 2016-12-13 09:00 | Outpatient (RCR) | payer MEDICAID | END 2016-12-19 | LOC: M OUTALCOH 09:00 | PROVIDERS: ATTEND Psychiatry & Neurology Psychiatry | DX: F10.20 Alcohol dependence, uncomplicated (principal); F17.200 Nicotine dependence, unspecified, uncomplicated ==

== ENCOUNTER 2017-01-07 11:00 | Outpatient (RCR) | payer MEDICAID ==
[~2017-01-07 11:00] MED LIST changes: +ABIL1TAB11 PO; -ABIL5TAB5 PO; +IBUP-1022 PO; -IBUP600T26 PO; -RISP0.5T16; +RISP0.5T21; +TRAZ50TA11; +TRAZ50TA11 PO; -TRAZ50TA4; -TRAZ50TA4 PO
== END 2017-01-18 ==
LOC: M OUTALCOH 11:00
PROVIDERS: ATTEND Psychiatry & Neurology Psychiatry
DX: F10.20 Alcohol dependence, uncomplicated (principal); F17.200 Nicotine dependence, unspecified, uncomplicated

== ENCOUNTER → 2017-02-27 | Outpatient (REF) | payer OTHER ==
[2017-02-27 11:41] LABS: BASO % 0.6 % (0.0-1.0); EOS # 0.1 K/mm3 (0.0-0.50); EOS % 1.1 % (0.0-3.0); LARGE UNSTAINED CELL # 0.1 K/mm3 (0.0-0.4); LARGE UNSTAINED CELL % 1.3 % (0.0-4.0); LYMPH # 1.8 K/mm3 (1.5-4.5); LYMPH % 27.9 % (24.0-44.0); MEAN CORPUSCULAR HEMOGLOBIN 32.3 pg (27.0-33.0); MEAN CORPUSCULAR HGB CONC 33.8 g/dl (32.0-36.5); MEAN CORPUSCULAR VOLUME 95.4 fl (80.0-96.0); MONO # 0.3 K/mm3 (0.0-0.8); MONO % 4.6 % (0.0-5.0); NEUTROPHILS # 4.2 K/mm3 (1.8-7.7); NEUTROPHILS % 64.5 % (36.0-66.0); PLATELET COUNT, AUTOMATED 332 k/mm3 (150-450); RED CELL DISTRIBUTION WIDTH 13.4 % (11.5-14.5); WHITE BLOOD COUNT 6.6 K/mm3 (4.0-10.0)
[2017-02-27 12:54] LABS: ALBUMIN 4.3 GM/DL (3.2-5.2); ALBUMIN/GLOBULIN RATIO 1.34 (1.00-1.93); ALKALINE PHOSPHATASE 89 U/L (45-117); ALT/SGPT 17 U/L (12-78); ANION GAP 6 MEQ/L (8-16); AST/SGOT 10 U/L (15-37); BILIRUBIN,TOTAL 0.4 MG/DL (0.2-1.0); BLOOD UREA NITROGEN 11 MG/DL (7-18); CALCIUM LEVEL 9.7 MG/DL (8.5-10.1); CARBON DIOXIDE LEVEL 30 MEQ/L (21-32); CHLORIDE LEVEL 104 MEQ/L (98-107); CREATININE FOR GFR 0.71 MG/DL (0.55-1.02); GLOMERULAR FILTRATION RATE > 60.0 (>58); GLUCOSE, FASTING 97 MG/DL (70-105); POTASSIUM SERUM 4.2 MEQ/L (3.5-5.1); SODIUM LEVEL 140 MEQ/L (136-145); TOTAL PROTEIN 7.5 GM/DL (6.4-8.2)
== END ==
LOC: M SFHCPLAZ 10:28
PROVIDERS: ATTEND Nurse Practitioner Family
DX: F50.2 Bulimia nervosa (principal); R63.0 Anorexia

== ENCOUNTER 2017-03-06 01:24 | Emergency (ER) | payer OTHER ==
[~2017-03-06] VITALS: Ht 154.9 cm; Wt 38.6 kg
[2017-03-06 01:29] VITALS: BP 95/78
[2017-03-06] MEDS ORDERED: HYDROmorphone HCL 1 MG/ML SYRINGE (J1170) IM ONE (02:30)
== END 2017-03-06 02:44 | disposition home or self-care (01) ==
LOC: M ED 01:24
DX: G43.009 Migraine without aura, not intractable, without status migrainosus (principal); F32.9 Major depressive disorder, single episode, unspecified; F17.210 Nicotine dependence, cigarettes, uncomplicated; Z88.0 Allergy status to penicillin; Z88.5 Allergy status to narcotic agent; Z91.012 Allergy to eggs
CPT/HCPCS: 96372; 99282; J1170

== ENCOUNTER → 2019-10-08 | Outpatient (CLI) | payer OTHER, SELFPAY ==
[~2019-10-08] MED LIST changes: +HYDR1TAB33 PO; -HYDRO50TAB PO; -MAGN1TAB25 PO; +MAGN1TAB26 PO; +MIRT-15 PO; -MIRT15SOTA PO; +MIRT1TAB15 PO; -MIRT1TAB3 PO; -NICO21DI5 TD; +NICO21DI6 TD; +RISP0.5T8 PO; +TRAZ-252; +TRAZ-252 PO; +TRAZ1TAB10 PO; -TRAZ50TA11; -TRAZ50TA11 PO; -TRAZO50TA PO; +ZOFR4TAB14 PO; -ZOFR4TAB3 PO; -[UNRECOGNIZED DRUG - CODE] PO
--- NOTE | 2019-10-08 16:37 | REP ---
KUB: Single view. History: Left ureteral stone. There is a 6 mm calcific opacity along the lateral edge of the left psoas margin which may be a proximal ureteral stone. No other urinary tract calculus visible. Bowel gas pattern is unremarkable. Impression: 6 mm calcific density along the left so as may be in the proximal ureter. Electronically Signed by Sterling Murillo MD 10/08/2019 04:29 P
== END ==
LOC: M RAD 15:58
PROVIDERS: ATTEND Urology
DX: N20.1 Calculus of ureter (principal)

== ENCOUNTER → 2019-10-08 | Outpatient (REF) | payer OTHER | LOC: M SMT 17:00 | PROVIDERS: ATTEND Urology | DX: N20.1 Calculus of ureter (principal) ==

== ENCOUNTER 2019-10-21 07:40 | Day surgery (SDC) | payer OTHER ==
[~2019-10-21] VITALS: Ht 152.4 cm; Wt 37.6 kg
[~2019-10-21 07:40] MED LIST changes: +ACET-907 PO; +LIDOCAINE 2% INJ 100 MG/5 ML SDV (FOR ANES.) As Ordered ONE; +LR 1,000 ML IV ONE; +LevoFLOXacin IV 500 MG in IV 1 EA IV ONE; +MIDAZOLAM INJ 2 MG/2 ML VIAL (J2250) As Ordered ONE; +ONDANSETRON 4MG/2ML VIAL (J2405) As Ordered ONE; +PHENYLephrine HCL 500 MCG/5 ML (100MCG/ML) SYRINGE (J2370) As Ordered ONE; +dexameTHASONE 4 MG/ML 1ML VIAL (J1100) As Ordered ONE; +ePHEDrine SULFATE 25 MG/5 ML(5MG/ML) SYRINGE As Ordered ONE; +fentaNYL 100 MCG/2 ML INJECTION (J3010) As Ordered ONE; +propofoL 200 MG/20 ML VIAL As Ordered ONE
[2019-10-21] MEDS ORDERED: CONRAY-60 60% 50ML VIAL (Q9961) As Ordered ONE (09:02)
[2019-10-21] MEDS ORDERED: ACETAMINOPHEN 1000MG 100ML IV BTL (OFIRMEV) (J0131 PER 10MG) As Ordered ONE (09:50)
--- NOTE | 2019-10-21 10:29 | RO ---
DATE OF PROCEDURE: 10/21/2019 PREPROCEDURE DIAGNOSIS: Left ureteral stone. POSTPROCEDURE DIAGNOSIS: Left ureteral stone. PROCEDURE: Cystoscopy, left ureteroscopy with laser lithotripsy and basket extraction of stones, left retrograde pyelogram with intraoperative interpretation of images, left ureteral stent placement. SURGEON: Dr. Zachary Chadwick AMUSEMENT PARK RIDE MECHANIC: None. ANESTHESIA: General. OPERATIVE INDICATIONS: This is a 49-year-old female who was found to have an obstructing approximately 9 mm proximal left ureteral stone. She was brought to the operating room today for treatment. DESCRIPTION OF PROCEDURE: The patient was brought to the operating room and general anesthesia was induced. Prophylactic antibiotics were infused. She was then placed in the dorsal lithotomy position and prepped and draped in the usual sterile fashion. A rigid cystoscope was inserted into the urethral meatus and advanced into the bladder. A guidewire was advanced up the left collecting system. I then advanced a ureteral access sheath up the left collecting system. I then went up the access sheath with a flexible ureteroscope and within the proximal ureter a 9 mm stone was seen impacted. At this point, I fragmented the stone into several smaller pieces using a 272 micron laser fiber. All the fragments were then removed using a basket. I then examined the kidney thoroughly and after ensuring all the fragments were out of the kidney a retrograde pyelogram was performed. This was notable for moderate to severe left hydronephrosis with no extravasation. I then withdrew the ureteroscope along with the access sheath and no additional stones were seen within the ureter. I then utilized the wire to advance a 6 Malay x 22-32 cm JJ ureteral stent into the left collecting system. The wire was removed and there were adequate curls of the stent in the left renal pelvis and in the bladder. The bladder was then emptied of all fluids and this marked the conclusion of the procedure. The patient was then taken out of the dorsal lithotomy position, awakened from anesthesia and transported to the recovery room in stable condition. Estimated blood loss: 5 mL. Complications: None. Specimen: Kidney stone fragments. Plan: The patient will followup in the clinic in a week or two for stent removal. LUIS ALBERTO
--- NOTE | 2019-10-21 10:33 | REP ---
Retrograde pyelogram: Two views. History: Stent placement. 18 seconds fluoroscopy time is reported. Findings: A sequence of two last image hold fluoroscopically obtained spot radiographs of the abdomen document left ureteral cannulation, contrast injection, left-sided hydronephrosis and left ureteral stent placement. Electronically Signed by Sterling Murillo MD 10/21/2019 10:25 A
[2019-10-21] MEDS ORDERED: fentaNYL 100 MCG/2 ML INJECTION (J3010) IV PRN (10:45)
[2019-10-21] MEDS ORDERED: oxyBUTYnin 5 MG TAB PO PRN (10:45)
[2019-10-21] MEDS ORDERED: PERCOCET 5MG/325MG TAB PO PRN (10:45)
[2019-10-21] MEDS ORDERED: LR 1,000 ML IV SCH (10:45)
[2019-10-21] MEDS ORDERED: ONDANSETRON 4MG/2ML VIAL (J2405) IV PRN (10:45)
[2019-10-21 11:20] VITALS: BP 105/64
[2019-10-22] MEDS ORDERED: doesnt know meds (09:40)
== END 2019-10-21 13:10 | disposition home or self-care (01) ==
LOC: M SDC 07:40
PROVIDERS: ATTEND Urology
DX: N20.1 Calculus of ureter (principal); E03.9 Hypothyroidism, unspecified; J44.9 Chronic obstructive pulmonary disease, unspecified; F17.218 Nicotine dependence, cigarettes, with other nicotine-induced disorders; F31.9 Bipolar disorder, unspecified
CPT/HCPCS: 52356; 74420; 82365; 88300; C1769; C1894; C2617; J0131; J1100; J1956; J2250; J2370; J2405; J3010; Q9961

== ENCOUNTER 2019-10-22 09:32 | Emergency (ER) | payer OTHER ==
[~2019-10-22] VITALS: Ht 154.9 cm; Wt 37.7 kg
[~2019-10-22 09:32] MED LIST changes: -LIDOCAINE 2% INJ 100 MG/5 ML SDV (FOR ANES.) As Ordered ONE; -LR 1,000 ML IV ONE; -LevoFLOXacin IV 500 MG in IV 1 EA IV ONE; -MIDAZOLAM INJ 2 MG/2 ML VIAL (J2250) As Ordered ONE; -ONDANSETRON 4MG/2ML VIAL (J2405) As Ordered ONE; -PHENYLephrine HCL 500 MCG/5 ML (100MCG/ML) SYRINGE (J2370) As Ordered ONE; -dexameTHASONE 4 MG/ML 1ML VIAL (J1100) As Ordered ONE; -ePHEDrine SULFATE 25 MG/5 ML(5MG/ML) SYRINGE As Ordered ONE; -fentaNYL 100 MCG/2 ML INJECTION (J3010) As Ordered ONE; -propofoL 200 MG/20 ML VIAL As Ordered ONE
[2019-10-22] MEDS ORDERED: doesnt know meds (09:40)
[2019-10-22 10:12] LABS: BASO % 0.2 % (0.0-1.0); EOS % 0.5 % (0.0-3.0); HEMATOCRIT 36.9 % (36.0-47.0); HEMOGLOBIN 12.5 g/dl (12.0-15.5); LYMPH % 35.6 % (24.0-44.0); MEAN CORPUSCULAR HEMOGLOBIN 32.2 pg (27.0-33.0); MEAN CORPUSCULAR HGB CONC 33.9 g/dl (32.0-36.5); MEAN CORPUSCULAR VOLUME 95.1 fl (80.0-96.0); MONO # 0.5 10^3/uL (0.0-0.8); MONO % 5.4 % (0.0-5.0); NEUTROPHILS # 4.8 10^3/uL (1.5-8.5); NEUTROPHILS % 58.2 % (36.0-66.0); PLATELET COUNT, AUTOMATED 342 10^3/uL (150-450); RED BLOOD COUNT 3.88 10^6/uL (4.00-5.40); WHITE BLOOD COUNT 8.3 10^3/uL (4.0-10.0)
--- NOTE | 2019-10-22 10:26 | REP ---
KUB ABDOMEN AND PELVIS: KUB film of abdomen and pelvis is performed. Left ureteral stent is in good position unchanged since the examination of 10/21/2019. Bowel gas pattern is normal. Tiny phlebolith is seen in the inferior aspect of the pelvis both on the right and on the left. IMPRESSION: No acute findings. The left ureteral stent appears to be in good position. Electronically Signed by Reyes Montalvo MD 10/22/2019 12:43 P
[2019-10-22 10:32] LABS: BLOOD UREA NITROGEN 9 MG/DL (7-18); CALCIUM LEVEL 9.4 MG/DL (8.5-10.1); CARBON DIOXIDE LEVEL 28 MEQ/L (21-32); CHLORIDE LEVEL 106 MEQ/L (98-107); CREATININE FOR GFR 0.82 MG/DL (0.55-1.30); GLOMERULAR FILTRATION RATE > 60.0 (>58); GLUCOSE, FASTING 98 MG/DL (70-100); POTASSIUM SERUM 3.4 MEQ/L (3.5-5.1); SODIUM LEVEL 141 MEQ/L (136-145)
[2019-10-22] MEDS ORDERED: KETOROLAC 30 MG/ML VIAL (J1885) IV ONE (10:45)
[2019-10-22 11:00] LABS: APPEARANCE, URINE CLOUDY (CLEAR); BACTERIA, URINE AUTO NEGATIVE (NEGATIVE); BILIRUBIN, URINE AUTO NEGATIVE (NEGATIVE); BLOOD, URINE BLOOD 3+ (NEGATIVE); COLOR, URINE RED (YELLOW); GLUCOSE, URINE (UA) AUTO NEGATIVE (NEGATIVE); KETONE, URINE AUTO TRACE mg/dL (NEGATIVE); LEUKOCYTE ESTERASE, URINE AUTO 2+ (NEGATIVE); MUCUS, URINE SMALL (NEGATIVE); NITRITE, URINE AUTO NEGATIVE (NEGATIVE); PROTEIN, URINE AUTO 2+ mg/dL (NEGATIVE); RBC, URINE AUTO TNTC /HPF (0-3); SPECIFIC GRAVITY URINE AUTO 1.019 (1.002-1.035); SQUAMOUS EPITHELIAL CELL UR AU 4 /HPF (0-6); UROBILINOGEN, URINE AUTO 0.2 mg/dL (0.0-2.0); WBC, URINE AUTO TNTC /HPF (0-3)
--- NOTE | 2019-10-22 11:12 | REP ---
REASON FOR EXAM: Status post left-sided double pigtail stent catheter placement. There are no prior renal ultrasound examinations for comparison. The prior KUB of 10/22/2019 obtained at 10:06 a.m. has been reviewed. That KUB showed a double pigtail catheter in place, with the proximal portion of which appears to be in the proximal ureter/possible extrarenal pelvis with the distal portion in the region of the urinary bladder on the left. No abnormal renal calcifications were seen on that KUB. Multiple ultrasonographic image of the right kidney show the right kidney to measure 11.9 x 4.3 x 4.1 cm. There are innumerable tiny echogenic foci seen throughout the right kidney, none of which casts acoustic shadows. There are no cystic or solid masses. There is no hydronephrosis. The left kidney measures 11.6 x 4.3 x 5.2 cm. There are numerable tiny echogenic foci seen in the left kidney in the same fashion as on the right kidney none of which casts acoustic shadows. There is no hydronephrosis. There are no cystic or solid masses. There stent seen on the KUB is not seen within the left kidney. Imaging of the urinary bladder shows a specular reflection within the lumen casting an acoustic shadow consistent with the distal portion of the stents. IMPRESSION: As above. Electronically Signed by Jose Zimmerman DO 10/22/2019 12:37 P
[2019-10-22 11:44] VITALS: BP 100/69
== END 2019-10-22 11:46 | disposition home or self-care (01) ==
LOC: M ED 09:32
DX: R31.9 Hematuria, unspecified (principal); Z96.0 Presence of urogenital implants; G89.18 Other acute postprocedural pain; J44.9 Chronic obstructive pulmonary disease, unspecified; E03.9 Hypothyroidism, unspecified; F31.9 Bipolar disorder, unspecified; G43.909 Migraine, unspecified, not intractable, without status migrainosus; K21.9 Gastro-esophageal reflux disease without esophagitis; F14.10 Cocaine abuse, uncomplicated; Z88.0 Allergy status to penicillin; Z88.5 Allergy status to narcotic agent; Z91.012 Allergy to eggs; F17.210 Nicotine dependence, cigarettes, uncomplicated
CPT/HCPCS: 74018; 76775; 80048; 81001; 85025; 96374; 99284; J1885

== ENCOUNTER → 2022-04-04 | Outpatient (CLI) | payer OTHER ==
[~2022-04-04] MED LIST changes: +ALBU8.5H; -CITA40TA4 PO; +CITA40TA7 PO; -MAG400TA PO; +MAGN400T35 PO; +OLAN1TAB16; +RISP0.5T18 PO; -RISP0.5T8 PO; +VALP250S19; +ZOLO100T PO; +doesnt know meds
[2022-04-04 09:57] LABS: BASO % 0.4 % (0.0-1.0); EOS # 0.1 10^3/uL (0.0-0.5); EOS % 1.2 % (0.0-3.0); HEMATOCRIT 42.3 % (36.0-47.0); HEMOGLOBIN 14.5 g/dl (12.0-15.5); LYMPH # 2.2 10^3/uL (1.5-5.0); LYMPH % 32.5 % (24.0-44.0); MEAN CORPUSCULAR HEMOGLOBIN 32.4 pg (27.0-33.0); MEAN CORPUSCULAR HGB CONC 34.3 g/dl (32.0-36.5); MEAN CORPUSCULAR VOLUME 94.6 fl (80.0-96.0); MONO # 0.3 10^3/uL (0.0-0.8); NEUTROPHILS # 4.2 10^3/uL (1.5-8.5); NEUTROPHILS % 61.8 % (36.0-66.0); PLATELET COUNT, AUTOMATED 275 10^3/uL (150-450); RED BLOOD COUNT 4.47 10^6/uL (4.00-5.40); WHITE BLOOD COUNT 6.8 10^3/uL (4.0-10.0)
[2022-04-04 10:31] LABS: ALBUMIN 3.9 GM/DL (3.2-5.2); ALT/SGPT 16 U/L (12-78); BILIRUBIN,DIRECT 0.1 MG/DL (0.0-0.2); BILIRUBIN,TOTAL 0.5 MG/DL (0.2-1.0); BLOOD UREA NITROGEN 12 MG/DL (7-18); CARBON DIOXIDE LEVEL 31 MEQ/L (21-32); CHLORIDE LEVEL 105 MEQ/L (98-107); CHOLESTEROL LEVEL 207 MG/DL (<200); CHOLESTEROL RISK RATIO 3.044 (<5); GLOMERULAR FILTRATION RATE > 60.0 (>51); GLUCOSE, FASTING 153 MG/DL (70-100); HDL CHOLESTEROL 68 MG/DL (>40); LDL CHOLESTEROL 119 MG/DL (<100); NON-HDL-C 139 MG/DL; PHOSPHORUS LEVEL 3.3 MG/DL (2.5-4.9); POTASSIUM SERUM 3.8 MEQ/L (3.5-5.1); SODIUM LEVEL 138 MEQ/L (136-145); THYROID STIMULATING HORMONE 0.716 uIU/ML (0.358-3.740); TOTAL PROTEIN 6.8 GM/DL (6.4-8.2); TRIGLYCERIDES LEVEL 101 MG/DL (<150)
[2022-04-04 10:36] LABS: HEMOGLOBIN A1c 5.4 %
== END ==
LOC: M EKG 09:04
PROVIDERS: ATTEND Registered Nurse
DX: F31.81 Bipolar II disorder (principal)

== ENCOUNTER 2022-04-09 15:29 | Emergency (ER) | payer OTHER ==
[~2022-04-09] VITALS: Ht 154.9 cm; Wt 36.8 kg
[2022-04-09 15:32] VITALS: BP 110/57
[2022-04-09 16:50] LABS: HEMATOCRIT 37.8 % (36.0-47.0); HEMOGLOBIN 13.1 g/dl (12.0-15.5); MEAN CORPUSCULAR HEMOGLOBIN 32.6 pg (27.0-33.0); MEAN CORPUSCULAR HGB CONC 34.7 g/dl (32.0-36.5); PLATELET COUNT, AUTOMATED 290 10^3/uL (150-450); RED BLOOD COUNT 4.02 10^6/uL (4.00-5.40); WHITE BLOOD COUNT 6.2 10^3/uL (4.0-10.0)
[2022-04-09 17:13] LABS: HCG, SERUM QUALITATIVE NEGATIVE (NEGATIVE)
[2022-04-09 17:25] LABS: AMPHETAMINES LEVEL URINE NEGATIVE (NEGATIVE); BARBITURATES URINE NEGATIVE (NEGATIVE); BENZODIAZEPINES URINE NEGATIVE (NEGATIVE); CANNABINOIDS URINE NEGATIVE (NEGATIVE); COCAINE METABOLITE URINE NEGATIVE (NEGATIVE); METHADONE URINE NEGATIVE (NEGATIVE); OPIATES URINE NEGATIVE (NEGATIVE); PHENCYCLIDINE URINE NEGATIVE (NEGATIVE)
[2022-04-09 17:31] LABS: ALBUMIN 3.9 GM/DL (3.2-5.2); ALT/SGPT 23 U/L (12-78); BILIRUBIN,DIRECT 0.1 MG/DL (0.0-0.2); BILIRUBIN,TOTAL 0.4 MG/DL (0.2-1.0); BLOOD UREA NITROGEN 16 MG/DL (7-18); CARBON DIOXIDE LEVEL 28 MEQ/L (21-32); CHLORIDE LEVEL 106 MEQ/L (98-107); CREATININE FOR GFR 0.58 MG/DL (0.55-1.30); GLOMERULAR FILTRATION RATE > 60.0 (>51); GLUCOSE, FASTING 88 MG/DL (70-100); POTASSIUM SERUM 3.9 MEQ/L (3.5-5.1); SODIUM LEVEL 139 MEQ/L (136-145); TOTAL PROTEIN 6.6 GM/DL (6.4-8.2)
[2022-04-09 17:32] LABS: ACETAMINOPHEN LEVEL < 2.0 UG/ML (10.0-30.0); ETHYL ALCOHOL (ETHANOL) < 0.003 % (0.000-0.010); SALICYLATE LEVEL 5.1 MG/DL (5.0-30.0); THYROID STIMULATING HORMONE 0.756 uIU/ML (0.358-3.740)
== END 2022-04-09 18:26 | disposition home or self-care (01) ==
LOC: M ED 15:29
DX: R63.0 Anorexia (principal); F32.A Depression, unspecified; F15.10 Other stimulant abuse, uncomplicated; Z79.899 Other long term (current) drug therapy; Z88.0 Allergy status to penicillin; Z88.5 Allergy status to narcotic agent; Z91.012 Allergy to eggs; F17.200 Nicotine dependence, unspecified, uncomplicated

== ENCOUNTER → 2022-04-16 | Outpatient (CLI) | payer OTHER | LOC: M PLAIMG 10:16 | PROVIDERS: ATTEND Nurse Practitioner Family | DX: M47.16 Other spondylosis with myelopathy, lumbar region (principal) ==